=== PATIENT | female | born 1965 | race Caucasian/White ===

== ENCOUNTER 2020-12-20 10:14 | Outpatient (REF) | payer MEDICARE, MEDICAID, SELFPAY ==
[2020-12-20 11:22] LABS: MANUAL DIFF FLAG NO
[2020-12-20 11:32] LABS: Basophils Percent Auto 1.1 % (0-2); Eosinophils Absolute Auto 0.1 X10*3/uL (0.0-0.4); Eosinophils Percent Auto 3.1 % (0-4); Hematocrit 38.9 % (37-47); Hemoglobin 12.5 g/dl (12.0-16.0); Lymphocytes Absolute Auto 1.3 X10*3/uL (1.2-4.9); Lymphocytes Percent Auto 36.6 % (20-40); Mean Corpuscular HGB Conc 32.1 g/dl (31.0-35.0); Mean Corpuscular Hemoglobin 29.9 pg (27.0-33.0); Mean Corpuscular Volume 93.1 fL (80-98); Mean Platelet Volume 9.9 fL (9.4-12.3); Monocytes Absolute Auto 0.2 X10*3/uL (0.1-1.2); Monocytes Percent Auto 6.4 % (2-11); Neutrophils Absolute Auto 1.9 X10*3/uL (2.0-8.3); Neutrophils Percent Auto 52.8 % (45-73); Platelet Count 293 X10*3/uL (160-400); Red Blood Count 4.18 X10*6/uL (4.20-5.50); Red Cell Distribution Width 12.9 % (11.0-16.0); White Blood Count 3.6 X10*3/uL (4.8-10.8)
[2020-12-20 12:03] LABS: Alanine Aminotransferase 13 U/L (0-31); Alkaline Phosphatase 46 U/L (39-117); Anion Gap 10 (12-20); Aspartate Amino Transferase 18 U/L (5-31); Bilirubin Total 0.4 mg/dL (0.0-1.0); Blood Urea Nitrogen 14 mg/dL (9-16); Calcium 9.1 mg/dL (8.4-10.2); Carbon Dioxide 28 mmol/L (22-29); Chloride 108 mmol/L (96-108); Cholesterol 169 mg/dL; Estimated Glomerular Filt Rate > 60; Glucose Fasting 79 mg/dL (60-99); HDL Cholesterol 71 mg/dL; LDL Cholesterol Calculated 89 mg/dl; Magnesium 2.1 mg/dL (1.6-2.6); Potassium 4.4 mmol/L (3.3-5.1); Sodium 142 mmol/L (135-145); Total Protein 6.7 g/dL (6.5-8.0); Triglycerides 45 mg/dL
[2020-12-20 12:11] LABS: Thyroid Stimulating Hormone 2.01 uIU/mL (0.32-4.0)
== END 2020-12-20 10:15 | disposition home or self-care (01) ==
LOC: HO.HMGCLDS 10:14
PROVIDERS: PCP Internal Medicine; Visit Provider Internal Medicine
DX: E03.9 Hypothyroidism, unspecified (principal); G43.111 Migraine with aura, intractable, with status migrainosus; K21.9 Gastro-esophageal reflux disease without esophagitis
CPT/HCPCS: 36415; 80053; 80061; 82306; 83735; 84443; 85025

== ENCOUNTER → 2021-12-13 10:16 | Outpatient (BNVA) | payer MEDICARE, MEDICAID, SELFPAY | PROVIDERS: PCP Internal Medicine; Referring Provider Internal Medicine; Visit Provider Surgery | DX: K64.8 Other hemorrhoids (principal) | CPT/HCPCS: 46600; 99202 ==

== ENCOUNTER 2022-03-23 09:47 | Outpatient (REF) | payer MEDICARE, MEDICAID, SELFPAY ==
[2022-03-23 11:14] LABS: Thyroid Stimulating Hormone 1.79 uIU/mL (0.32-4.0)
== END 2022-03-23 09:48 | disposition home or self-care (01) ==
LOC: HO.LAB 09:47
PROVIDERS: PCP Internal Medicine; Visit Provider Internal Medicine Endocrinology, Diabetes & Metabolism
DX: E03.9 Hypothyroidism, unspecified (principal)
CPT/HCPCS: 36415; 84443

== ENCOUNTER 2023-09-26 09:24 | Outpatient (REF) | payer MEDICARE, MEDICAID, SELFPAY ==
[2023-09-26 09:54] LABS: MANUAL DIFF FLAG NO
[2023-09-26 10:08] LABS: Basophils Percent Auto 1.2 % (0-2); Eosinophils Absolute Auto 0.1 X10*3/uL (0.0-0.4); Eosinophils Percent Auto 2.4 % (0-4); Hematocrit 38.9 % (37.0-47.0); Hemoglobin 12.9 g/dl (12.0-16.0); Imm Gran Abs Auto 0.01 X10*3/uL (0.00-0.03); Imm Gran Pct Auto 0.3 % (0.0-0.4); Lymphocytes Absolute Auto 1.2 X10*3/uL (1.2-4.9); Lymphocytes Percent Auto 36.6 % (20-40); Mean Corpuscular HGB Conc 33.2 g/dl (31.0-35.0); Mean Corpuscular Hemoglobin 29.9 pg (27.0-33.0); Mean Corpuscular Volume 90.3 fL (80.0-98.0); Mean Platelet Volume 9.3 fL (9.4-12.3); Monocytes Absolute Auto 0.3 X10*3/uL (0.1-1.2); Monocytes Percent Auto 7.4 % (2-11); Neutrophils Absolute Auto 1.8 x10*3/uL (2.0-8.3); Neutrophils Percent Auto 52.1 % (45-73); Platelet Count 223 X10*3/uL (160-400); Red Blood Count 4.31 X10*6/uL (4.20-5.50); Red Cell Distribution Width 11.9 % (11.0-16.0); White Blood Count 3.4 X10*3/uL (4.8-10.8)
[2023-09-26 10:46] LABS: Alanine Aminotransferase 18 U/L (0-31); Alkaline Phosphatase 49 U/L (39-117); Anion Gap 11 (12-20); Aspartate Amino Transferase 21 U/L (5-31); Bilirubin Total 0.5 mg/dL (0.0-1.0); Blood Urea Nitrogen 21 mg/dL (9-16); C Reactive Protein < 0.04 mg/dL (< or = 0.50); Calcium 9.5 mg/dL (8.4-10.2); Carbon Dioxide 29 mmol/L (22-29); Chloride 105 mmol/L (96-108); Cholesterol 206 mg/dL (<200); Estimated Glomerular Filt Rate 55; Glucose Fasting 84 mg/dL (60-99); HDL Cholesterol 82 mg/dL (>40); LDL Cholesterol Calculated 116 mg/dL (<100); Potassium 4.3 mmol/L (3.3-5.1); Sodium 141 mmol/L (135-145); Total Protein 7.2 g/dL (6.5-8.0); Triglycerides 41 mg/dL (<150)
[2023-09-26 10:47] LABS: Erythrocyte Sedimentation Rate 10 MM/HR (0-20)
[2023-09-26 11:00] LABS: Thyroid Stimulating Hormone 2.69 uIU/mL (0.32-4.0)
[2023-09-27 13:53] LABS: Thyroid Peroxidase Antibodies 593 IU/mL (<9)
[2023-10-02 15:42] LABS: Anti Nuclear Antibody Screen POSITIVE (NEGATIVE)
[2023-10-02 15:49] LABS: Anti Nuclear Antibody Pattern Nuclear, Homogeneous
== END 2023-09-26 09:25 | disposition home or self-care (01) ==
LOC: HO.LAB 09:24
PROVIDERS: PCP Internal Medicine; Visit Provider Internal Medicine
DX: E03.9 Hypothyroidism, unspecified (principal); K21.9 Gastro-esophageal reflux disease without esophagitis; G44.229 Chronic tension-type headache, not intractable
CPT/HCPCS: 36415; 80053; 80061; 84443; 85025; 85652; 86038; 86039; 86140; 86376

== ENCOUNTER 2024-01-21 10:25 | Outpatient (REF) | payer MEDICARE, MEDICAID, SELFPAY ==
--- NOTE | ~2024-01-21 | US_ITS ---
EXAMINATION: US THYROID CLINICAL INFORMATION: Nontoxic multinodular goiter. COMPARISON: Thyroid ultrasound 10/14/2018. TECHNIQUE: Linear transducer jackson-scale and color Doppler examination with attention to the region of the thyroid. FINDINGS: SIZE: Measurements of the thyroid lobes and nodules are given in sagittal, anteroposterior and transverse dimensions respectively. Right Thyroid Lobe: 5.7 x 2.5 x 2.4 cm, volume 17.9 mL. Previously 4.6 x 1.9 x 1.4 cm, volume 6.4 mL. Parenchyma: The gland echotexture is heterogeneous. Thyroid vascularity is increased. Left Thyroid Lobe: 4.2 x 1.2 x 1.3 cm, volume 3.4 mL. Previously 3.4 x 1.2 x 1.3 cm, volume 2.8 mL. Parenchyma: The gland echotexture is heterogeneous. Thyroid vascularity is increased. Isthmus: 0.2 cm in maximum AP dimension. Previously 0.3 cm. Estimated total number of nodules greater than or equal to 1 cm: 2. Speech And Language Clinician nodules are described as follows: 1. Location: Right mid/inferior. Size: 3.5 x 2.3 x 2.5 cm, volume 10.0 mL. Previously: 2.3 x 1.8 x 1.6 cm, volume 3.46 mL. Nodule characteristics: Composition: Solid (2). Echogenicity: Isoechoic (1). Shape: Not taller than wide (0). Margins: Smooth (0). Echogenic Foci: None (0). ACR TI-RADS total points: 3 ACR TI-RADS category: 3 Significant change in size (>/= 20% in 2 dimensions and minimal increase of 2 mm or 50% or greater increase in volume): Yes Change in features: No Change in ACR TI-RADS risk category: Not applicable 2. Location: Right isthmus. Size: 2.3 x 0.9 x 1.8 cm, volume 1.79 mL. Previously: 1.8 x 0.9 x 1.3 cm, volume 1.10 mL. Nodule characteristics: Composition: Solid (2). Echogenicity: Isoechoic (1). Shape: Not taller than wide (0). Margins: Smooth (0). Echogenic Foci: None (0). ACR TI-RADS total points: 3 ACR TI-RADS category: 3 Significant change in size (>/= 20% in 2 dimensions and minimal increase of 2 mm or 50% or greater increase in volume): Yes Change in features: No Change in ACR TI-RADS risk category: Not applicable 3. Location: Isthmus. Size: 0.3 x 0.6 x 0.4 cm, volume 0.04 mL. Previously: 0.6 x 0.3 x 0.6 cm, volume 0.06 mL. Nodule characteristics: Composition: Cystic(0). ACR TI-RADS total points: 0 ACR TI-RADS category: 1 Significant change in size (>/= 20% in 2 dimensions and minimal increase of 2 mm or 50% or greater increase in volume): No Change in features: No Change in ACR TI-RADS risk category: Not applicable NODES: No lymphadenopathy is seen in the tissue surrounding the thyroid gland. US/US thyroid IMPRESSION: Heterogeneous and hypervascular thyroid gland with at least 2 distinct solid nodules that are increased in size compared to 10/14/2018 classified as TR-3 measuring 3.5 and 2.3 cm. If not previously obtained, further evaluation of the 3.5 cm nodule is recommended. In addition follow-up ultrasound in one year is recommended. ACR TI-RADS RECOMMENDATION REFERENCE: Ultrasound-guided fine-needle aspiration, follow up ultrasound, no further followup. * TR1 (0 point) and TR2 (2 points): No FNA or followup * TR3 (3 points): FNA if more than or equal to 2.5 cm in maximum dimension, follow up ultrasound in 1, 3 and 5 years if 1.5 to 2.4 cm in maximum dimension. * TR4 (4-6 points): FNA if more than or equal to 1.5 cm in maximum dimension, follow up ultrasound in 1, 2, 3 and 5 years if 1 to 1.4 cm in maximum dimension. * TR5 (more than or equal to 7 points): FNA if more than or equal to 1 cm in maximum dimension, follow up ultrasound every year for 5 years if 0.5 to 0.9 cm in maximum dimension. * TR3, TR4 or TR5 nodules that are below the size threshold for follow up receive no followup.
== END 2024-01-21 10:26 | disposition home or self-care (01) ==
LOC: HO.HMGCX 10:25
PROVIDERS: PCP Internal Medicine; Visit Provider Internal Medicine Endocrinology, Diabetes & Metabolism
DX: E04.2 Nontoxic multinodular goiter (principal)
CPT/HCPCS: 76536

== ENCOUNTER 2024-07-15 12:49 | Outpatient (REF) | payer MEDICARE, MEDICAID, SELFPAY | END 2024-07-15 12:50 | disposition home or self-care (01) | LOC: HO.US 12:49 | PROVIDERS: PCP Internal Medicine; Visit Provider Internal Medicine Endocrinology, Diabetes & Metabolism | DX: E04.2 Nontoxic multinodular goiter (principal) | CPT/HCPCS: 76536 ==

== ENCOUNTER 2024-09-02 12:54 | Outpatient (AMB) | payer MEDICARE, MEDICAID, SELFPAY ==
--- NOTE | 2024-09-02 13:12 | A.OFFPC_ITS ---
Vital Signs 09/02/24 13:26 Height 5 ft 7 in Weight 173 lb BMI 27.1 BP 122/62 Blood Pressure Location Rt brachial Pulse 65 Pulse Source Pulse Oximeter Temp 97.3 F Pulse Oximetry (%) 98 Intake Visit Reasons: ER Follow up Intake Note: here for an er follow has burning and feels like something stuck in the throat feels it in her shoulder blades can't eat gets stomach ache. Had fever last night temp of 102 body aches and vomiting Allergies meperidine [Demerol] Allergy (Unknown, Verified 09/02/24 13:23) nausea From [facility] Allergy (Unknown, Uncoded 06/19/23 11:24) NAUSEA & VOMITING Wellbutrin Allergy (Unknown, Uncoded 06/19/23 11:24) nausea PFSH Medical History (System 06/19/23 @ 11:24 by Sophia Pollock) Hemorrhoids with complication Hypertension Depression Thyroid disease Surgical History (System 06/19/23 @ 11:24 by Sophia Pollock) History of excision of tumor of brain meninges History of tonsillectomy Family History Mother Skin cancer Physical exam (Primary Care) Vital Signs: Last Vital Signs Temp 97.3 F 09/02/24 13:26 Pulse 65 09/02/24 13:26 BP 122/62 09/02/24 13:26 Pulse Ox 98 09/02/24 13:26 BMI result Body Mass Index 27.1 Coding Level of Care Code New Pt Level 4 (82969) Complex EM visit Add On G2211 Diagnoses Dysphagia R13.10 Assessment & Plan Assessment & Plan (1) Dysphagia: Code(s): R13.10 - Dysphagia, unspecified Plan: Patient was encouraged to take Sucralfate 4 times a day, Zofran, Pepcid in addition to Pantoprazole twice a day. Also lidocaine/maalox concoction has been added. A stat UGI series has been requested. A call was placed to the GI MD to see if an endoscopic procedure could be arranged quickly. Plan History of Present Illness The patient is a 58-year-old female presenting with gastroesophageal reflux symptoms and esophageal discomfort. In 2017, she experienced an esophageal stricture, which was treated with dilation. Recently, in the past two months, she reports the recurrence of discomfort, particularly between the shoulder blades. Over the last three weeks, the patient has described burning sensations in the upper abdomen with associated pain and difficulties lying flat owing to these symptoms. Despite being on pantoprazole and ondansetron, the symptoms have not improved significantly. In the past, she found these medications beneficial, but currently, they offer minimal relief. About two weeks ago, symptoms intensified, prompting an emergency department visit at [facility], resulting in no new diagnostic tests but a medication review and blood work. Recently, she has symptoms of body aches, chills, fever, and vomiting. No significant resolution of GERD symptoms has occurred since recovering from the virus. . 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 - Alcohol: Does not consume alcohol. - Smoking: Information not provided. - Recreation: Plans to vacation in early September, highlighting a desire for symptom improvement. Review of Systems - Gastrointestinal: Reports nausea. - Musculoskeletal: Reports body aches and chills. Physical Exam General: Appearance normal, both eyes and all related structures Nutritional Appearance: Not well nourished Orientation/consciousness: Patient oriented x3 Limitations: No limitations Head: Normal to inspection Neck: Normal visual inspection Chest: Normal palpation of entire chest wall Respiratory: Normal respiratory effort Neurology: Patient oriented x3 Results - Labs: Blood work completed previously; results within normal range. Plan - Resume pantoprazole 40 mg twice daily. - Engage upper GI series with urgent status to reassess esophageal stricture. - Continue ondansetron as needed for nausea. - Add sucralfate four times daily despite current questionable efficacy. - Introduce viscous lidocaine for symptomatic relief and encourage its use pre- prandially. Patient was informed and verbally consented to the use of an ambient scribe for clinic note documentation during this visit. Discussion Notes I discussed in detail the patient's current symptoms, potential diagnosis of esophageal stricture, and confirmed GERD. We reviewed past treatments, noting the limited efficacy of current medications and reconsidered dose adjustments. I advocated for a prompt upper GI series to evaluate esophageal conditions. The necessity of symptom control in anticipation of the patient's September travel plans was emphasized. We discussed the rationale for reinstating the sucralfate regimen and adding viscous lidocaine for temporary relief pre-meals. The patient consented to these diagnostic evaluations and treatment alterations. Additionally, an alternative gastroenterology follow-up was explored for potential expedited care. Patient Instructions - Continue pantoprazole 40 mg twice daily. - Take ondansetron as needed for nausea. - Increase sucralfate intake to four times daily, despite perceived limited benefit; reassess effectiveness at follow-up. - Use viscous lidocaine prior to meals for symptomatic relief. - Await upper GI series results and adhere to recommended follow-up care. - Seek emergency medical attention if symptoms worsen or new concerning symptoms arise. Orders: Orders Basic Metabolic Panel Today R13.10 - Dysphagia, unspecified Erythrocyte Sedimentation Rate Today R13.10 - Dysphagia, unspecified [place] upper GI series Today R13.10 - Dysphagia, unspecified Complete Blood Count no Diff Today R13.10 - Dysphagia, unspecified Lipid Panel Today R13.10 - Dysphagia, unspecified Liver Panel Today R13.10 - Dysphagia, unspecified Thyroid Stimulating Hormone Today R13.10 - Dysphagia, unspecified Referrals Gastroenterology Referral R13.10 - Dysphagia, unspecified Medications: New Magic Mouthwash Diphen/Lido/Antacid 1:1:1 Lidocaine Viscous 2 % 80mL; diphenhydramine 12.5 mg/5 mL 80mL; aluminum-mag hydrox-simeth [id number]/5mL 80mL 15 mL PO TID 240 mL 0RF
[2024-09-02 13:26] VITALS: BP 122/62; PULSE 65; TEMP 36.3; O2SAT 98; BMI 27.1
== END 2024-09-02 13:50 | disposition home or self-care (01) ==
LOC: HO.HMCSH 12:54
PROVIDERS: PCP Internal Medicine; Visit Provider Internal Medicine
DX: R13.10 Dysphagia, unspecified (principal)

== ENCOUNTER → 2024-09-02 12:54 | Outpatient (BNVA) | payer MEDICARE, MEDICAID, SELFPAY | PROVIDERS: PCP Internal Medicine; Visit Provider Internal Medicine | DX: R13.10 Dysphagia, unspecified (principal) | CPT/HCPCS: 99202 ==

== ENCOUNTER 2024-09-04 11:38 | Outpatient (REF) | payer MEDICARE, MEDICAID, SELFPAY ==
--- NOTE | 2024-09-04 13:08 | ECG_ITS ---
Test Reason : R09.A2 Blood Pressure : */* mmHG Vent. Rate : 57 BPM Atrial Rate : 57 BPM P-R Int : 132 ms QRS Dur : 80 ms QT Int : 426 ms P-R-T Axes : 21 25 49 degrees QTcB Int : 414 ms Sinus bradycardia Otherwise normal ECG When compared with ECG of 15-Aug-2004 13:52, T wave inversion no longer evident in Anterior leads Referred By: Everett Carter Electronically Signed By: JOSE LUIS GUTIERRES MD
[2024-09-04 13:46] LABS: Hematocrit 37.6 % (37.0-47.0); Hemoglobin 12.7 g/dl (12.0-16.0); Mean Corpuscular HGB Conc 33.8 g/dl (31.0-35.0); Mean Corpuscular Hemoglobin 29.8 pg (27.0-33.0); Mean Corpuscular Volume 88.3 fL (80.0-98.0); Mean Platelet Volume 9.6 fL (9.4-12.3); Platelet Count 245 X10*3/uL (160-400); Red Blood Count 4.26 X10*6/uL (4.20-5.50); White Blood Count 4.9 X10*3/uL (4.8-10.8)
[2024-09-04 14:28] LABS: Erythrocyte Sedimentation Rate 10 MM/HR (0-20)
[2024-09-04 14:31] LABS: Alanine Aminotransferase 25 U/L (0-31); Alkaline Phosphatase 41 U/L (39-117); Anion Gap 9 (12-20); Aspartate Amino Transferase 26 U/L (5-31); Bilirubin Direct 0.2 mg/dL (0.0-0.5); Bilirubin Total 0.5 mg/dL (0.0-1.0); Blood Urea Nitrogen 12 mg/dL (9-16); Carbon Dioxide 27 mmol/L (22-29); Chloride 111 mmol/L (96-108); Cholesterol 173 mg/dL (<200); Estimated Glomerular Filt Rate > 60; Glucose Random 80 mg/dL (60-115); HDL Cholesterol 61 mg/dL (>40); LDL Cholesterol Calculated 102 mg/dL (<100); Potassium 4.1 mmol/L (3.3-5.1); Sodium 143 mmol/L (135-145); Total Protein 7.3 g/dL (6.5-8.0); Triglycerides 51 mg/dL (<150)
== END 2024-09-04 11:39 | disposition home or self-care (01) ==
LOC: HO.LAB 11:38
PROVIDERS: PCP Internal Medicine; Referring Provider Internal Medicine; Visit Provider Internal Medicine Gastroenterology
DX: R09.A2 Foreign body sensation, throat (principal); R13.10 Dysphagia, unspecified; R07.89 Other chest pain
CPT/HCPCS: 36415; 80048; 80061; 80076; 84443; 85027; 85652; 93005; 99202

== ENCOUNTER 2024-09-04 11:38 | Outpatient (AMB) | payer MEDICARE, MEDICAID, SELFPAY ==
--- NOTE | 2024-09-04 11:40 | MHC.OFFVIS ---
Vital Signs 09/04/24 11:41 Height 5 ft 7 in Weight 173 lb 4.533 oz BMI 27.1 BP 134/75 Blood Pressure Location Lt brachial Position Sitting Pulse 66 Intake Visit Reasons: Dysphagia Intake Note: New patient in office today for dysphagia. CC: Patient c/o feeling a constriction from her throat and is now feeling it from her chest and back. She had a a balloon procedure to stretch her esophagus on 2016 at [facility]. She also reports epigastric pain after eating, constipation, heartburn, and acid reflux. She was seen in the ER @ [facility] last Saturday for GERD and nausea. 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 Required: No Accompanied by: Self / Same As Patient Allergies meperidine [Demerol] Allergy (Unknown, Verified 09/04/24 11:50) nausea From VISTARIL Allergy (Unknown, Uncoded 06/19/23 11:24) NAUSEA & VOMITING Wellbutrin Allergy (Unknown, Uncoded 06/19/23 11:24) nausea HPI HPI Dysphagia: Details: HPI 58 yr old f with hx of thyroid dz here for assessment She has feeling of something stuck in the esophagus she can swallow fine she has a feeling like something squeezing in the chest, does not go to arm or neck, worse with bending or lifting she has a lot of heartburn, she takes pantoprazole 80 mg and it does not work she tried carafate after going to ER and pepcid, zofran, maybe helping a little she has constipation, normal for her, going on for years small amount of blood in stool she had cologuard and it was negative she had last EGD 2017 and she had stretching for the same sx except she has burning in the stomahc as well now she has migraines and was taking a lot of 400 mg ibuprofen three times a week for years weight loss over 1 week, eating small amounts of food due to stomach irritation ROS: Constitutional : No Weight loss, No Fever, No Chills ENT/Mouth : No sore throat, No Rhinorrhea Eyes: No Swelling, No Redness Cardiovascular : No Chest Pain, No SOB, No Edema Respiratory : No Cough, No Sputum, No Wheezing Gastrointestinal : see HPI Genitourinary : NO Dysuria, No Urinary Frequency, No Hematuria, No Urgency Musculoskeletal : + joint pain, No Myalgias, No Joint Swelling Skin : No Skin Lesions, No rash Neuro : No Weakness, No Numbness, No Dizziness, + Headache Psych : No Anxiety/Panic, No Depression Heme/Lymph: No Bruising, No Lymphadenopathy Endocrine : No Polyuria, No Polydipsia All other systems reviewed and are negative. Medical History Hemorrhoids with complication Hypertension Depression Thyroid disease Surgical History History of excision of tumor of brain meninges History of tonsillectomy Family History Mother Skin cancer Social History non smoker, no alcohol or drug use EXAM: GENERAL: The patient is well developed and nontoxic. VITAL SIGNS:see workflow HEENT: Nonicteric sclerae, PERRLA, EOMI. Oropharynx clear. Moist mucous membranes. Conjunctivae appear well perfused. thyroid nodules on left felt, tender CHEST: Chest wall is nontender. HEART: Regular rate and rhythm without murmurs. LUNGS: Clear to auscultation bilaterally. ABDOMEN: Soft, positive bowel sounds, tender epigastrium, no organomegaly.no flank tenderness SKIN: No rash, no excessive bruising, petechiae, or purpura. NEUROLOGIC: Cranial nerves II-XII intact without motor/sensory deficit. Psych: normal affect A/P: 1/ GLobus sensation, improved previously with dilation, could be dysmotility, GERD, stricture 2/ epigastric pain, ddx: PUD, neoplasia 3/ rectal bleeding, could be hemorrhoidal , but need to r/o low lying rectal lesion PLAN: 1/ labs 2/ ECG--sx not typical of cardiac cause but will check 3/ egd and colo with suprep and zofran, urgent PFSH Medical History Hemorrhoids with complication Hypertension Depression Thyroid disease Surgical History History of esophagogastroduodenoscopy (EGD) History of excision of tumor of brain meninges History of tonsillectomy Family History Mother Skin cancer Social History Alcohol intake: never Patient Tobacco Use Status: Never used Tobacco Use of substances other than those prescribed or required for medical reasons: No Physical Exam Vital Signs: Last Vital Signs Pulse 66 09/04/24 11:41 BP 134/75 09/04/24 11:41 BMI result Body Mass Index 27.1 Assessment & Plan Assessment & Plan (1) Globus sensation: Code(s): R09.A2 - Foreign body sensation, throat Category: Medical Plan: as above (2) Chest discomfort: Code(s): R07.89 - Other chest pain Category: Medical Plan: as above Orders: Orders ECG 12 lead EKG Today R07.89 - Other chest pain, R09.A2 - Foreign body sensation, throat Medications: New ondansetron 4 mg PO Q8H PRN 10 tabs 0RF nausea and vomiting sodium,potassium,mag sulfates 17.5-3.13-1.6 gram (Suprep Bowel Prep Kit) DILUTE; drink 1/2 at 6-8 pm and half at 11 PM- 1AM 354 mL 0RF Coding Level of Care Code New Pt Level 4 (50282) Diagnoses Globus sensation R09.A2 Chest discomfort R07.89
[2024-09-04 11:41] VITALS: BP 134/75; PULSE 66; BMI 27.1
== END 2024-09-04 14:02 | disposition home or self-care (01) ==
PROVIDERS: PCP Internal Medicine; Visit Provider Internal Medicine Gastroenterology
DX: R09.A2 Foreign body sensation, throat (principal); R07.89 Other chest pain
CPT/HCPCS: 99204

== ENCOUNTER → 2024-09-04 13:08 | Outpatient (BNV) | payer MEDICARE, MEDICAID, SELFPAY | PROVIDERS: PCP Internal Medicine; Referring Provider Internal Medicine; Visit Provider Internal Medicine Cardiovascular Disease | DX: R00.1 Bradycardia, unspecified (principal) | CPT/HCPCS: 93010 ==

== ENCOUNTER 2024-09-08 08:53 | Day surgery (SDC) | payer MEDICARE, MEDICAID, SELFPAY ==
--- NOTE | 2024-09-07 09:56 | HO.ANESPROP2 ---
Documented by User: Madeline Zambrano NP 09/07/24 09:56 HPI - Anesthesia Eval Consult details Narrative: 58yo F for Upper Endoscopy and Colonoscopy PMF Active Problems Active Problems: All Active Problems Chest discomfort (Acute) Globus sensation (Acute) Hemorrhoids with complication (Acute) Hypertension (Acute) Depression (Acute) Thyroid disease (Acute) Past Medical History Medical History Hemorrhoids with complication Hypertension Depression Thyroid disease Family History Family History Mother Skin cancer Surgical History Surgical History History of esophagogastroduodenoscopy (EGD) History of excision of tumor of brain meninges History of tonsillectomy Social History Social History Alcohol intake: never Patient Tobacco Use Status: Never used Tobacco Use of substances other than those prescribed or required for medical reasons: No Have you been hit, kicked, punched, or otherwise hurt by someone within the past year? If so, by whom?: No Are you DNR?: No Advance Directives: No Advance Directives Information Provided: Yes Recently lost weight without trying: No Meds Allergies Allergy/AdvReac Type Severity Reaction Status Date / Time meperidine [Demerol] Allergy Unknown nausea Verified 09/04/24 11:50 From VISTARIL Allergy Unknown NAUSEA & Uncoded 06/19/23 11:24 VOMITING Wellbutrin Allergy Unknown nausea Uncoded 06/19/23 11:24 Home Medications ?Medication ?Instructions ?Recorded ?Confirmed ?Last Taken ?Type famotidine 20 mg tablet 20 mg PO BID 09/04/24 Unknown History gabapentin 300 mg capsule 300 mg PO BID 09/04/24 Unknown History levothyroxine 100 mcg capsule 100 mcg PO DAILY 09/04/24 Unknown History ondansetron HCl 4 mg tablet 4 mg PO Q8H 09/04/24 Unknown History pantoprazole 40 mg tablet,delayed 80 mg PO DAILY 09/04/24 Unknown History release rimegepant 75 mg disintegrating 75 mg PO Q OTHER DAY 09/04/24 Unknown History tablet (Nurtec ODT) sucralfate 1 gram tablet 1 g PO QIDACHS 09/04/24 Unknown History zolpidem 10 mg tablet (Ambien) 5 mg PO BEDTIME PRN 09/04/24 Unknown History Assessment and Plan Assessment Anesthesia Assessment: Chart Reviewed Documented by User: Fredrick Patel MD 09/08/24 10:00 PMF Past Medical History Medical History Hemorrhoids with complication Hypertension Depression Thyroid disease Family History Family History Mother Skin cancer Family history of problems with anesthesia: No Surgical History Surgical History History of esophagogastroduodenoscopy (EGD) History of excision of tumor of brain meninges History of tonsillectomy History of Problems with Anesthesia: No Social History Social History Alcohol intake: never Patient Tobacco Use Status: Never used Tobacco Use of substances other than those prescribed or required for medical reasons: No Have you been hit, kicked, punched, or otherwise hurt by someone within the past year? If so, by whom?: No Are you DNR?: No Advance Directives: No Advance Directives Information Provided: Yes Recently lost weight without trying: No Meds Allergies Allergy/AdvReac Type Severity Reaction Status Date / Time meperidine [Demerol] Allergy Unknown nausea Verified 09/04/24 11:50 From [facility] Allergy Unknown NAUSEA & Uncoded 06/19/23 11:24 VOMITING Wellbutrin Allergy Unknown nausea Uncoded 06/19/23 11:24 Home Medications ?Medication ?Instructions ?Recorded ?Confirmed ?Last Taken ?Type famotidine 20 mg tablet 20 mg PO BID 09/04/24 Unknown History gabapentin 300 mg capsule 300 mg PO BID 09/04/24 Unknown History levothyroxine 100 mcg capsule 100 mcg PO DAILY 09/04/24 Unknown History ondansetron HCl 4 mg tablet 4 mg PO Q8H 09/04/24 Unknown History pantoprazole 40 mg tablet,delayed 80 mg PO DAILY 09/04/24 Unknown History release rimegepant 75 mg disintegrating 75 mg PO Q OTHER DAY 09/04/24 Unknown History tablet (Nurtec ODT) sucralfate 1 gram tablet 1 g PO QIDACHS 09/04/24 Unknown History zolpidem 10 mg tablet (Ambien) 5 mg PO BEDTIME PRN 09/04/24 Unknown History Exam Airway Mallampati Class: II TM Dist: <=3cm Neck ROM: Full Heart: ok Lungs: ok Assessment and Plan Assessment Anesthesia Assessment: Anesthesia Plan Discussed Final Anesthetic Review Family History of Problems with Anesthesia: No History of Problems with Anesthesia: No NPO: Yes ASA Class: II Final Preanesthetic Review: No Changes in Pt Med Stat, Meds/Allgs Chart Reviewed, Consent Obtained/Reviewed and Anes Risks/Benef Reviewed Patient Risk: Low Procedure Risk: Intermediate Anesthetic Plan Anesthetic Plan: Agree w/ Assess. and Plan and TIVA Disposition: Standard PACU
[2024-09-08 09:12] VITALS: BP 152/80; PULSE 58; RESP 16; TEMP 36.7; O2SAT 100; BMI 26.6
[2024-09-08] MEDS: Lactated Ringers 1,000 ML 100 ML IVCONT (09:18)
--- NOTE | 2024-09-08 09:35 | MHC.SHP ---
Pre-Procedural Eval Section A - 24 Hr Update-Section A only Date of Service: 09/08/24 The patient is an INPATIENT: No The patient has been examined within 24 hours of the surgical procedure. The History & Physical has been completed within 30 days and I have reviewed it.: Yes Section B - Complete if H&P > 30 days Chief Complaint: Foreign body sensation, throat Allergies: Allergies Allergy/AdvReac Type Severity Reaction Status Date / Time meperidine [Demerol] Allergy Unknown nausea Verified 09/04/24 11:50 From [facility] Allergy Unknown NAUSEA & Uncoded 06/19/23 11:24 VOMITING Wellbutrin Allergy Unknown nausea Uncoded 06/19/23 11:24 Plan Diagnosis/Plan: Unchanged I have reviewed the history and physical and performed a pertinent physical examination on my patient. No changes have occurred unless specified. Time Spent With Patient Time: Total time managing care of this patient today ____ minutes.
--- NOTE | 2024-09-08 10:26 | HO.OPN-COLON ---
Colonoscopy Operative Note Operative Note Date of Service: 09/08/24 Narrative: Operative Information Procedure Description: EGD, Colonoscopy Indication: rectal bleeding and epigastric fullness, globus sensation Anesthesia: MAC FLEXIBLE TRANSORAL UPPER GASTROINTESTINAL ENDOSCOPY AND COLONOSCOPY PROCEDURE NOTE UPPER ENDOSCOPY Consent: Indications for the procedure and potential complications of bleeding, perforation, reaction to medications and missed diagnosis were discussed with the patient and informed consent was obtained. Instrument: Olympus GIF H 190 J mid size upper endoscope Monitoring: Vital signs and clinical assessment, continuous EKG monitoring, Pulse oximetry, Carbon Dioxide monitoring and blood pressure monitoring were done throughout the procedure. Procedure: The patient was placed in the left lateral decubitis position and pre-procedure medications were administered and a bite block was placed. The endoscope was inserted into the mouth and advanced under direct vision to the third part of duodenum. A careful inspection was made as the upper endoscope was withdrawn including a retroflexed examination of the proximal stomach; Findings and interventions are described below. Findings: Larynx:normal Esophagus: GE junction at 39 cm, diaphragm hiatus at 39 cm, mild esophagitis at GEJ, bx taken from here and dital, proximal esophagus. balloon dilation of UES and LES to 20 mm, no tears seen Stomach: Few scattered fundic gland polyps. Biopsies were obtained. Grade 2 flap valve on retroflexed examination of the cardia. Pyloric outlet was dilated with wire guided balloon to 20 mm, no tears seen. minimal gastric movement noted. Duodenum: Normal bulb and descending duodenum, bx taken Intervention: Biopsies as noted above, wire guided balloon dilation COLONOSCOPY Instrument: Olympus variable stiffness pediatric scope 190L Colonoscopy Monitoring: Vital signs and clinical assessment, continuous EKG monitoring, Pulse oximetry, Carbon Dioxide monitoring and blood pressure monitoring were done throughout the procedure. Colon withdrawal time was 12 minutes. Procedure: The patient was placed in the left lateral decubitis position and pre-procedure medications were administered. After a digital rectal examination of the ano-rectum, the video colonoscope was inserted into the rectum and advanced through the colon to the cecum/TI. The colonoscope was slowly withdrawn in a retrograde panoramic fashion and the colon mucosa was carefully examined including a retroflexed view of the rectum. Findings and interventions are described below. Procedure Difficulty:moderate Findings: Terminal Ileum-normal Cecum: 8-9 mm sessile polyp lifted with eleview and removed with cold snare, 2-3 mm sessile polyp removed with cold forceps Right sided retroflexion- normal Ascending Colon: normal Transverse Colon -normal Descending Colon:normal Sigmoid Colon: normal Rectum: Retroflexion with small internal hemorrhoids, grade I Anorectum - normal Colon preparation: Underwood Bowel Preparation Scale Right colon; 2 Transverse colon: 2 Left colon; 2 (0 = Unprepared colon segment with mucosa not seen due to solid stool that cannot be cleared. 1 = Portion of mucosa of the colon segment seen, but other areas of the colon segment not well seen due to staining, residual stool and/or opaque liquid. 2 = Minor amount of residual staining, small fragments of stool and/or opaque liquid, but mucosa of colon segment seen well. 3 = Entire mucosa of colon segment seen well with no residual staining, small fragments of stool or opaque liquid) Impression and Post Procedure Diagnosis: Endoscopy Findings: fundic gland polyps esophagitis Colonoscopy Findings: colon polyps internal hemorrhoids Plan: Await Pathology results Repeat Colonoscopy in 5 years due to polyps or earlier if clinically indicated High fiber diet leaflet avoid straining at stool, epsom salts and sitz bath, anusol supps or cream if ongoing sx then GES Above findings were reviewed with the patient and relevant handouts were provided if indicated.
[2024-09-08 10:32] VITALS: BP 106/72; PULSE 74; RESP 16; TEMP 36.1; O2SAT 98
[2024-09-08 10:47] VITALS: BP 131/78; PULSE 54; RESP 16; O2SAT 98
== END 2024-09-08 11:59 | disposition home or self-care (01) ==
PROVIDERS: PCP Internal Medicine; Visit Provider Internal Medicine Gastroenterology
PROC: (CPT 45380; principal; 2024-09-08 10:40)
DX: D12.0 Benign neoplasm of cecum (principal); K64.0 First degree hemorrhoids; K31.7 Polyp of stomach and duodenum; K20.80 Other esophagitis without bleeding; K29.70 Gastritis, unspecified, without bleeding; R13.10 Dysphagia, unspecified; I10 Essential (primary) hypertension; E07.9 Disorder of thyroid, unspecified; F32.A Depression, unspecified; Z79.899 Other long term (current) drug therapy
CPT/HCPCS: 45380; 43249; 43248; 43239; 88305; 88313; 88342; C1726; J2003; J2704; J3010

== ENCOUNTER → 2024-09-08 08:53 | Outpatient (BNV) | payer MEDICARE, MEDICAID, SELFPAY | PROVIDERS: PCP Internal Medicine; Visit Provider Internal Medicine Gastroenterology | DX: K62.5 Hemorrhage of anus and rectum (principal); D12.0 Benign neoplasm of cecum; K64.0 First degree hemorrhoids; R09.A2 Foreign body sensation, throat; R19.06 Epigastric swelling, mass or lump; K20.90 Esophagitis, unspecified without bleeding; K31.7 Polyp of stomach and duodenum; K31.1 Adult hypertrophic pyloric stenosis | CPT/HCPCS: 43239; 43245; 43249; 45380; 45381; 45385 ==

== ENCOUNTER 2024-10-23 13:00 | Outpatient (REF) | payer MEDICARE, MEDICAID, SELFPAY ==
--- OUTSIDE RECORDS SUMMARY | 2024-10-23 14:41 | XMS_ITS ---
Author Organization [facility] Address [address] [place] [phone] Care Team Providers Care Cut Off Saw Grader Name Role Phone Omero (RETIRED) Chris YANG Primary Care Provid er Unavailable Josiah Engel, Ridge Unavailable [phone] REASON FOR VISIT cancelled her 01-30-2024 appointment Encounters Encounter Location Date Provider Diagnosis [facility] [address] [place] [phone] 12/16/2023 Ridge Rahman Jr Plan Of Treatment No Information Progress Notes * CLEMENTE RASMUSSENOB:1965 ( 58 yo F)Acc No.[id number]:12/16/2023 Patient:?ROSA RASMUSSENNE :1965???Age:58 Y???Sex:Female Address:[address] [place] [address], [address] * true * Date:? Generated for Steven zuñiga/Emigdio/eTransmitting on:?10/23/2024 02:41 PM EST
--- OUTSIDE RECORDS SUMMARY | 2024-10-23 14:41 | XMS_ITS ---
Author Organization [facility] Address [address] [place] [phone] Care Team Providers Care Bottom Scrubber Name Role Phone Omero (RETIRED) Chris YANG Primary Care Provid er Unavailable Josiah Engel, Ridge Hurd [phone] REASON FOR VISIT Patient presents today for CONSTIPATION Encounters Encounter Location Date Provider Diagnosis [facility] [address] [facility] [address] [place] [phone] 01/30/2024 Ridge Rahman Jr Plan Of Treatment No Information Progress Notes * ROSA RASMUSSENSISIOB:1965 ( 58 yo F)Acc No.[id number]:01/30/2024 Progress Notes Patient:?RADHA RASMUSSEN Provider:?Ridge Rahman MD :1965???Age:58 Y???Sex:Female D ate:01/30/2024 Address:[address] [place], [place] [id number] Pcp:Chris Jamil (RETIRE D), DO Subjective: * Chief Complaints: * ???1. Patient presents today for CONSTIPATION. * Medical History:? Objective: * Vitals:? Assessment: Plan: * Treatment: * * The named appointment provid er may or may not be the originator of this progress note, and it is not deemed complete until electronically signed by the appointment provider. Sign off status: Pending * Provider:?Ridge Rahman MD Date:?0 01/30/2024 Generated for Steven zuñiga/Emigdio/Prakashsmitting on:?10/23/2024 02:41 PM EST
--- OUTSIDE RECORDS SUMMARY | 2024-10-23 14:41 | XMS_ITS | Patient Health Record ---
Author Organization [facility] Address [address] [place] [address] Care Team Providers Care Men'S Golf Coach Name Role Phone Omero (RETIRED) Chris YANG Primary Care Provid er Unavailable Josiah Engel, Ridge Unavailable Reason For Referral No Information Encounters Encounter Location Date Provider Diagnosis [facility] [address] [place] [address] 12/16/2023 Ridge Rahman Jr Plan Of Treatment No Information Insurance Providers Payer Name Payer Address Payer Phone Subscriber Number Group Number Insured Name Patient Relationship to Insured Coverage Start Date Coverage End Date MED[place]ARE OF [place] [address] [place] [id number] RADHA RASMUSSEN Self - patient is the insured MEDICAID OF [facility] [address] [place] [phone] [id number] RADHA RASMUSSEN Self - patient is the insured
--- OUTSIDE RECORDS SUMMARY | 2024-10-23 14:42 | XMS_ITS | Patient Health Record ---
[facility] Address [address] [place] [address] Care Team Providers Care Graphics Artist Name Role Phone Chris Jamil MD Primary Care Provider Unavail able Oanhanabel Annette Unavailable [phone] Allergies Allergen (clinical drug ingredient) Drug/Non Drug Allergy documented on EMR Reaction Allergy Type Onset Date Status meperidine Demerol nausea Drug Allergy Active hydroxyzine Vistaril nausea Drug Allergy Activ e Wellbutrin nausea, headache Drug Allergy Active topiramate Topiramate depression Drug Allergy Acti ve Reason For Referral No Information Medications Medication SIG (Take, Route, Frequency, Duration) Notes Start Date End Date Status Vitamin D Active Zolpidem Tartrate 10 MG 1 tablet at bedt carlos as needed Orally Once a day Ambien Active Pantoprazole Sodium 40 MG 1 tablet Orally Once a day for 30 day(s) Active Euthyrox 75 MCG 1 tablet in the morning on an empty stomach Orally Once a day for 30 day(s) Levothyroxine Active Propranolol HCl 20 MG 1 tablet Orally On ce a day for 30 day(s) Active Gabapentin 300 MG 1 capsule Orally Once a day for 30 day(s) Active Nortriptyline HCl 75 MG 1 capsule Orally Once a day for 30 day(s) Active Immunizations Vaccine Route Administration Date Status Comme nts COVID-19 Pfizer BioNTech Vaccine Unknown 10/02/2021 Administered 1st 09/09/20 2nd 04/01/21 3rd Moderna 10/02/21 Social History Tobacco Use: Social History Observation Description Date Details (start date - stop date) Never Smoker NA - NA Tobacco Use/Smoking Question Answer Notes Are you a: nonsmoker Additional Findings: Tobacco Non-User Current no n-smoker Alcohol Screen Question Answer Notes Did you have a drink containing alcohol in the p ast year? No Points 0 Interpretation Negative Tobacco use other than smoking: Question Answer Notes Are you an other tobacco user? 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 Plan Of Treatment Pending Test Test Name Order Date X ray : Foot, left 3V 02/13/2022 X ray : Foot, right 3V 02/13/2022 Insurance Providers Payer Name Payer Address Payer Phone Subscriber Number Group Number Insured Name Patient Relationship to Insured Coverage Start Date Coverage End Date Medicare National [employer]t [employer] [address] [place] [address] [id number] Rosalinda Cornejo Self - patient is the insured Medical (General) History Medical History History ICD Code Gastritis Dermatitis Headaches/Migraines Neck pain Hypothyroidism Gastroesophageal reflux disease (GERD) Meningioma Anxiety Depression Restless leg syndrome Back,Hip,and Knee pain Numbness Hashimotos thyroiditis Surgical History Surgery Date(Month/Year) tonsillectomy tubal ligation meningioma resection 11/2017
--- OUTSIDE RECORDS SUMMARY | 2024-10-23 14:42 | XMS_ITS | Clinical Summary ---
Author Organization [facility] Address [address] [place] [address] Care Team Providers Care Night Cleaner Name Role Phone Chris Jamil DO Primary Care Provider [phone] Social History Tobacco Use Types Packs/Day Years Used Date Smoking Tobacco: Never Assessed Comments Unknown Sex and Gender Information Value Date Recorded Sex Assigned at Not on file Legal Sex Female 9:34 PM EST Gender Identity Not on file Sexual Orientation Not on file Plan of Treatment Health Maintenance Due Date Last Done Comments Breast Cancer Screening 1965 DTaP,Tdap,and Td Vaccines (1 - Tdap) 1985 Hepatitis B Vaccines (1 of 3 - 19+ 3-dose series) 1985 Cervical Cancer Screening: P ap Smear 11/28/1987 Pneumococcal Vaccine: 50+ Ye ars (1 of 1 - PCV) 2016 Zoster Vaccines (1 of 2) 2016 Colorectal Cancer Screening: Colonoscopy 07/21/2022 Depression Screening 07/21/2022 HIV Screening 07/21/2022 Hepatitis C Screening 07/21/2022 Social Influencers of Health Screening 07/21/2022 COVID-19 Vaccine ( - 2023-2 5 season) 2024 Influenza Vaccine (#1) 2024 HIB Vaccines Aged Out No longer eligi ble based on patient's age to complete this topic HPV Vaccines Aged Out No longer eligi ble based on patient's age to complete this topic Hepatitis A Vaccines Aged Out No long er eligible based on patient's age to complete this topic IPV Vaccines Aged Out No longer eligi ble based on patient's age to complete this topic MMR Vaccines Aged Out No longer eligi ble based on patient's age to complete this topic Meningococcal ACWY Vaccine Aged Out N o longer eligible based on patient's age to complete this topic Meningococcal B Vacine Aged Out No lo nger eligible based on patient's age to complete this topic Pneumococcal Vaccine: Pediat rics (0 to 5 Years) and At-Risk Patients (6 to 64 Years) Aged Out No longer eligible b ased on patient's age to complete this topic RSV Immunization Patients Un neptali 20 months Aged Out No longer eligible b ased on patient's age to complete this topic Varicella Vaccines Aged Out No longer eligible based on patient's age to complete this topic Care Teams Night Cleaner Relationship Specialty Start Date End Date Chris Jamil DO [address] [place] [phone] PCP - General Internal Medicine 09/16/17
[2024-10-26 19:04] LABS: Gliadin Deamidated IgA Ab <1.0 U/mL; Gliadin Deamidated IgG Ab <1.0 U/mL; Transglutaminase Ab IgG <1.0 U/mL; Transglutaminase IgA <1.0 U/mL
== END 2024-10-23 13:01 | disposition home or self-care (01) ==
LOC: HO.LAB 13:00
PROVIDERS: PCP Internal Medicine; Visit Provider Internal Medicine Gastroenterology
DX: K29.80 Duodenitis without bleeding (principal); R10.33 Periumbilical pain; G89.29 Other chronic pain
CPT/HCPCS: 36415; 86258; 86364

== ENCOUNTER 2024-11-30 12:40 | Outpatient (AMB) | payer MEDICARE, MEDICAID, SELFPAY ==
--- NOTE | 2024-11-30 12:43 | MHC.OFFVIS ---
Vital Signs 11/30/24 12:46 Height 5 ft 7 in Weight 160 lb 14.999 oz BMI 25.2 BP 132/77 Blood Pressure Location Lt brachial Position Sitting Pulse 82 Intake Visit Reasons: Gastroparesis Intake Note: Rosalinda presents in the office as a follow up for gastroparesis. CC: States that she is continuing the have issues with her constipation. She also has a questions regarding her report stated that her stomach movements are deminished? Possible gastroparesis? Security Sales Consultant Required: No Allergies meperidine [Demerol] Allergy (Unknown, Verified 11/30/24 12:54) nausea From VISTARIL Allergy (Unknown, Uncoded 11/30/24 12:54) NAUSEA & VOMITING Wellbutrin Allergy (Unknown, Uncoded 11/30/24 12:54) nausea HPI HPI Gastroparesis: Details: 59 yr old f with hx of thyroid dz here for f/u RECAP She had feeling of something stuck in the esophagus she can swallow fine she had a feeling like something squeezing in the chest, does not go to arm or neck, worse with bending or lifting she has a lot of heartburn, she takes pantoprazole 80 mg and it does not work she tried carafate after going to ER and pepcid, zofran, maybe helping a little she has constipation, normal for her, going on for years small amount of blood in stool she had cologuard and it was negative she had last EGD 2016 and she had stretching for the same sx except she has burning in the stomahc as well now she has migraines and was taking a lot of 400 mg ibuprofen three times a week for years weight loss over 1 week, eating small amounts of food due to stomach irritation I did a EGD, colo 09/12 with balloon dilation Impression and Post Procedure Diagnosis: Endoscopy Findings: fundic gland polyps esophagitis Colonoscopy Findings: colon polyps internal hemorrhoids bx with increased WC in duodenum, celiac neg tubualr adenomata INTERIM: improvement in globus sensation appetite is not as good she has fullness and satiety she cant eat at night she has constipation, takes fiber ant it helps a little can take up to a week to go some times anxiety, no depression EXAM: GENERAL: The patient is well developed and nontoxic. VITAL SIGNS:see workflow HEENT: Nonicteric sclerae, PERRLA, EOMI. Oropharynx clear. Moist mucous membranes. Conjunctivae appear well perfused. thyroid nodules on left felt, tender CHEST: Chest wall is nontender. HEART: Regular rate and rhythm without murmurs. LUNGS: Clear to auscultation bilaterally. ABDOMEN: Soft, positive bowel sounds, tender epigastrium, no organomegaly.no flank tenderness SKIN: No rash, no excessive bruising, petechiae, or purpura. NEUROLOGIC: Cranial nerves II-XII intact without motor/sensory deficit. Psych: normal affect A/P: 1/ GLobus sensation, improved 2/ satiety? related to constipation, or gastroparesis PLAN: 1/ trial of motegrity, if not covered then linaclotide 2/ if ongoing sx then GES PFSH Medical History Hemorrhoids with complication Hypertension Depression Thyroid disease Surgical History History of colonoscopy with polypectomy (09/08/24) History of esophagogastroduodenoscopy (EGD) History of excision of tumor of brain meninges History of tonsillectomy Family History Mother Skin cancer Social History Alcohol intake: never Patient Tobacco Use Status: Never used Tobacco Physical Exam Vital Signs: Last Vital Signs Pulse 82 11/30/24 12:46 BP 132/77 11/30/24 12:46 BMI result Body Mass Index 25.2 Assessment & Plan Assessment & Plan (1) Globus sensation: Code(s): R09.A2 - Foreign body sensation, throat Category: Medical Plan: as above Medications: New prucalopride (Motegrity) 2 mg (2 x 1 mg) PO DAILY 90 tabs 2RF Coding Level of Care Code Est Pt Level 3 (73307) Diagnoses Globus sensation R09.A2
[2024-11-30 12:46] VITALS: BP 132/77; PULSE 82; BMI 25.2
--- OUTSIDE RECORDS SUMMARY | 2024-11-30 14:33 | XMS_ITS | Clinical Summary ---
Author Organization [facility] Address [address] [place] [address] Care Team Providers Care Exhaust Worker Name Role Phone Chris Jamil DO Primary Care Provider [phone] Encounters Date Type Department Care Team Description 11/19/[address] [place] [address] Jessica Portillo MA from Last 3 Months Social History Tobacco Use Types Packs/Day Years [...] - 2023-2 5 season) 2024 Influenza Vaccine (Season Ended) 2025 HIB Vaccines Aged Out No longer eligi [...] age to complete this topic Meningococcal B Vaccine Aged Out No l onger eligible based on patient's age to complete [...] age to complete this topic Care Teams Exhaust Worker Relationship Specialty Start Date End Date Chris Jamil DO [address] [place] [phone] PCP - General Internal Medicine 09/16/17
--- OUTSIDE RECORDS SUMMARY | 2024-11-30 14:33 | XMS_ITS | Encounter Summary ---
Author Organization [facility] Address [address] [place] [address] Care Team Providers Care Winding Inspector Name Role Phone Chris Jamil DO Primary Care Provider [phone] Encounter Details Date Type Department Care Team (Late st Contact Info) Description 11/19/2024 Telephone Neurosurgery [facility] [address] [facility] [address] [place] [address] Jessica Portillo MA Social History Tobacco Use Types Packs/Day Years Used Date Smoking Tobacco: Never Assessed Comments Unknown Sex and Gender Information Value Date Recorded Sex Assigned at Not on file Legal Sex Female 9:34 PM EST Gender Identity Not on file Sexual Orientation Not on file documented as of this encounter Progress Notes * Jessica Portillo MA - 11/19/2024 9:50 AM EDT Called patient to check in, wanted to verify if her neurologist ordered Brain MRI, per patient the neurologist at [facility] left, she is now seeing Dr. Moreno in [place]. Per patient she thought imaging would be every two years. I will verify with Dr. Powell and get back to patient. documented in this encounter Plan of Treatment Not on file documented as of this encounter Visit Diagnoses Not on filedocumented in this encounter Care Teams Winding Inspector Relationship Specialty Start Date End Date Chris Jamil DO [address] [place] [phone] PCP - General Internal Medicine 09/16/17 documented as of this encounter
== END 2024-11-30 13:22 | disposition home or self-care (01) ==
PROVIDERS: PCP Internal Medicine; Visit Provider Internal Medicine Gastroenterology
DX: R09.A2 Foreign body sensation, throat (principal)
CPT/HCPCS: 99213

== ENCOUNTER → 2024-11-30 12:40 | Outpatient (BNVA) | payer MEDICARE, MEDICAID, SELFPAY | PROVIDERS: PCP Internal Medicine; Visit Provider Internal Medicine Gastroenterology | DX: R09.A2 Foreign body sensation, throat (principal) | CPT/HCPCS: 99212 ==

== ENCOUNTER 2024-12-22 10:39 | Outpatient (AMB) | payer MEDICARE, MEDICAID, SELFPAY ==
[2024-12-22 10:49] VITALS: BP 145/80; PULSE 76; RESP 14; TEMP 36.4; O2SAT 100; BMI 26.0
--- NOTE | 2024-12-22 10:49 | A.OFFPC_ITS ---
Vital Signs 12/22/24 10:49 Height 5 ft 7 in Weight 166 lb BMI 26.0 BP 145/80 H Respiration 14 Pulse 76 Pulse Source Pulse Oximeter Temp 97.6 F Temp Source Temporal Artery Scan Pulse Oximetry (%) 100 Oxygen Delivery Method Room Air Intake Visit Reasons: 3 month follow up Ditch Digger Required: No Accompanied by: Self / Same As Patient Allergies meperidine [Demerol] Allergy (Unknown, Verified 12/22/24 10:50) nausea From VISTARIL Allergy (Unknown, Uncoded 12/22/24 10:50) NAUSEA & VOMITING Wellbutrin Allergy (Unknown, Uncoded 12/22/24 10:50) nausea Tobacco use date assessed: 12/22/24 Dental Screening Dental Screen Date: 12/22/24 Did you have a dental visit in the last 12 months?: Yes Did you have a dental problem in the last 6 months where you did not have access to dental care?: No Was dental information given to patient?: Patient has dentist [facility] Medical History (Updated 12/22/24 @ 11:45 by Scot Buchanan MD) Irritable bowel syndrome Moses thyroiditis Hemorrhoids with complication Hypertension Depression Thyroid disease Surgical History History of colonoscopy with polypectomy (09/08/24) History of esophagogastroduodenoscopy (EGD) History of excision of tumor of brain meninges History of tonsillectomy Family History Mother Skin cancer Social History Housing: House Alcohol intake: never Patient Tobacco Use Status: Never used Tobacco service: No Current occupational status: employed 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 1. Little interest or pleasure in doing things: not at all 2. Feeling down, depressed, or hopeless: not at all 3. Trouble falling or staying asleep, or sleeping too much: not at all 4. Feeling tired or having little energy: not at all 5. Poor appetite or overeating: not at all 6. Feeling bad about yourself - or that you are a failure or have let yourself or your family down: not at all 7. Trouble concentrating on things, such as reading the newspaper or watching television: not at all 8. Moving or speaking so slowly that other people could have noticed. Or the opposite - being so fidgety or restless that you have been moving around a lot more than usual: not at all 9. Thoughts that you would be better off or of hurting yourself in some way: not at all Total score: 0 Source: Developed by Drs. Chris Hathaway, Janeth June, Lencho Soriano and colleagues, with an educational kelly from [employer] (P). Thrive Questionnaire Date Thrive assessed: 12/22/24 I am a: Patient What is your living situation today?: I have a steady place to live Within the past 12 months, did the food you bought not last and you didn't have the money to get more?: Never true Within the past 12 months, did you worry whether your food would run out before you got money to buy more?: Never true Do you have trouble paying for medicines?: No Do you have trouble getting transportation to medical appointments?: No Do you have trouble paying your heating and electricity bill?: No Do you have trouble taking care of your child, family member or friend?: No Do you have trouble with day-to-day activities such as bathing, preparing meals, shopping, managing finances, etc.?: No Are you currently unemployed and looking for a job?: No Are you interested in more education?: No Please select the resources that you would like help with: None THRIVE Score: 0 AUDIT C Alcohol Use Questionnaire (AUDIT-C) 1. How often do you have a drink containing alcohol?: Never 3. How often do you have six or more drinks on one occasion?: Never Total Score: 0 HOMER-7 AMB Questionnaire HOMER-7 Date HOMER - 7 assessed: 12/22/24 Feeling nervous, anxious, or on edge: 1 = Several days Not being able to stop or control worryin = More than half the days Worrying too much about different things: 2 = More than half the days Trouble relaxin = More than half the days Being so restless that it is hard to sit still: 1 = Several days Becoming easily annoyed or irritable: 1 = Several days Feeling afraid as if something awful might happen: 0 = Not at all Total HOMER-7 score (0-4 normal; 5-9 mild; 10-14 moderate; 15-21 severe): 9 Source: Developed by Drs. Chris Hathaway, Janeth June, Lencho Soriano and colleagues, with an educational kelly from [employer] (P). Physical exam (Primary Care) Vital Signs: Last Vital Signs Temp 97.6 F 12/22/24 10:49 Pulse 76 12/22/24 10:49 Resp 14 12/22/24 10:49 BP 145/80 H 12/22/24 10:49 Pulse Ox 100 12/22/24 10:49 Oxygen Delivery Method Room Air 12/22/24 10:49 BMI result Body Mass Index 26.0 Tobacco/Smoking Status: Tobacco use Status Tobacco use date assessed 12/22/24 12/22/24 10:57 Patient Tobacco Use Status Never used Tobacco 12/22/24 10:57 PHQ-9: PHQ-9 Score PHQ-9: Total score 0 12/22/24 10:57 Thrive Assessment: Date of Thrive Assessment Date Thrive assessed 12/22/24 12/22/24 10:57 Coding Level of Care Code Est Pt Level 4 (20807) Complex EM visit Add On G2211 Diagnoses Depression F32.A Moses thyroiditis E06.3 Irritable bowel syndrome K58.9 Assessment & Plan Assessment & Plan (1) Depression: Code(s): F32.A - Depression, unspecified Category: Medical Plan: Condition is stable. Sees a psychiatrist. All medications including Lorazepam and Ambien thru them. 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 She will follow up with the GI MD Plan History of Present Illness The patient is a 59-year-old female presenting with a follow-up for medication and symptom management. She has been on pantoprazole for Gastroesophageal Reflux Disease (GERD), effectively resolving her symptoms. Sucralfate was discontinued due to symptomatic improvement. The patient reports issues with constipation, which were exacerbated by Motegri, leading to the discontinuation of its use. Ongoing discussions with Dr. Carter are in place to explore further management options. She experiences persistent headaches and has arranged for a specialist evaluation scheduled for May. Despite these conditions, she functions adequately in daily activities, maintaining part-time employment and leisure activities. 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 She follows up with an director of parks and recreation for the management of her condition. Concerns regarding lipid levels have prompted a request for reevaluation of her cholesterol. She is advised to obtain fasting blood work to guide potential statin therapy. Social History - Employment: Part-time work for 9 hours. - Level of activity: Engages in gardening. - Functional status: Maintains daily activities despite headaches. Review of Systems - Gastrointestinal: Reports resolution of stomach burning; Reports constipation. - Neurological: Reports headaches. - Endocrine: Reports history of Moses's Thyroiditis. - General: Reports functional ability to perform daily activities. Physical Exam General: Cooperative and healthy appearing Nutritional Appearance: Well nourished Orientation/consciousness: Patient oriented x3 Limitations: No limitations Head: Normal to inspection General: Appearance normal, both eyes and all related structures Neck: Normal visual inspection Chest: Normal palpation of entire chest wall Respiratory: N ormal respiratory effort Neurology: Patient oriented x3, reports frequent headaches but is functional and able to work part-time. Results - Labs: Positive KARRIE; thyroid peroxidase antibodies for Moses's Thyroiditis discussed. Plan 1. Gastroesophageal Reflux Disease - Continue use of pantoprazole; monitor and adjust as needed. 2. Constipation - Discontinued Motegri; awaiting further management options with Dr. Carter. 3. Headaches - Monitoring and upcoming specialist consultation. 4. Moses's Thyroiditis - Ongoing endocrinology follow-up; routine thyroid function tests. 5. Hypercholesterolemia - Fasting blood work planned; discussion of statin therapy pending results. Discussion Notes I discussed with the patient her ongoing treatment for Gastroesophageal Reflux Disease with pantoprazole, which has currently resolved her symptoms. We reviewed her challenges with constipation and the discontinuation of Motegri, advising further discussions with Dr. Carter to pursue alternative management. I addressed her concerns regarding frequent headaches and confirmed her upcoming consultation with a specialist. The management of Moses's Thyroiditis was reviewed, noting continued endocrinology follow-up and stability on current treatment. I acknowledged her request for reevaluation of her cholesterol levels and the possibility of statin therapy, advising her to undergo fasting blood tests. We agreed on a follow-up in six months to review her progress and any adjustments needed in her treatment plan. Patient Instructions - Continue taking pantoprazole as directed. - Await further instructions from Dr. Carter regarding constipation management. - Keep track of headache occurrences and follow up with the specialist as scheduled. - Follow the director of parks and recreation's guidance for Moses's Thyroiditis management. - Undergo fasting blood work for cholesterol evaluation. - Return for follow-up in six months or sooner if symptoms worsen.
--- OUTSIDE RECORDS SUMMARY | 2024-12-22 12:15 | XMS_ITS | Clinical Summary ---
Author Organization [facility] Address [address] [place] [address] Care Team Providers Care Social Media Director Name Role Phone Chris Jamil DO Primary Care Provider [phone] Encounters Date Type Department Care Team Description 11/19/[address] [place] [address] Jessica Portillo MA Results (MRI 10/2023, [facility]) from Last 3 Months Social History Tobacco [...] age to complete this topic Care Teams Social Media Director Relationship Specialty Start Date End Date Chris Jamil DO [address] [place] [phone] PCP - General Internal Medicine 09/16/17
== END 2024-12-22 11:38 | disposition home or self-care (01) ==
LOC: HO.HMCSH 10:39
PROVIDERS: PCP Internal Medicine; Visit Provider Internal Medicine
DX: F32.A Depression, unspecified (principal); E06.3 Autoimmune thyroiditis; K58.9 Irritable bowel syndrome, unspecified

== ENCOUNTER → 2024-12-22 10:39 | Outpatient (BNVA) | payer MEDICARE, MEDICAID, SELFPAY | PROVIDERS: PCP Internal Medicine; Visit Provider Internal Medicine | DX: F32.A Depression, unspecified (principal); E06.3 Autoimmune thyroiditis; K58.9 Irritable bowel syndrome, unspecified | CPT/HCPCS: 99212 ==

== ENCOUNTER 2024-12-28 09:01 | Outpatient (REF) | payer MEDICARE, MEDICAID, SELFPAY ==
--- OUTSIDE RECORDS SUMMARY | 2024-12-28 09:07 | XMS_ITS | Clinical Summary ---
Author Organization [facility] Address [address] [place] [address] Care Team Providers Care Channel Executive Name Role Phone Chris Jamil DO Primary Care Provider [phone] Encounters Date Type Department Care Team Description 11/19/[address] [place] [address] Jessica Portillo MA Results (MRI [...] age to complete this topic Care Teams Channel Executive Relationship Specialty Start Date End Date Chris Jamil DO [address] [place] [phone] PCP - General Internal Medicine 09/16/17
[2024-12-28 10:55] LABS: Cholesterol 197 mg/dL (<200); HDL Cholesterol 84 mg/dL (>40); LDL Cholesterol Calculated 106 mg/dL (<100); Triglycerides 36 mg/dL (<150)
[2024-12-29 18:08] LABS: Thyroid Peroxidase Antibodies 510 IU/mL (<9)
[2024-12-30 13:39] LABS: Anti Nuclear Antibody Pattern Nuclear, Homogeneous; Anti Nuclear Antibody Screen POSITIVE (NEGATIVE)
== END 2024-12-28 09:02 | disposition home or self-care (01) ==
LOC: HO.HMGCLDS 09:01
PROVIDERS: PCP Internal Medicine; Visit Provider Internal Medicine
DX: E06.3 Autoimmune thyroiditis (principal)
CPT/HCPCS: 36415; 80061; 86038; 86039; 86376

== ENCOUNTER 2025-01-20 09:50 | Outpatient (REF) | payer MEDICARE, MEDICAID, SELFPAY ==
--- NOTE | ~2025-01-20 | US_ITS ---
EXAMINATION: US THYROID HISTORY: MULTINODULAR GOITER TECHNIQUE: Real-time grayscale ultrasound imaging was performed and images were reviewed. COMPARISON: Comparison is made with the prior examination dated 07/15/2024. FINDINGS: SIZE: The right thyroid lobe measures 5.0 x 2.6 x 2.5 cm. The left thyroid lobe measures 3.3 x 1.2 x 1.0 cm. The isthmus measures 6 mm. FLOW: Flow to the gland is increased. ECHOGENICITY: The echotexture of the gland is heterogeneous. NODULES: There is a 6 x 4 x 6 mm cyst at the upper pole of the right thyroid lobe. Additional solid nodules are identified as described below: Nodule #: 1 Location: Right isthmus measuring 2.2 x 0.8 x 1.8 cm (previously 2.2 x 0.9 x 1.3 cm). Shape: Wider than tall (0 points) Margins: Smooth (0 points) Echotexture: Isoechoic (1 point) Composition: Solid (2 points) Calcifications: None (0 points) Total points: 3 TIRADS: TR3: Mildly suspicious. Nodule #: 2 Location: Mid to lower pole of the right thyroid lobe measuring 3.5 x 2.4 x 3.3 cm (previously 3.4 x 2.3 x 2.3 cm). Shape: Wider than tall (0 points) Margins: Extrathyroidal extension (3 points) Echotexture: Isoechoic (1 point) Composition: Solid (2 points) Calcifications: None (0 points) Total points: 6 TIRADS: TR4: Moderately suspicious. US/US thyroid IMPRESSION: Right thyroid nodules as described. Nodule #2 above is moderately suspicious and according to ACR Ti RADS guidelines below, ultrasound-guided fine-needle aspiration is recommended if this has not already been performed. ACR TI-RADS Guidelines TR1 (0 points): Benign, No follow-up or biopsy required TR2 (2 points): Not Suspicious, No biopsy or follow up indicated TR3 (3 points): Mildly Suspicious, FNA if >= 2.5 cm, Follow if >= 1.5 cm TR4 (4-6 points): Moderately Suspicious, FNA if >= 1.5 cm, Follow if >= 1.0 cm TR5 (>=7 points): Highly Suspicious, FNA if >= 1.0 cm, Follow if >= 0.5 cm Electronically signed by: Chris Dickens MD 01/20/2025 01:51 PM EDT
--- OUTSIDE RECORDS SUMMARY | 2025-01-20 10:22 | XMS_ITS | Clinical Summary ---
Author Organization [facility] Address [address] [place] [address] Care Team Providers Care Assembly Mechanic Name Role Phone Chris Jamil DO Primary Care Provider [phone] Encounters Date Type Department Care Team Description 11/19/[address] [place] [address] Jessica Portillo MA Results (MRI [...] age to complete this topic Care Teams Assembly Mechanic Relationship Specialty Start Date End Date Chris Jamil DO [address] [place] [phone] PCP - General Internal Medicine 09/16/17
== END 2025-01-20 09:51 | disposition home or self-care (01) ==
LOC: HO.HMGCX 09:50
PROVIDERS: PCP Internal Medicine; Visit Provider Internal Medicine Endocrinology, Diabetes & Metabolism
DX: E04.2 Nontoxic multinodular goiter (principal)
CPT/HCPCS: 76536

== ENCOUNTER → 2025-01-20 09:51 | Outpatient (BNV) | payer MEDICARE, MEDICAID, SELFPAY | PROVIDERS: PCP Internal Medicine; Visit Provider Radiology Diagnostic Radiology | DX: E04.1 Nontoxic single thyroid nodule (principal) | CPT/HCPCS: 76536 ==

== ENCOUNTER → 2025-02-08 08:41 | Outpatient (BNVA) | payer MEDICARE, MEDICAID, SELFPAY | PROVIDERS: PCP Internal Medicine; Visit Provider Internal Medicine Gastroenterology | DX: Z13.89 Encounter for screening for other disorder (principal) ==

== ENCOUNTER 2025-04-07 10:03 | Outpatient (AMB) | payer MEDICARE, MEDICAID, SELFPAY ==
--- NOTE | 2025-04-07 10:05 | MHC.OFFVIS ---
Vital Signs 04/07/25 10:07 Height 5 ft 7 in Weight 162 lb BMI 25.4 BP 142/82 H Blood Pressure Location Lt brachial Position Sitting Respiration 16 Pulse 83 Pulse Source Pulse Oximeter Pulse Oximetry (%) 100 Oxygen Delivery Method Room Air Intake Visit Reasons: Neuralgic Head Pain Jewel Diameter Gauger Required: No Commercial Finance Analyst: Commercial Finance Analyst Present Accompanied by: Justin T Allergies meperidine (Demerol) Allergy (Unknown, Verified 04/07/25 10:08) nausea From VISTARIL Allergy (Unknown, Uncoded 04/07/25 10:08) NAUSEA & VOMITING Wellbutrin Allergy (Unknown, Uncoded 04/07/25 10:08) nausea Medication List - Last Reconciled 04/07/25 by Lisa Adhikari LPN gabapentin 300 mg PO .AM gabapentin 600 mg PO BID levothyroxine 100 mcg PO DAILY lorazepam mg PO meloxicam 15 mg PO DAILY pantoprazole 40 mg PO DAILY plecanatide (Trulance) 3 mg PO DAILY zolpidem (Ambien) 5 mg PO BEDTIME PRN HPI HPI Neuralgic Head Pain: Details: History of Present Illness The patient is a 59-year-old female presenting with trigeminal neuralgia and migraine. The trigeminal neuralgia began in 2021, characterized by stinging and burning pain radiating to the face, particularly affecting the oral and scalp areas on the right side. The pain intensity increases with work-related activities, reaching a severity of 10 out of 10. She is currently managing the condition with gabapentin at a dosage of 3.6 mg per day and meloxicam. The patient has a history of migraines since 2016, which were initially managed by her neurologist with unspecified treatments. She underwent a craniotomy in 2017 for meningioma removal, which she hoped would alleviate her symptoms, but the migraines persisted. The migraines are described as causing stinging and burning sensations, similar to the neuralgia, and occur frequently throughout the day. Pain Description - Onset: Pain began in 2021, post-craniotomy. - Quality: Stinging and burning sensation. - Location: Right side of the face, oral and scalp areas. - Radiation: Pain radiates to the face. - Exacerbating factors: Increases with work-related activities. - Frequency: Occurs many times a day. Physical Exam Results Pain Management - Affect: Pain impacts daily activities and work performance. - Analgesia: Currently using gabapentin 3.6 mg per day and meloxicam. - Adverse Effects: No specific adverse effects discussed. - Activities of Daily Living: Pain interferes with work and daily activities. - Aberrant Drug Related Behaviors: No aberrant behaviors reported. - Goal: To reduce pain intensity and improve daily functioning. Procedure - Informed consent was obtained for the procedure. Patient in sitting position. Chloraprep applied to cleanse skin. - A 27-inch needle was used for the procedure. - 1mL bupivacaine 0.5% injected at the supra-orbital nerve and auriculotemporal nerve - 0.5mL bupivacaine 0.5% injected in tender spots along the length of the scar. - No blood loss - Procedure tolerated well [facility] Medical History (Updated 03/23/25 @ 11:36 by Lisa Adhikari LPN) GERD (gastroesophageal reflux disease) Anxiety Chronic back pain Chronic neck pain Hypothyroidism Restless leg Headache Meningioma Irritable bowel syndrome Moses thyroiditis Hemorrhoids with complication Hypertension Depression Thyroid disease Surgical History History of colonoscopy with polypectomy (09/08/24) History of esophagogastroduodenoscopy (EGD) History of excision of tumor of brain meninges History of tonsillectomy Family History Mother Skin cancer Social History Housing: House Alcohol intake: never Patient Tobacco Use Status: Never used Tobacco service: No Current occupational status: employed 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 - If nerve block is ineffective, consider repeating with steroid along scar. - Continue current medication regimen with gabapentin and meloxicam. - Monitor for any adverse effects or changes in pain intensity. Patient was informed and verbally consented to the use of an ambient scribe for clinic note documentation during this visit. Discussion Notes I discussed with the patient the potential benefits and risks of a nerve block as an initial intervention for her pain management. If the nerve block does not provide sufficient relief, we considered the option of infiltration along the scar. We also reviewed her current medication regimen and the importance of monitoring for any adverse effects or changes in pain intensity. Patient Instructions - Continue taking gabapentin and meloxicam as prescribed. - Monitor for any changes in pain or side effects from medications. - Follow up if pain persists or worsens despite treatment. Coding Level of Care Code New Pt Level 4 (57350) Diagnoses Headache R51.9
[2025-04-07 10:07] VITALS: BP 142/82; PULSE 83; RESP 16; O2SAT 100; BMI 25.4
--- OUTSIDE RECORDS SUMMARY | 2025-04-07 11:09 | XMS_ITS | Clinical Summary ---
Author Organization [facility] it Address [address] [place] [address] Care Team Providers Care Enterostomal Nurse Name Role Phone Chris Jamil DO Primary Care Provider Social History Tobacco Use Types Packs/Day Years [...] 2) 2016 Colorectal Cancer Screening: Colonoscopy 07/21/2022 HIV Screening 07/21/2022 Hepatitis C Screening 07/21/2022 Social Influencers of Health Screening 07/21/2022 COVID-19 Vaccine (1 - 2023-2 5 season) 2024 Depression Screening 08/19/2024 Influenza Vaccine (#1) 2025 HIB Vaccines Aged Out No longer [...] age to complete this topic Care Teams Enterostomal Nurse Relationship Specialty Start Date End Date Chris Jamil DO [address] [place] [address] [phone] PCP - General Internal Medicine 09/16/17
--- OUTSIDE RECORDS SUMMARY | 2025-04-07 11:09 | XMS_ITS | Encounter Summary ---
Author Organization [facility] Address [address] [place] [address] Phone Care Team Providers Care Refinery Technician Name Role Phone Chris Jamil DO Primary Care Provider Pcp, Unknown Primary Care Provider Scot Newton MD Primary Care Provid er Encounter Details Date Type Department Care Team (Late Contact Info) Description 05/02/2018 Procedure Pass [facility] General Imaging [address] [place] [address] Social History Tobacco Use Types Packs/Day Years Used Date Smoking Tobacco: Never Smokeless Tobacco: Never Alcohol Use Standard Drinks/Week Comments Yes 0 (1 standard drink = 0.6 oz pur e alcohol) Comments Unknown Sex and Gender Information Value Date Recorded Sex Assigned at Female 11/09/2019 9:52 AM EDT Legal Sex Female 2:35 PM EDT Gender Identity Female 11/09/2019 9:52 AM EDT Sexual Orientation Straight 11/09/2019 9: 52 AM EDT documented as of this encounter Plan of Treatment Upcoming Encounters Date Type Department Care Team (Late st Contact Info) Description 06/10/2025 3:00 PM EDT Telemedicine [facility] Neurology [place] [address] [facility] [address] [place] [address] Bairon Zamorano MD [address] [place] [address], [place] [address] [email or web address] 06/17/2025 10:50 AM EDT Office [place] [address] [place] [address] [email or web address] documented as of this encounter Visit Diagnoses Not on filedocumented in this encounter Care Teams Refinery Technician Relationship Specialty Start Date End Date Chris Jamil DO [address] [place] [phone] PCP - General Internal Medicine 10/03/17 08/24/24 Pcp, Unknown PCP - General 08/25/24 02/28/25 Scot Buchanan MD [address] [place] [phone] PCP - General Internal Medicine 03/01/25 documented as of this encounter Additional Source Comments The information contained in this document represents components of the legal health record. It is not the complete legal health record.[facility]
== END 2025-04-07 10:49 | disposition home or self-care (01) ==
LOC: HO.PMC 10:04
PROVIDERS: PCP Internal Medicine; Referring Provider Internal Medicine; Visit Provider Internal Medicine
DX: G50.0 Trigeminal neuralgia (principal); R51.9 Headache, unspecified
CPT/HCPCS: 64400; 99204

== ENCOUNTER → 2025-04-07 10:03 | Outpatient (BNVA) | payer MEDICARE, MEDICAID, SELFPAY | PROVIDERS: PCP Internal Medicine; Referring Provider Internal Medicine; Visit Provider Internal Medicine | DX: G50.0 Trigeminal neuralgia (principal); G43.709 Chronic migraine without aura, not intractable, without status migrainosus; Z86.011 Personal history of benign neoplasm of the brain; Z98.890 Other specified postprocedural states | CPT/HCPCS: 64400; 99202; J0665 ==

== ENCOUNTER 2025-05-03 13:14 | Outpatient (AMB) | payer MEDICARE, MEDICAID, SELFPAY ==
--- OUTSIDE RECORDS SUMMARY | 2010-12-01 | XMS_ITS | Encounter Summary ---
Author Organization [facility] Address [address] [place] [phone] Phone Care Team Providers Care Break Out Worker Name Role Phone Unavailable Primary Care Provider Unavailabl e Reason for Visit * MRI/CAT Scan - Closed Specialty Diagnoses / Procedures Referred By Contcristóbal t Referred To Contact Procedures MRI Brain Outside (No Interpretation) Carol Akins MD, PhD [address] [place] [address] Phone: tel: fax: mailto:[email or web address] Referral ID Status Reason Start Date Expiration Date Visits Re quested Visits Authorized [id number] Closed 12/08/2018 12/08/2019 1 1 Encounter Details Date Type Department Care Team (Late st Contact Info) Description 12/01/2010 Hospital Encounter [facility] [address] [place] [address] Carol Akins MD, PhD [address] [place] [phone] [email or web address] Social History Tobacco Use Types Packs/Day Years Used Date Smoking Tobacco: Never Smokeless Tobacco: Never Alcohol Use Standard [...] 08/25/2024 11:33 AM Faye Kumari RN * [place] Suicide Severity Rating Scale (Screener/Recent Self-Report) Question Answer Date of Assessment Author 1. Wish to be (Past 1 Month) No 025 11:33 AM Faye Shetty, BAO 2. Non-Specific Active Suici dominick Thoughts (Past 1 Month) No 08/25/2024 11:33 AM Jayy Shetty RN 6. Suicidal Behavior (Lifetime) No 11:33 AM Faye Shetty, BAO documented as of this encounter Plan of Treatment Upcoming Encounters Date Type Department Care Team (Late st Contact Info) Description 06/10/2025 3:00 PM EDT Telemedicine [facility] [place] [address] [place] [address] Bairon Zamorano MD [address] [place] [address], [address] [place] [address] [email or web address] 06/17/2025 10:50 AM EDT Office Visit [facility] [address] [place] [address] Artemio Canales DO [address] [place] [address] [email or web address] documented as of this encounter Procedures Procedure Name Priority Date/Time Associated Diagnosis Comments MRI BRAIN OUTSIDE (NO INTERPRETATION) Routine 12/01/2010 12:00 AM EDT documented in this encounter Results * MRI Brain Outside (No Interpretation) (12/01/2010 12:00 AM EDT) Narrative [facility] [place] IMG INTERFACES - 12/08/2018 11:47 AM EDT This study is for PACS storage only and not for interpretation. us Carol Akins MD, PhD IMG OUTSIDE IMAGING W/ OUT INTERPRETATION Final Result [facility] [place] IMG INTERFACES documented in this encounter Visit Diagnoses Not on filedocumented in this encounter Additional Source Comments The information contained in this document represents components of the legal health record. It is not the complete legal health record.[facility]
--- NOTE | 2025-05-03 13:16 | A.OFFVIS_ITS ---
Vital Signs 05/03/25 13:17 Height 5 ft 7 in Weight 166 lb BMI 26.0 BP 124/84 Blood Pressure Location Lt brachial Position Sitting Respiration 16 Pulse 84 Pulse Source Pulse Oximeter Pulse Oximetry (%) 99 Oxygen Delivery Method Room Air Intake Visit Reasons: Increased Neuralgic Head Pain Since NB on 04/07/25 Equipment Hire Manager Required: No Allergies meperidine (Demerol) Allergy (Unknown, Verified 05/03/25 13:18) nausea From VISTARIL Allergy (Unknown, Uncoded 05/03/25 13:18) NAUSEA & VOMITING Wellbutrin Allergy (Unknown, Uncoded 05/03/25 13:18) nausea Medication List - Last Reconciled 05/03/25 by Lisa Adhikari LPN gabapentin 600 mg PO TID levothyroxine 100 mcg PO DAILY lorazepam mg PO meloxicam 15 mg PO DAILY pantoprazole 40 mg PO DAILY zolpidem (Ambien) 5 mg PO BEDTIME PRN HPI HPI Increased Neuralgic Head Pain Since NB on 04/07/25: Details: History of Present Illness The patient is a 59-year-old female presenting with post-craniofacial nerve block pain. She reports that the initial relief lasted for about three to four hours, after which the pain returned severely for about a week. The pain is primarily located along the surgical scar on her scalp. The patient has been managing the pain with gabapentin, which provides some relief, although she is concerned about the quantity she is taking. She also uses ice to alleviate severe pain episodes. She has not tried topical lidocaine or diclofenac gel but is open to trying these options. The patient is aware that ketamine-containing creams are available from compounding pharmacies, although they may not be covered by insurance. Pain Description - Onset: Pain returned severely about a week after initial relief from nerve blocks. - Quality: Neuropathic pain along the surgical scar. - Location: Primarily along the surgical scar on the scalp. - Exacerbating factors: Massaging the area worsens the pain. - Relieving factors: Gabapentin and ice application provide relief. Pain Management - Affect: The patient is concerned about the amount of gabapentin she is taking. - Analgesia: Currently using gabapentin and ice for pain relief. - Adverse Effects: No specific adverse effects from gabapentin mentioned. - Activities of Daily Living: Pain management with gabapentin and ice allows for some relief. - Aberrant Drug Related Behaviors: No aberrant behaviors reported. [facility] Medical History (Updated 03/23/25 @ 11:36 by Lisa Adhikari LPN) GERD (gastroesophageal reflux disease) Anxiety Chronic back pain Chronic neck pain Hypothyroidism Restless leg Headache Meningioma Irritable bowel syndrome Moses thyroiditis Hemorrhoids with complication Hypertension Depression Thyroid disease Surgical History (Updated 05/11/25 @ 09:00 by Ralph Mckinney MD) History of colonoscopy with polypectomy (09/08/24) History of esophagogastroduodenoscopy (EGD) History of excision of tumor of brain meninges History of tonsillectomy Family History Mother Skin cancer Social History Housing: House Alcohol intake: never Patient Tobacco Use Status: Never used Tobacco service: No Current occupational status: employed 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 Cognitive needs: No Hearing needs: No Vision needs: Yes (reading glasses) Physical Exam Vital Signs: Last Vital Signs Pulse 84 05/03/25 13:17 Resp 16 05/03/25 13:17 BP 124/84 05/03/25 13:17 Pulse Ox 99 05/03/25 13:17 Oxygen Delivery Method Room Air 05/03/25 13:17 BMI result Body Mass Index 26.0 Assessment & Plan Assessment & Plan (1) Status post craniotomy: Code(s): Z98.890 - Other specified postprocedural states Category: Surgical (2) Headache: Code(s): R51.9 - Headache, unspecified Category: Medical Plan Plan Patient was informed and verbally consented to the use of an ambient scribe for clinic note documentation during this visit. 1. Post-Craniofacial Nerve Block Pain - Consider topical lidocaine or diclofenac gel for pain relief. - Explore ketamine-containing creams from compounding pharmacies if other treatments are ineffective. - Avoid frequent cortisone injections due to potential skin thinning. Discussion Notes I discussed with the patient the use of topical treatments such as lidocaine and diclofenac gel for managing her pain. We also considered the potential use of ketamine-containing creams from compounding pharmacies, noting that these may n ot be covered by insurance. I advised against frequent cortisone injections due to the risk of skin thinning. Patient Instructions - Try using topical lidocaine or diclofenac gel for pain relief. - Consider ketamine-containing creams if other treatments do not work, but be aware of potential costs. - Avoid frequent cortisone injections to prevent skin thinning. - Contact the clinic if pain management strategies are ineffective. Medications: New lidocaine 4% (AsperFlex (lidocaine)) 1 appl topical BID 30 grams 0RF Coding Level of Care Code Est Pt Level 3 (02217) Diagnoses Status post craniotomy Z98.890 Headache R51.9
[2025-05-03 13:17] VITALS: BP 124/84; PULSE 84; RESP 16; O2SAT 99; BMI 26.0
--- OUTSIDE RECORDS SUMMARY | 2025-05-03 18:22 | XMS_ITS | Encounter Summary ---
Author Organization [facility] Address [address] [place] [address] Phone Care Team Providers Care Battery Filler Name Role Phone Chris Jamil DO Primary Care Provider [phone] Pcp, Unknown Primary Care Provider Scot Newton MD Primary Care Provid er Encounter Details Date Type Department Care Team (Late st Contact Info) Description 12/09/2018 Procedure Pass [facility] - MRI [address], 6th [place] [address] Social History Tobacco Use Types Packs/Day Years [...] Info) Description 06/10/2025 3:00 PM EDT Telemedicine [facility] Neurology at [place] [address] [facility] [address] [place] [address] Bairon Zamorano MD [address] [facility] [place] [address] [email or web address] 06/17/2025 10:50 AM EDT Office [place] [address] [place] [address] [email or web address] documented as of this encounter Visit Diagnoses Not on filedocumented in this encounter Care Teams Battery Filler Relationship Specialty Start Date End Date Chris Jamil DO [address] [place] [phone] PCP - General Internal Medicine 10/03/17 08/24/24 Pcp, Unknown PCP - General 08/25/24 02/28/25 Scot Buchanan MD [address] [place] [address] PCP - General Internal Medicine 03/01/25 documented as of this encounter Additional Source Comments The information contained in this document represents components of the legal health record. It is not the complete legal health record.[facility]
--- OUTSIDE RECORDS SUMMARY | 2025-05-03 18:22 | XMS_ITS | Encounter Summary ---
Author Organization [facility] Address [address] [place] [address] Phone Care Team Providers Care Municipal Engineer Name Role Phone Chris Jamil DO Primary Care Provider Pcp, Unknown Primary Care Provider Scot Newton MD Primary Care Provid er Encounter Details Date Type Department Care Team (Late Contact Info) Description 05/02/2018 Procedure Pass [facility] General Imaging [address] [place] [address] Social History Tobacco Use Types Packs/Day Years [...] Info) Description 06/10/2025 3:[address] [facility] Neurology at [place] [address] [facility] [address] [place] [address] Bairon Zamorano MD [address] [place] [address], Suite [place] [address] [email or web address] 06/17/2025 10:50 AM EDT Office Visit [facility] [address] [place] [address] [email or web address] documented as of this encounter Visit Diagnoses Not on filedocumented in this encounter Care Teams Municipal Engineer Relationship Specialty Start Date End Date Chris Jamil DO [address] [place] [address] PCP - General Internal Medicine 10/03/17 08/24/24 Pcp, Unknown PCP - General 08/25/24 02/28/25 Scot Buchanan MD [address] [place] [address] PCP - General Internal Medicine 03/01/25 documented as of this encounter Additional Source Comments The information contained in this document represents components of the legal health record. It is not the complete legal health record.[facility]
--- OUTSIDE RECORDS SUMMARY | 2025-05-03 18:23 | XMS_ITS | Encounter Summary ---
Author Organization [facility] Address [address] [place] [address] Phone Care Team Providers Care Machine Folder Name Role Phone Chris Jamil DO Primary Care Provider Pcp, Unknown Primary Care Provider Scot Newton MD Primary Care Provid er Encounter Details Date Type Department Care Team (Late st Contact Info) Description 01/01/2018 Procedure Pass [facility], [place] [address] [facility] 2nd [place] [address] Social History Tobacco Use Types Packs/Day Years [...] Info) Description 06/10/2025 3:00 PM EDT Telemedicine [facility] Neurology at [place] [address] [place] [address] Bairon Zamorano MD [address] [facility] [place], [address] [place] [address] [email or web address] 06/17/2025 10:50 AM EDT Office [place] [address] [place] [address] [email or web address] documented as of this encounter Visit Diagnoses Not on filedocumented in this encounter Care Teams Machine Folder Relationship Specialty Start Date End Date Chris Jamil DO [address] [place] [phone] PCP - General Internal Medicine 10/03/17 08/24/24 Pcp, Unknown PCP - General 08/25/24 02/28/25 Scot Buchanan MD [address] [place] [phone] PCP - General Internal Medicine 03/01/25 documented as of this encounter Additional Source Comments The information contained in this document represents components of the legal health record. It is not the complete legal health record.[facility]
--- OUTSIDE RECORDS SUMMARY | 2025-05-03 18:23 | XMS_ITS | Encounter Summary ---
Author Organization [facility] Address [address] [place] [address] Phone Care Team Providers Care Php Lamp Developer Name Role Phone Chris Jamil DO Primary Care Provider Pcp, Unknown Primary Care Provider Scot Newton MD Primary Care Provid er Encounter Details Date Type Department Care Team (Late st Contact Info) Description 12/08/2018 Procedure Pass [facility] General Imaging [address] [place] [address] Social History Tobacco Use Types Packs/Day Years [...] Info) Description 06/10/2025 3:00 PM EDT Telemedicine [facility] Neurology at [place] [address] [facility] [address] [place] [address] Bairon Zamorano MD [address] [place] [address], [place] [address] [email or web address] 06/17/2025 10:50 AM EDT Office [place] [address] [place] [address] [email or web address] documented as of this encounter Visit Diagnoses Not on filedocumented in this encounter Care Teams Php Lamp Developer Relationship Specialty Start Date End Date Chris Jamil DO [address] [place] [address] PCP - General Internal Medicine 10/03/17 08/24/24 Pcp, Unknown PCP - General 08/25/24 02/28/25 Scot Buchanan MD [address] [place] [address] PCP - General Internal Medicine 03/01/25 documented as of this encounter Additional Source Comments The information contained in this document represents components of the legal health record. It is not the complete legal health record.[facility]
--- OUTSIDE RECORDS SUMMARY | 2025-05-03 18:23 | XMS_ITS | Encounter Summary ---
Author Organization [facility] Address [address] [place] [address] Phone Care Team Providers Care Service Line Bus Cleaner Name Role Phone Scot Buchanan MD Primary Care Provid er Encounter Details Date Type Department Care Team (Late st Contact Info) Description 03/09/2025 Procedure Pass [facility] [address] [place] [address] Social History Tobacco Use Types Packs/Day Years [...] Info) Description 06/10/2025 3:00 PM EDT Telemedicine [facility] Neurology at [place] [address] [place] [address] Bairon Zamorano MD [address] [facility], [address] [place] [address] [email or web address] 06/17/2025 10:50 AM EDT Office Visit [facility] [address] [place] [address] Artemio Canales DO 22 [place] [address] documented as of this encounter Visit Diagnoses Not on filedocumented in this encounter Care Teams Service Line Bus Cleaner Relationship Specialty Start Date End Date Scot Buchanan MD [address] [place] [phone] PCP - General Internal Medicine 03/01/25 documented as of this encounter Additional Source Comments The information contained in this document represents components of the legal health record. It is not the complete legal health record.[facility]
--- OUTSIDE RECORDS SUMMARY | 2025-05-03 18:23 | XMS_ITS | Encounter Summary ---
Author Organization [facility] Address [address] [place] [address] Phone Care Team Providers Care Field Radio Technician Name Role Phone Chris Jamil DO Primary Care Provider [phone] Pcp, Unknown Primary Care Provider Scot Newton MD Primary Care Provid er Encounter Details Date Type Department Care Team (Late st Contact Info) Description 11/15/2017 Procedure Pass [facility] General Imaging [address] [place] [address] Social History Tobacco Use Types Packs/Day Years [...] Info) Description 06/10/2025 3:00 PM EDT Telemedicine [facility] Neurology at [place] [address] [place] [address] Bairon Zamorano MD [facility] [facility], Suite Headache [place] [address] [email or web address] 06/17/2025 10:50 AM EDT Office Visit [facility] [address] [place] [address] Artemio Canales DO [address] [place] [address] [email or web address] documented as of this encounter Visit Diagnoses Not on filedocumented in this encounter Care Teams Field Radio Technician Relationship Specialty Start Date End Date Chris Jamil DO [address] [place] [address] PCP - General Internal Medicine 10/03/17 08/24/24 Pcp, Unknown PCP - General 08/25/24 02/28/25 Scot Buchanan MD [address] [place] [address] PCP - General Internal Medicine 03/01/25 documented as of this encounter Additional Source Comments The information contained in this document represents components of the legal health record. It is not the complete legal health record.[facility]
--- OUTSIDE RECORDS SUMMARY | 2025-05-03 18:23 | XMS_ITS | Encounter Summary ---
Author Organization [facility] Address [address] [place] [address] Phone Care Team Providers Care Miniature Train Driver Name Role Phone Chris Jamil DO Primary Care Provider [phone] Pcp, Unknown Primary Care Provider Scot Newton MD Primary Care Provid er Encounter Details Date Type Department Care Team (Late st Contact Info) Description 07/03/2018 Procedure Pass [facility] - MRI [address] [place] [address] Social History Tobacco Use Types Packs/Day Years [...] Info) Description 06/10/2025 3:00 PM EDT Telemedicine [facility] [address] [place] [address] Bairon Zamorano MD [address] [place] [address] [email or web address] 06/17/2025 10:50 AM EDT Office Visit [facility] [address] [place] [address] [email or web address] documented as of this encounter Visit Diagnoses Not on filedocumented in this encounter Care Teams Miniature Train Driver Relationship Specialty Start Date End Date Chris Jamil DO [address] [place] [address] PCP - General Internal Medicine 10/03/17 08/24/24 Pcp, Unknown PCP - General 08/25/24 02/28/25 Scot Buchanan MD [address] [place] [id number] PCP - General Internal Medicine 03/01/25 documented as of this encounter Additional Source Comments The information contained in this document represents components of the legal health record. It is not the complete legal health record.[facility]
--- OUTSIDE RECORDS SUMMARY | 2025-05-03 18:23 | XMS_ITS | Encounter Summary ---
Author Organization [facility] Address [address] [place] [phone] Phone Care Team Providers Care Suction Worker Name Role Phone Chris Jamil DO Primary Care Provider [phone] Pcp, Unknown Primary Care Provider Scot Newton MD Primary Care Provid er Reason for Referral * Consultation (Elective) - Closed Specialty Diagnoses / Procedures Referred By Ginette watson Referred To Contact Neurology Diagnoses Multiple sclerosis Chris Jamil DO [address] [place] [address] Phone: tel: fax: [address] [phone] Phone: tel: Referral ID Status Reason Start Date Expiration Date Visits Re quested Visits Authorized [id number] Closed 10/17/2017 10/17/2018 1 1 Scheduling Instructions Self referral 2nd opinion request for MS clinic Encounter Details Date Type Department Care Team (Latest Contact Info) Description 10/17/2017 Transcribe Orders [facility] Department of Neurology [address] [place] [address], 8[address] Floor, [address] [place] [address] Chris Jamil DO [address] [place] [address] Multiple sclerosis (Primary Dx) Social History Tobacco Use Types Packs/Day Years [...] Info) Description 06/10/2025 3:00 PM EDT Telemedicine [facility] [place] [address] [place] [address] Bairon Zamorano MD [address] [facility], [address] [place] [address] [email or web address] 06/17/2025 10:50 AM EDT Office Visit [facility] [address] [place] [address] Artemio Canales DO [address] [place] [address] [email or web address] Scheduled Referrals Name Type Priority Associated Diagnoses Order Schedule Ambulatory referral to [facility] Neurology Outpatient Referral Routine Multiple sclerosis Ordered: 10/17/2017 documented as of this encounter Visit Diagnoses Diagnosis Multiple sclerosis- Primary documented in this encounter Care Teams Suction Worker Relationship Specialty Start Date End Date Chris Jamil DO [address] [place] [id number] PCP - General Internal Medicine 10/03/17 08/24/24 Pcp, Unknown PCP - General 08/25/24 02/28/25 Scot Buchanan MD [address] [place] [address] [address] PCP - General Internal Medicine 03/01/25 documented as of this encounter Additional Source Comments The information contained in this document represents components of the legal health record. It is not the complete legal health record.[facility]
--- OUTSIDE RECORDS SUMMARY | 2025-05-03 18:23 | XMS_ITS | Clinical Summary ---
Author Organization [facility] Address [address] [place] [address] Phone Care Team Providers Care Painting Instructor Name Role Phone Scot Buchanan MD Primary Care Provid er Allergies Active Allergy Reactions Criticality Noted Date Comments Meperidine Nausea and/or Vomiting 11/15/2017 Medications zolpidem (AMBIEN) 10 mg tablet Take 10 mg by mouth daily. Active pantoprazole (PROTONIX) 40 MG tablet Take 40 mg by mouth daily. Active cholecalciferol (VITAMIN D3) 2,000 unit capsule Take 2,000 Units by mouth daily. Active gabapentin (NEURONTIN) 300 MG capsule Take 300 mg by mouth 3 (three) times a day. Active cyclobenzaprine (FLEXERIL) 10 MG tablet Take 10 mg by mouth nightly at bedtime. Active LORazepam (ATIVAN) 0.5 MG tablet Take 0.5 mg by mouth. 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 90 tablet 3 03/02/2025 Active Active Problems Problem Noted Date Diagnosed Date Nontoxic multinodular goiter 07/30/2024 Assessment & Plan (03/01/2025 10:57 AM EDT): The isthmus nodule grew by 25% but it is not significant has been biopsied twice and both times found to be benign. The right mid lower pole nodule also has been biopsied twice before and found to be benign but it has grown by 54%. Is a TI-RADS 4 nodule and in the description is states extrathyroidal extension which is concerning to me. So I am referring her for repeat biopsy. This will be done at [facility] radiology at [address] I informed the patient that the radiology department will call her. Assessment & Plan (07/30/2024 4:36 PM EST): She has a nontoxic multinodular goiter with benign thyroid nodules which have been biopsied twice. However the right mid inferior nodule did grow significantly at least by 37.8 %/year. So at this point we do have to repeat the ultrasound in a year after the last which was 01/21/2024. So I recommend repeating the ultrasound on 01/20/2025 at [facility]. If there is significant growth of this nodule which would be 30% or more per year then it will require repeat biopsy. If the nodule is stable in size then we will repeat the ultrasound 2 years later. 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 If this is the case maybe she does not require the current dose of levothyroxine which is 100 mcg. TSH at [facility] was 0.6 and this is on the low side of normal. But I do not have a free T4. I asked her to get TSH and free T4 today. Based on that we can see if she should continue on levothyroxine 100 mcg or a lower dose. She is going to return in 3 months and I requested repeat thyroid function studies prior to the follow-up visit in 3 months as well. Addendum: Thyroid functions in the reference range will continue levothyroxine 100 mcg. Assessment & Plan (07/30/2024 4:34 PM EST): The patient is chemically and clinically euthyroid with levothyroxine 100 mcg. She should continue current medications no changes required. I will renew the current medication she should repeat thyroid function studies prior to the follow-up visit. White matter abnormality on MRI of brain 018 Assessment & Plan (12/27/2021 4:09 PM EDT): Assessment This is a 56 year old woman who was incidentally found to have white matter changes on her Brain MRI, but with no history of MS-typical relapse symptoms. We have been following surveillance MRIs that have not shown the development of new lesions concerning for MS. Her Neurosurgeon has agreed to extend the interval for next Brain MRI to 2 years. She has a white matter lesion in the cerebellum that is slightly expansile and the differential includes hamartoma or low-grade glioma along with demyelination. Fortunately, this has been stable since at least 2010. She continues with intermittent brief episodes of diplopia, although these have become less frequent over the years. Dr. Jimenez saw her in 2018 and raised the possibility of ocular neuromyotonia, although she has no clear trigger for this. Fortunately, this appears to be benign since it has been stable to improved. Her most bothersome symptom is her foot pain. An outside EMG/NCS raised c/for bilateral tibial neuropathy when done in 2017. This would be very unusual, and she denies any type of trauma. I would question if this finding could be due to technical factors in the study and not a true finding. I suggested that she follow up with podiatry. If that is unrevealing we can consider repeating a EMG/NCS. Plan 1. Repeat Brain MRI at 2 year interval. 2. Continue Vitamin D. 3. RTC 1 year. Assessment & Plan (12/07/2020 9:28 PM EDT): Assessment This is a 55 year old woman who was incidentally found to have white matter changes on her Brain MRI. At this time she does not have symptoms that we would consider characteristic of multiple sclerosis relapse. In addition, she has no spinal cord lesions and negative CSF for oligoclonal bands. She has elected to continue with interval surveillance MRIs. She does have a white matter lesion in the cerebellar peduncle that is slightly expansile and the differential includes hamartoma or low-grade glioma along with demyelination. Fortunately, this has been stable to possibly mildly increased in size since at least 2010. We will repeat a Brain MRI in 2 years given the stability over the last 3 years. Plan 1. Repeat Brain MRI at 2 year interval. 2. Continue Vitamin D 2000 units daily. 3. RTC 1 year. Assessment & Plan (11/02/2019 10:17 PM EDT): Assessment This is a 53 year old woman who was incidentally found to have white matter changes on her Brain MRI. At this time she does not have symptoms that we would consider characteristic of multiple sclerosis relapse. In addition, she has no spinal cord lesions and negative CSF for oligoclonal bands. She has elected to continue with close interval surveillance MRIs. She does have a white matter lesion in the cerebellar peduncle that is slightly expansile and the differential includes hamartoma or low-grade glioma along with demyelination. Fortunately, this has been stable since at least 2010. We will repeat a Brain MRI in 1 year, and if stable stretch out the interval to every 2 years. The stereotyped episodes of right eye blurry vision and pulling sensation are of unclear etiology. She was evaluated in 01/2018 by Neuro-ophthalmology with no clear etiology identified. They are rare and brief in duration, so we will continue to monitor. Plan 1. Repeat Brain MRI at 1 year interval. 2. Continue Vitamin D 2000 units daily. 3. RTC 1 year. Assessment & Plan (11/04/2018 9:55 AM EDT): Assessment This is a 52 year old woman who was incidentally found to have white matter changes on her Brain MRI. At this time she does not have symptoms that we would consider characteristic of multiple sclerosis relapse. In addition, she has no spinal cord lesions and negative CSF for oligoclonal bands. She has elected to continue with close interval surveillance MRIs. She does have a white matter lesion in the cerebellar peduncle that is slightly expansile. This is less likely demyelinating, and may be a hamartoma or low-grade glioma. This is stable and we will continue to monitor this on interval MRIs. She will try to obtain her MRI disc from 2010 to assess whether it was there at that time. With regards to her headaches, she is now following closely with the headache clinic and just underwent Botox injections. Plan 1. Repeat Brain MRI at 6 month or 1 year interval. Will decide after I review her scan from 2010. 2. Continue Vitamin D 2000 units daily. 3. I recommended that she schedule a follow-up with Neuro-ophthalmology. 4. RTC 1 year. Assessment & Plan (02/17/2018 10:55 AM EDT): Assessment This is a 52 year old woman who was incidentally found to have white matter changes on her Brain MRI during a work up of paroxysmal episodes of right eye pain and visual distortion. Her symptoms have not improved after resection of an enlarging left frontal meningioma. While abnormal eye movements could be caused by her lesion in the cerebellar peduncle, the discreet episodes of diplopia with adduction of the right eye would be very unusual and atypical of relapse symptoms. At this time she does not have symptoms that we would consider characteristic of multiple sclerosis relapse. In addition, she has no spinal cord lesions and negative CSF for oligoclonal bands. 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 We discussed that the treatment of RIS is controversial. While some patients may benefit from disease modifying treatment to delay/prevent the progression to multiple sclerosis, many patients with RIS will never develop clinically definite MS. At this time she would prefer to defer starting DMT, and instead continue with close interval surveillance MRIs. With regards to her headaches, and mouth burning pain, she has not benefited from Gabapentin, but the dose is likely too low to offer efficacy. We will try to optimize the dose of Gabapentin as tolerated by side effects. If it is not beneficial, we will consider alternate treatment such as Lyrica. Plan 1. Repeat Brain MRI at 6 month interval (July 2018). 2. Increase Gabapentin to 600 mg three times daily (I instructed her to increase her total daily dose by 300 mg every few days as tolerated by side effects, until she reaches the goal dose). 3. Provided prescription for physical therapy. 4. Start Vitamin D 2000 units daily. 5. Follow up with Neuro-ophthalmology as planned. 6. RTC 3 months. Assessment & Plan (11/19/2017 1:38 PM EDT): Assessment This is a 51 year old woman who was incidentally found to have white matter changes on her Brain MRI during a work up of paroxysmal episodes of right eye pain and visual distortion. While she does have additional neurological symptoms, with sensory symptoms on the right face, right upper extremity and bilateral feet, she has not had symptoms that we would consider characteristic of a multiple sclerosis relapse. Her symptoms, in particular her visual symptoms, may be related to her enlarging meningioma. She has T2 hyperintense white matter lesions in the Brain in a non-specific pattern. There was one small punctate area of enhancement that is of unclear significance. It is possible that these lesions are demyelinating, but there is not convincing evidence for this at this time. I recommended further evaluation with MRI cervical and thoracic spine. She should have a repeat Brain MRI at a 6 month interval, or sooner if necessary for follow up of her meningioma resection, to assess for new lesions consistent with demyelination. Plan 1. Repeat Brain MRI at 6 month interval. She will notify me if her neurosurgeon recommends a sooner scan so that I can request MS protocol sequences. 2. Obtain MRI cervical and thoracic spine. 3. She will forward me prior laboratory work-up. 4. Neuro-ophthalmology evaluation requested. 5. RTC 3 months. Restless leg syndrome 11/15/2017 Neck pain 11/15/2017 Meningioma 11/15/2017 Encounters Date Type Department Care Team Description 03/12/2025 Telephone [facility] [address] [place] [address] Ester Galvez RN Results (Thyroid biopsy) 03/09/2025 2:00 PM EDT - 03/09/2025 2:56 PM EDT Surgery [facility] Cardiovascular And Interventional Radiology [address] [place] [address] Damaris Escobar PA-C Ultrasound Guided Fine Needle Aspiration 03/09/2025 1:15 PM EDT - 03/09/2025 2:29 PM EDT Hospital Encounter [facility] Cardiovascular And Interventional Radiology [address] [place] [address] Corey Schmidt MD Discharge Disposition: Home or Self Care 03/09/2025 Procedure Pass [facility] Cardiovascular And Interventional Radiology [address] [place] [address] 03/04/2025 Ancillary Orders [facility],Outside Imaging [address] [place] [address] Unknown, Unknown, 03/01/2025 11:08 AM EDT - 03/01/2025 11:59 PM EDT Hospital Encounter [place] [address] Artemio Canales DO Discharge Disposition: Home or Self Care 03/01/2025 10:30 AM EDT Office Visit [facility] [address] [place] [address] Artemio Canales DO Nontoxic multinodular goiter (Primary Dx); 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 from Last 3 Months Family History Medical History Relation Comments Mesothelioma Father Dementia Mother Glaucoma Mother Relation Status Comments Father Mother Social History Tobacco Use Types Packs/Day Years [...] Orientation Straight 11/09/2019 9: 52 AM EDT Last Filed Vital Signs Vital Sign Reading Time Taken Comments Blood Pressure 112/72 03/01/2025 10:16 AM EDT Pulse 86 03/01/2025 10:16 AM EDT Temperature 36.4 C (97.6 F) 03/01/2025 10:16 AM EDT Respiratory Rate 16 08/25/2024 11:33 AM EST Oxygen Saturation 97% 03/01/2025 10:16 AM EDT Inhaled Oxygen Concentration - - Weight 72.7 kg (160 lb 3.2 oz) 03/01/2025 10:16 AM EDT Height 169.3 cm (5' 6.65 ) 03/01/2025 10:16 AM E DT Body Mass Index 25.35 03/01/2025 10:16 AM EDT Plan of Treatment Upcoming Encounters Date Type Department Care Team (Late st Contact Info) Description 06/10/2025 3:00 PM EDT Telemedicine [facility] Neurology at [place] [address] [place] [address] Bairon Zamorano MD [address] [facility] [facility] [place] [address] [email or web address] 06/17/2025 10:50 AM EDT Office Visit [facility] [address] [place] [address] Artemio Canales DO [address] [place] [address] Health Maintenance Due Date Last Done Comments Adult Td,Tdap Booster 1965 DEPRESSION SCREENING 1978 HEPATITIS C SCREENING 1984 HIV ONE-TIME SCREENING (18-65 YEARS) 1984 PAP SMEAR 11/28/1987 MAMMOGRAM 2006 COLONOSCOPY 11/28/2011 FIT TEST 11/28/2011 FOBT 11/28/2011 SIGMOIDOSCOPY 11/28/2011 VIRTUAL COLONOSCOPY 11/28/2011 PNEUMOCOCCAL VACCINES (50+ years) (1 of 1 - PCV) 2016 ZOSTER VACCINES (1 of 2) 2016 INFLUENZA VACCINE (#1) 2025 1, 06/28/2020, 05/25/2019, Additional history exists COVID-19 VACCINE (2 - season) 2025 12/12/2020 LIPID PANEL 12/20/2025 12/20/2020 COLOGUARD 02/07/2026 02/07/2023 COLORECTAL CANCER SCREENING 02/07/2026 TSH LEVEL 03/01/2026 03/01/2025, 06/20, 01/17/2024 SCREENING FOR DIABETES 08/25/2027 08/25/2024 SMOKING STATUS SCREENING (Once After 26 Yrs) Completed 07/30/2024 HEPATITIS A VACCINES Aged Out No long er eligible based on patient's age to complete this topic HIB VACCINES Aged Out No longer eligi ble based on patient's age to complete this topic MENINGOCOCCAL VACCINES (ACWY) Aged Out No longer eligible based on patient's age to complete this topic MENINGOCOCCAL VACCINES (B) Aged Out N o longer eligible based on patient's age to complete this topic Medical Devices Not on file Procedures Procedure Name Priority Date/Time Associated Diagnosis Comments OUTSIDE LAB 03/26/2025 ULTRASOUND GUIDED FINE NEEDLE ASPIRATION (IR) Routine 03/09/2025 2:14 PM EDT Nontoxic multinodular goiter NON-SUBSTANCE ADDICTION COORDINATOR CYTOLOGY, NON CSF, NON URINE Routine 03/09/2025 12:00 AM EDT TSH Routine 03/01/2025 11:11 AM EDT 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 Initial results showed follicular lesion of indeterminate significance but ThyroSeq testing has now returned negative indicating low likelihood of malignancy. Clinical/imaging follow-up recommended. Impression: US guided FNA of right thyroid nodule(s). Cytology pending. History: Patient is a 59 year old female with right thyroid nodule who presents for US guided FNA. Of note, patient has had two prior benign FNAs of this nodule, but referrer requests repeat sampling due to growth. Graining Press Operator: Damaris Escobar PA-C Description of Procedure & Findings: Written and oral informed consent was obtained from the patient (or outside sales representative insurance) after explaining potential risks and benefits of the procedure as well as alternatives and the right to refuse. Pre-procedure ultrasound of the thyroid gland was performed and compared to prior US thyroid confirming thyroid nodule(s) for target. All elements of maximum sterile barrier were used including mask, cap, sterile gown, gloves, drapes, hand hygiene, cutaneous antisepsis with 2% chlorhexadine and sterile preparation of the ultrasound probe. The skin and subcutaneous tissues were anesthetized with buffered 1% lidocaine. Under ultrasound guidance, a 25 gauge needle was placed in the nodule located in the right mid pole of the thyroid gland. 3 aspirate specimens were obtained. Specimens were reviewed by on-site cytology revealing adequate sample. Specimens were submitted for cytologic review. There were no immediate complications. Images were saved in the patient's electronic medical record. The patient tolerated the procedure well and left the radiology department in stable condition. Dr. Corey Schmidt was the attending interventional radiologist for this encounter. Artemio Canales DO [facility] Edited Result - Final * Non-Planning Technician Cytology (03/09/2025 12:00 AM EDT) 03/09/2025 03/09/2025 2: 23 PM EDT Narrative SEE NARRATIVE - 03/23/2025 1:09 PM EDT [address] [address] Lance Crewmember/Mlrs Sergeant: Rodger Coker MD Non Planning Technician Cytology Report FINAL DIAGNOSIS A. RIGHT THYROID NODULE, ULTRASOUND GUIDED FINE NEEDLE ASPIRATION: SPECIMEN ADEQUACY: Satisfactory for evaluation. 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 Note: Because of the abundant colloid and the presence of flat sheets of follicular cells a benign diagnosis is favored, however, there are focal oncocytic cells with nuclear atypia, and therefore molecular studies are pending. Electronically Signed Out By: MD Briana Palafox CT([facility]) By his/her signature above, the pathologist listed as making the Final Diagnosis certifies that he/she has personally reviewed this case and confirmed or corrected the diagnosis. PROCEDURES/ADDENDA Rapid Interpretation Ordered Date: 03/09/2025 A. RIGHT THYROID NODULE, ULTRASOUND GUIDED FINE NEEDLE ASPIRATION: Specimen Adequacy Evaluation Pass 1: Follicular cells present. Remainder to Cytolyt. Pass 2: Follicular cells present. Remainder to Cytolyt. Pass 3: Follicular cells present. Remainder to Thyroseq. ADDENDUM Ordered Date: 03/23/2025 SEE SEPARATE THYROSEQ REPORT (CASE #[id number]) THYROSEQ V3 GC RESULTS SUMMARY RIGHT THYROID, 3.5 CM NODULE, FNA Test Result: NEGATIVE Probability of Cancer or NIFTP: Low (~3%) Potential Management: Observation [place]FORMED [place] [facility] [address] CLINICAL HISTORY Patient presents with nontoxic multinodular goiter. SPECIMEN SOURCE A: RIGHT THYROID NODULE, ULTRASOUND GUIDED FINE NEEDLE ASPIRATION GROSS DESCRIPTION A. RIGHT THYROID NODULE, ULTRASOUND GUIDED FINE NEEDLE ASPIRATION: Received are six (6) direct smears in 95% alcohol and a needle rinse in 30ml CytoLyt preservative labeled with patient name and date of . One (1) ThinPrep slide is prepared. A portion of the specimen was submitted to ThyroSeq media. Patient Name: ROSALINDA RASMUSSEN : 1965 (Age: 59) Sex: F Institution: [facility] Location: [facility] Date of Collection: 03/09/2025 Date of Reported: 03/11/2025 10:14 Results to: Damaris Canales DO us Damaris Escobar PA-Briana CYTOLOGY ORDERABLES Edite d Result - Final SEE NARRATIVE * TSH (03/01/2025 11:11 AM EDT) TSH 1.33 0.27 - 4.20 uIU/mL [facility] Blood 03/01/2025 11:1 1 AM EDT 03/01/2025 11:15 AM EDT us Artemio Canales DO LAB BLOOD ORDERABLES Final Resul t Performing Organization Address City/[facility]/ZIP Co de Phone Number [address] [address] * Free T4 (03/01/2025 11:11 AM EDT) FREE T4 1.6 0.9 - 1.7 ng/dL [facility] Blood 03/01/2025 11:1 1 AM EDT 03/01/2025 11:15 AM EDT us Artemio Canales DO LAB BLOOD ORDERABLES Final Resul t Performing Organization Address [facility] Co de Phone Number [address] [address] from Last 3 Months [place] [id number] [place] [facility] [place] [facility] & [place] MEDICARE PART A & B [facility] Care Teams Painting Instructor Relationship Specialty Start Date End Date Scot Buchanan MD [address] [place] [id number] PCP - General Internal Medicine 03/01/25 Additional Source Comments The information contained in this document represents components of the legal health record. It is not the complete legal health record.[facility]
--- OUTSIDE RECORDS SUMMARY | 2025-05-03 18:23 | XMS_ITS | Encounter Summary ---
Author Organization [facility] Address [address] [place] [address] Phone Care Team Providers Care Client Services Director Name Role Phone Chris Jamil DO Primary Care Provider [phone] Pcp, Unknown Primary Care Provider Scot Newton MD Primary Care Provid er Encounter Details Date Type Department Care Team (Late st Contact Info) Description 01/02/2018 Procedure Pass [facility] [address] [facility] [place] [address] Social History Tobacco Use Types Packs/Day Years [...] Info) Description 06/10/2025 3:00 PM EDT Telemedicine [facility] Neurology at [place] [address] [place] [address] Bairon Zamorano MD [address] [facility] [place] [address] [email or web address] 06/17/2025 10:50 AM EDT Office Visit [place] [address] [place] [address] [email or web address] documented as of this encounter Visit Diagnoses Not on filedocumented in this encounter Care Teams Client Services Director Relationship Specialty Start Date End Date Chris Jamil DO [address] [place] [address] PCP - General Internal Medicine 10/03/17 08/24/24 Pcp, Unknown PCP - General 08/25/24 02/28/25 Scot Buchanan MD [address] [place] [phone] PCP - General Internal Medicine 03/01/25 documented as of this encounter Additional Source Comments The information contained in this document represents components of the legal health record. It is not the complete legal health record.[facility]
--- OUTSIDE RECORDS SUMMARY | 2025-05-03 18:23 | XMS_ITS | Encounter Summary ---
Author Organization [facility] Address [address] [place] [address] Phone Care Team Providers Care Halal Meat Packer Name Role Phone Chris Jamil DO Primary Care Provider Pcp, Unknown Primary Care Provider Scot Newton MD Primary Care Provid er Encounter Details Date Type Department Care Team (Late st Contact Info) Description 09/25/2021 Procedure Pass [address] [place] [address] Social History Tobacco Use Types Packs/Day Years [...] Info) Description 06/10/2025 3:00 PM EDT Telemedicine [facility] Neurology at [place] [address] [place] [address] Bairon Zamorano MD [address] [facility], [address] [place] [address] [email or web address] 06/17/2025 10:50 AM EDT Office Visit [facility] [address] [place] [address] [email or web address] documented as of this encounter Visit Diagnoses Not on filedocumented in this encounter Care Teams Halal Meat Packer Relationship Specialty Start Date End Date Chris Jamil DO [address] [place] [address] PCP - General Internal Medicine 10/03/17 08/24/24 Pcp, Unknown PCP - General 08/25/24 02/28/25 Scot Buchanan MD [address] [place] [address] PCP - General Internal Medicine 03/01/25 documented as of this encounter Additional Source Comments The information contained in this document represents components of the legal health record. It is not the complete legal health record.[facility]
--- OUTSIDE RECORDS SUMMARY | 2025-05-03 18:23 | XMS_ITS | Encounter Summary ---
Author Organization [facility] Address [address] [place] [address] Phone Care Team Providers Care Potato Bucker Name Role Phone Chris Jamil DO Primary Care Provider [phone] Pcp, Unknown Primary Care Provider Scot Newton MD Primary Care Provid er Encounter Details Date Type Department Care Team (Late st Contact Info) Description 10/30/2019 Procedure Pass [facility] - MRI [address] [facility], 6th [place] [address] Social History Tobacco Use Types Packs/Day Years [...] 06/10/2025 3:[address] [facility] Neurology at [place] [address] [facility] [address] [place] [address] Bairon Zamorano MD [address] [facility], [address] [place] [address] [email or web address] 06/17/2025 10:50 AM EDT Office [place] [address] [place] [address] [email or web address] documented as of this encounter Visit Diagnoses Not on filedocumented in this encounter Care Teams Potato Bucker Relationship Specialty Start Date End Date Chris Jamil DO [address] [place] [address] PCP - General Internal Medicine 10/03/17 08/24/24 Pcp, Unknown PCP - General 08/25/24 02/28/25 Scot Buchanan MD [address] [place] [address] PCP - General Internal Medicine 03/01/25 documented as of this encounter Additional Source Comments The information contained in this document represents components of the legal health record. It is not the complete legal health record.[facility]
--- OUTSIDE RECORDS SUMMARY | 2025-05-03 18:23 | XMS_ITS | Encounter Summary ---
Author Organization [facility] Address [address] [place] [address] Phone Care Team Providers Care Sounding Device Operator Name Role Phone Chris Jamil DO Primary Care Provider [phone] Pcp, Unknown Primary Care Provider Scot Newton MD Primary Care Provid er Encounter Details Date Type Department Care Team (Late st Contact Info) Description 01/02/2018 Procedure Pass [facility] [place], [place] [address] [facility], 2nd [place] [address] Social History Tobacco Use Types Packs/Day Years [...] Info) Description 06/10/2025 3:00 PM EDT Telemedicine [facility] Neurology at [place] [address] [place] [address] Bairon Zamorano MD [address] [facility], [address] [place] [address] [email or web address] 06/17/2025 10:50 AM EDT Office [place] [address] [place] [address] [email or web address] documented as of this encounter Visit Diagnoses Not on filedocumented in this encounter Care Teams Sounding Device Operator Relationship Specialty Start Date End Date Chris Jamil DO [address] [place] [address] PCP - General Internal Medicine 10/03/17 08/24/24 Pcp, Unknown PCP - General 08/25/24 02/28/25 Scot Buchanan MD [address] [place] [address] PCP - General Internal Medicine 03/01/25 documented as of this encounter Additional Source Comments The information contained in this document represents components of the legal health record. It is not the complete legal health record.[facility]
--- OUTSIDE RECORDS SUMMARY | 2025-05-03 18:23 | XMS_ITS | Encounter Summary ---
Author Organization [facility] Address [address] [place] [address] Phone Care Team Providers Care Corporate Meeting Planner Name Role Phone Chris Jamil DO Primary Care Provider Pcp, Unknown Primary Care Provider Scot Newton MD Primary Care Provid er Encounter Details Date Type Department Care Team (Late Contact Info) Description 12/27/2017 Procedure Pass [facility] General Imaging [address] [place] [address] Social History Tobacco Use Types Packs/Day Years Used Date Smoking Tobacco: Never Smokeless Tobacco: Never Comments Unknown Sex and Gender Information Value Date Recorded Sex Assigned at Female 11/09/2019 9:52 AM EDT Legal Sex Female 2:35 PM EDT Gender Identity Female 11/09/2019 9:52 AM EDT Sexual Orientation Straight 11/09/2019 9: 52 AM EDT documented as of this encounter Plan of Treatment Upcoming Encounters Date Type Department Care Team (Late Contact Info) Description 06/10/2025 3:00 PM EDT Telemedicine [facility] Neurology at [place] [address] [facility] [address] [place] [address] Bairon Zamorano MD [address] [facility], [address] [place] [address] [email or web address] 06/17/2025 10:50 AM EDT Office Visit [facility] [address] [place] [address] Artemio Canales DO [address] [place] [address] [email or web address] documented as of this encounter Visit Diagnoses Not on filedocumented in this encounter Care Teams Corporate Meeting Planner Relationship Specialty Start Date End Date Chris Jamil DO [address] [place] [address] PCP - General Internal Medicine 10/03/17 08/24/24 Pcp, Unknown PCP - General 08/25/24 02/28/25 Scot Buchanan MD [address] [place] [address] PCP - General Internal Medicine 03/01/25 documented as of this encounter Additional Source Comments The information contained in this document represents components of the legal health record. It is not the complete legal health record.[facility]
--- OUTSIDE RECORDS SUMMARY | 2025-05-03 18:23 | XMS_ITS | Clinical Summary ---
Author Organization [facility] it Address [address] [place] [address] Care Team Providers Care Health Care Specialist Name Role Phone Chris Jamil DO Primary Care Provider [phone] Social History Tobacco Use Types Packs/Day Years [...] 07/21/2022 Social Influencers of Health Screening 07/21/2022 Depression Screening 08/19/2024 COVID-19 Vaccine (1 - 2023-2 5 season) 2025 Influenza Vaccine (#1) 2025 HIB Vaccines Aged [...] age to complete this topic Care Teams Health Care Specialist Relationship Specialty Start Date End Date Chris Jamil DO [address] [place] [phone] PCP - General Internal Medicine 09/16/17
== END 2025-05-03 13:57 | disposition home or self-care (01) ==
LOC: HO.PMC 13:15
PROVIDERS: PCP Internal Medicine; Visit Provider Internal Medicine
DX: Z98.890 Other specified postprocedural states (principal); R51.9 Headache, unspecified
CPT/HCPCS: 99213

== ENCOUNTER → 2025-05-03 13:14 | Outpatient (BNVA) | payer MEDICARE, MEDICAID, SELFPAY | PROVIDERS: PCP Internal Medicine; Visit Provider Internal Medicine | DX: G89.18 Other acute postprocedural pain (principal); R51.9 Headache, unspecified | CPT/HCPCS: 99212 ==

== ENCOUNTER 2025-06-14 11:25 | Outpatient (AMB) | payer MEDICARE, MEDICAID, SELFPAY ==
--- OUTSIDE RECORDS SUMMARY | 2010-12-01 | XMS_ITS | Encounter Summary ---
Author Organization [facility] Address [address] [place] [phone] Phone Care Team Providers Care Executive Director Name Role Phone Unavailable Primary Care Provider Unavailabl e Reason for Visit * MRI/CAT Scan - Closed Specialty Diagnoses / Procedures Referred By Contcristóbal t Referred To Contact Procedures MRI Brain Outside (No Interpretation) Carol Akins MD, PhD [address] [place] [address] Phone: tel: fax: mailto:[email or web address] [email or web address] Referral ID Status Reason Start Date Expiration Date Visits Re quested Visits Authorized [id number] Closed 12/08/2018 12/08/2019 1 1 Encounter Details Date Type Department Care Team (Late st Contact Info) Description 12/01/2010 Hospital Encounter [facility] [address] [place] [address] Carol Akins MD, PhD [address] [place] [address] [email or web address] Social History Tobacco Use Types Packs/Day [...] 08/25/2024 11:33 AM Faye Kumari RN * [place] Suicide Severity Rating Scale (Screener/Recent Self-Report) Question Answer Date of Assessment Author 1. Wish to be (Past 1 Month) No 025 11:33 AM Faye Shetty RN 2. Non-Specific Active Suici dominick Thoughts (Past 1 Month) No 08/25/2024 11:33 AM Jayy Shetty RN 6. Suicidal Behavior (Lifetime) No 11:33 AM Faye Shetty RN documented as of this encounter Plan of Treatment Upcoming Encounters Date Type Department Care Team (Late st Contact Info) Description 06/17/2025 10:50 AM EDT Office Visit [facility] [address] [place] [address] Artemio Canales DO [address] [place] [address] documented as of this encounter Procedures Procedure Name Priority Date/Time Associated Diagnosis Comments MRI BRAIN OUTSIDE (NO INTERPRETATION) Routine 12/01/2010 12:00 AM EDT documented in this encounter Results * MRI Brain Outside (No Interpretation) (12/01/2010 12:00 AM EDT) Narrative [facility] [place] - 12/08/2018 11:47 AM EDT This study is for PACS storage only and not for interpretation. us Carol Akins MD, PhD IMG OUTSIDE IMAGING W/ OUT INTERPRETATION Final Result [facility] [place] [place] documented in this encounter Visit Diagnoses Not on filedocumented in this encounter Additional Source Comments The information contained in this document represents components of the legal health record. It is not the complete legal health record.[facility]
[2025-06-14 12:07] VITALS: BP 160/92; PULSE 64; BMI 26.9
--- NOTE | 2025-06-14 12:07 | MHC.OFFVIS ---
Vital Signs 06/14/25 12:07 Height 5 ft 7 in Weight 171 lb 8.314 oz BMI 26.9 BP 160/92 H Blood Pressure Location Lt brachial Position Sitting Pulse 64 Intake Visit Reasons: 4m Intake Note: Rosalinda presents in office e today in follow up of globus sensation. CC: She c/o constipation, a little bit of bright red blood with BMs, reflux at night. Per patient she tried trulance, linzess, and motegrity and they did not help much with constipation. Seismograph Observer Required: No Accompanied by: Self / Same As Patient Allergies meperidine (Demerol) Allergy (Unknown, Verified 06/14/25 12:17) nausea From VISTARIL Allergy (Unknown, Uncoded 05/03/25 13:18) NAUSEA & VOMITING Wellbutrin Allergy (Unknown, Uncoded 05/03/25 13:18) nausea HPI HPI 4m: Details: 59 yr old f with hx of thyroid dz here for f/u RECAP She had feeling of something stuck in the esophagus she can swallow fine she had a feeling like something squeezing in the chest, does not go to arm or neck, worse with bending or lifting she has a lot of heartburn, she takes pantoprazole 80 mg and it does not work she tried carafate after going to ER and pepcid, zofran, maybe helping a little she has constipation, normal for her, going on for years small amount of blood in stool she had cologuard and it was negative she had last EGD 2016 and she had stretching for the same sx except she has burning in the stomahc as well now she has migraines and was taking a lot of 400 mg ibuprofen three times a week for years weight loss over 1 week, eating small amounts of food due to stomach irritation I did a EGD, colo 09/12 with balloon dilation Impression and Post Procedure Diagnosis: Endoscopy Findings: fundic gland polyps esophagitis Colonoscopy Findings: colon polyps internal hemorrhoids bx with increased WC in duodenum, celiac neg tubualr adenomata INTERIM: improvement in globus sensation she still has bad constipation, going once a week tried trulance, motegrity, and linaclotide she has incomplete feeling with evacuation EXAM: GENERAL: The patient is well developed and nontoxic. VITAL SIGNS:see workflow HEENT: Nonicteric sclerae, PERRLA, EOMI. Oropharynx clear. Moist mucous membranes. Conjunctivae appear well perfused. thyroid nodules on left felt, tender CHEST: Chest wall is nontender. HEART: Regular rate and rhythm without murmurs. LUNGS: Clear to auscultation bilaterally. ABDOMEN: Soft, positive bowel sounds, tender epigastrium, no organomegaly.no flank tenderness SKIN: No rash, no excessive bruising, petechiae, or purpura. NEUROLOGIC: Cranial nerves II-XII intact without motor/sensory deficit. Psych: normal affect A/P: 1/ GLobus sensation, improved 2/ constipation ? due to pelvic floor dyssnergy PLAN: 1/ Mr defecography 2/ maybe PT 3/ rechekc BP--recheck was better but still elevated, she will f/u PCP and buy a machine at home, advised to record numbers if consistently high then will need treatment 4/ trial of lactulose 5/ may need combo of motegrity and trulance [facility] Medical History (Updated 06/14/25 @ 12:43 by Everett Carter MD) GERD (gastroesophageal reflux disease) Anxiety Chronic back pain Chronic neck pain Hypothyroidism Restless leg Headache Meningioma Irritable bowel syndrome Moses thyroiditis Hemorrhoids with complication Hypertension Depression Thyroid disease Surgical History (Updated 05/11/25 @ 09:00 by Ralph Mckinney MD) History of colonoscopy with polypectomy (09/08/24) History of esophagogastroduodenoscopy (EGD) History of excision of tumor of brain meninges History of tonsillectomy Family History Mother Skin cancer Social History Housing: House Alcohol intake: never Patient Tobacco Use Status: Never used Tobacco service: No Current occupational status: employed 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 Cognitive needs: No Hearing needs: No Vision needs: Yes (reading glasses) Physical Exam Vital Signs: Last Vital Signs Pulse 64 06/14/25 12:07 BP 160/92 H 06/14/25 12:07 BMI result Body Mass Index 26.9 Assessment & Plan Assessment & Plan (1) Hemorrhoids with complication: Code(s): K64.8 - Other hemorrhoids Category: Medical Plan: as above (2) Pelvic floor dysfunction: Code(s): M62.89 - Other specified disorders of muscle Category: Medical Plan: as above Orders: Orders MR pelvis wo con 06/14/25 M62.89 - Other specified disorders of muscle Medications: New lactulose 20 grams (30 mL) PO BID 3,000 mL 1RF Coding Level of Care Code Est Pt Level 3 (23851) Diagnoses Hemorrhoids with complication K64.8 Pelvic floor dysfunction M62.89
--- OUTSIDE RECORDS SUMMARY | 2025-06-14 14:40 | XMS_ITS | Encounter Summary ---
Author Organization [facility] Address [address] [place] [address] [place] [address] Phone Care Team Providers Care Pneumatic Hoist Operator Name Role Phone Chris Jamil DO Primary Care Provider Pcp, Unknown Primary Care Provider Scot Newton MD Primary Care Provid er Encounter Details Date Type Department Care Team (Late st Contact Info) Description 12/09/2018 Procedure Pass [facility] - MRI [address] [facility], 6th [place] [address] Social History Tobacco Use Types Packs/Day Years [...] AM EDT Office Visit [facility] [address] [place] [address] Artemio Canales DO [address] [place] [address] [email or web address] documented as of this encounter Visit Diagnoses Not on filedocumented in this encounter Care Teams Pneumatic Hoist Operator Relationship Specialty Start Date End Date Chris Jamil DO [address] [place] [address] PCP - General Internal Medicine 10/03/17 08/24/24 Pcp, Unknown PCP - General 08/25/24 02/28/25 Scot Buchanan MD [address] [place] [address] PCP - General Internal Medicine 03/01/25 documented as of this encounter Additional Source Comments The information contained in this document represents components of the legal health record. It is not the complete legal health record.[facility]
--- OUTSIDE RECORDS SUMMARY | 2025-06-14 14:40 | XMS_ITS | Encounter Summary ---
Author Organization [facility] Address [address] [place] [address] Phone Care Team Providers Care Steel Tier Name Role Phone Chris Jamil DO Primary Care Provider Pcp, Unknown Primary Care Provider Scot Newton MD Primary Care Provid er Encounter Details Date Type Department Care Team (Late st Contact Info) Description 05/02/2018 Procedure Pass [facility] [address] [place] [address] Social History Tobacco Use Types Packs/Day Years [...] 10:50 AM EDT Office Visit [facility] [address] [place] [address] documented as of this encounter Visit Diagnoses Not on filedocumented in this encounter Care Teams Steel Tier Relationship Specialty Start Date End Date Chris Jamil DO [address] [place] [address] PCP - General Internal Medicine 10/03/17 08/24/24 Pcp, Unknown PCP - General 08/25/24 02/28/25 Scot Buchanan MD [address] [place] [address] PCP - General Internal Medicine 03/01/25 documented as of this encounter Additional Source Comments The information contained in this document represents components of the legal health record. It is not the complete legal health record.[facility]
--- OUTSIDE RECORDS SUMMARY | 2025-06-14 14:41 | XMS_ITS | Encounter Summary ---
Author Organization [facility] Address [address] [place] [address] Phone Care Team Providers Care Counsellors Name Role Phone Chris Jamil DO Primary Care Provider [phone] Pcp, Unknown Primary Care Provider Scot Newton MD Primary Care Provid er Encounter Details Date Type Department Care Team (Late st Contact Info) Description 11/15/2017 Procedure Pass [facility] [address] [place] [address] Social History Tobacco Use Types Packs/Day Years [...] 10:50 AM EDT Office Visit [facility] [place] [address] [place] [address] [email or web address] documented as of this encounter Visit Diagnoses Not on filedocumented in this encounter Care Teams Counsellors Relationship Specialty Start Date End Date Chris Jamil DO [address] [place] [address] PCP - General Internal Medicine 10/03/17 08/24/24 Pcp, Unknown PCP - General 08/25/24 02/28/25 Scot Buchanan MD [address] [place] [address] PCP - General Internal Medicine 03/01/25 documented as of this encounter Additional Source Comments The information contained in this document represents components of the legal health record. It is not the complete legal health record.[facility]
--- OUTSIDE RECORDS SUMMARY | 2025-06-14 14:41 | XMS_ITS | Encounter Summary ---
Author Organization [facility] Address [address] [facility] [address] [place] [address] Phone Care Team Providers Care Ventilation Worker Name Role Phone Chris Jamil DO Primary Care Provider [phone] Pcp, Unknown Primary Care Provider Scot [place] MD Primary Care Provid er Reason for Referral * Consultation (Elective) - Closed Specialty Diagnoses / Procedures Referred By Ginette watson Referred To Contact Neurology Diagnoses Multiple sclerosis Chris Jamil DO [address] [place] [address] Phone: tel: fax: [address] [phone] Phone: tel: Referral ID Status Reason Start Date Expiration Date Visits Re quested Visits Authorized [id number] Closed 10/17/2017 10/17/2018 1 1 Scheduling Instructions Self referral 2nd opinion request for MS clinic Encounter Details Date Type Department Care Team (Latest Contact Info) Description 10/17/2017 Transcribe Orders [facility] Department of Neurology [address] [place] [address], 8th Floor, [address] [place] [address] Chris Jamil DO [address] [place] [address] Multiple sclerosis (Primary Dx) Social History Tobacco [...] AM EDT Office Visit [facility] [address] [place] [address] Artemio Canales DO [address] [place] [address] [email or web address] Scheduled Referrals Name Type Priority Associated Diagnoses Order Schedule Ambulatory referral to [facility] Neurology Outpatient Referral Routine Multiple sclerosis Ordered: 10/17/2017 documented as of this encounter Visit Diagnoses Diagnosis Multiple sclerosis- Primary documented in this encounter Care Teams Ventilation Worker Relationship Specialty Start Date End Date Chris Jamil DO [address] [place] [address] PCP - General Internal Medicine 10/03/17 08/24/24 Pcp, Unknown PCP - General 08/25/24 02/28/25 Scot Buhcanan MD [address] [place] [address] PCP - General Internal Medicine 03/01/25 documented as of this encounter Additional Source Comments The information contained in this document represents components of the legal health record. It is not the complete legal health record.[facility]
--- OUTSIDE RECORDS SUMMARY | 2025-06-14 14:41 | XMS_ITS | Clinical Summary ---
Author Organization [facility] Address [address] [place] [address] Phone Care Team Providers Care Activity Therapist Name Role Phone Scot Buchanan MD Primary [...] repeat biopsy. This will be done at [facility] radiology at [address] I informed the patient that the [...] recommend repeating the ultrasound on 01/20/2025 at [facility]. If there is significant growth of this [...] levothyroxine which is 100 mcg. TSH at [facility] was 0.6 and this is on the [...] syndrome 11/15/2017 Neck pain 11/15/2017 Meningioma 11/15/2017 Family History Medical History Relation Comments Mesothelioma [...] 10:50 AM EDT Office Visit [facility] [address] [place] [address] Artemio Canales DO [address] [place] [address] [email or web address] Health Maintenance Due Date Last Done Comments [...] 06/28/2020, 05/25/2019, Additional history exists COVID-19 VACCINE ( - season) 2025 12/12/2020 LIPID PANEL 12/20/2025 12/20/2020 COLOGUARD 02/07/2026 02/07/2023 COLORECTAL CANCER SCREENING 02/07/2026 TSH LEVEL 03/01/2026 03/01/2025, 06/20, 01/17/2024 SCREENING FOR DIABETES 08/25/2027 08/25/2024 RSV VACCINE (1 - 1-dose 75+ series) 2041 SMOKING STATUS SCREENING (Once After 26 Yrs) [...] Date/Time Associated Diagnosis Comments OUTSIDE LAB 03/26/2025 TSH Routine 03/01/2025 11:11 AM EDT 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 from Last 3 Months or Most Recently Relevant to Health Maintenance Results * Outside Lab (03/26/2025) us Scanning Interface Provider LAB BLOOD ORDERABLES Final Result * TSH (03/01/2025 11:11 AM EDT) TSH 1.33 0.27 - 4.20 uIU/mL [facility] Blood 03/01/2025 11:1 1 AM EDT 03/01/2025 11:15 AM EDT us Artemio Canales DO LAB BLOOD ORDERABLES Final Resul t [facility] [address] [place], [place] [phone] from Last 3 Months or Most Recently Relevant to Health Maintenance Insurance MEDICARE PART A & B [facility] & B [facility] PART A & B [place] [facility] MEDIC[facility] PART A & [place] & B [facility] Care Teams Activity Therapist Relationship Specialty Start Date End Date Scot Buchanan MD [address] [place] [address] [phone] PCP - General Internal Medicine 03/01/25 Additional Source Comments The information contained in this document represents components of the legal health record. It is not the complete legal health record.[facility]
--- OUTSIDE RECORDS SUMMARY | 2025-06-14 14:41 | XMS_ITS | Encounter Summary ---
Author Organization [facility] Address [address] [facility] [address] [place] [address] Phone Care Team Providers Care Nursing Aide Name Role Phone Chris Jamil DO Primary Care Provider Pcp, Unknown Primary Care Provider Scot Newton MD Primary Care Provid er Encounter Details Date Type Department Care Team (Late st Contact Info) Description 12/27/2017 Procedure Pass [facility] General Imaging [address] [place] [address] Social History Tobacco Use Types Packs/Day Years [...] Department Care Team (Late Contact Info) Description 06/17/2025 10:50 AM EDT Office Visit [facility] [place] [address] [place] [address] [email or web address] documented as of this encounter Visit Diagnoses Not on filedocumented in this encounter Care Teams Nursing Aide Relationship Specialty Start Date End Date Chris Jamil DO [address] [place] [phone] PCP - General Internal Medicine 10/03/17 08/24/24 Pcp, Unknown PCP - General 08/25/24 02/28/25 Scot Buchanan MD [address] [place] [address] PCP - General Internal Medicine 03/01/25 documented as of this encounter Additional Source Comments The information contained in this document represents components of the legal health record. It is not the complete legal health record.[facility]
--- OUTSIDE RECORDS SUMMARY | 2025-06-14 14:41 | XMS_ITS | Clinical Summary ---
Author Organization [facility] Address [address] [place] [address] Phone Care Team Providers Care Shuttler Car Name Role Phone Chris Jamil DO Primary Care Provider [phone] Medications Qulipta 10 mg tablet Take 1 tablet by mouth 1 (one) time each day. 5 Active cyclobenzaprine (FLEXERIL) 10 mg tablet Take 1 tablet (10 mg total) by mouth. at bedtime 5 Active escitalopram (LEXAPRO) 5 mg tablet Take 1 tablet (5 mg total) by mouth 1 (one) time each day in the morning. 5 Active esomeprazole (NexIUM) [address] capsule Take 1 capsule (40 mg total) by mouth 1 (one) time each day. 5 Active famotidine (PEPCID) 20 mg tablet Take 1 tablet (20 mg total) by mouth 2 (two) times a day. 5 Active gabapentin (NEURONTIN) 300 mg capsule Take 1 capsule (300 mg total) by mouth 1 (one) time each day in the morning. 5 Active levothyroxine (SYNTHROID, LEVOTHROID) 100 mcg tablet Take 1 tablet (100 mcg total) by mouth 1 (one) time each day in the morning. 5 Active Linzess 145 mcg capsule Take 1 capsule (145 mcg total) by mouth 1 (one) time each day. 5 Active LORazepam (ATIVAN) 0.5 mg tablet TAKE 1 TABLET TWICE A DAY NEEDED FOR SEVERE ANXIETY 5 Active meloxicam (MOBIC) 15 mg tablet Take 1 tablet (15 mg total) by mouth 1 (one) time each day. 5 Active Trulance 3 mg tablet Take 1 tablet (3 mg total) by mouth 1 (one) time each day. 5 Active Motegrity 1 mg tablet TAKE 2 MG (2 X 1 MG) ORALLY DAILY 5 Active Nurtec 75 mg dispersible tablet Take 1 tablet (75 mg total) by mouth every other day. 5 Active zolpidem (AMBIEN) 10 mg tablet TAKE 1/2-1 TABLET BY MOUTH NEEDED FOR INSOMNIA 5 Active Encounters Date Type Department Care Team Description 05/19/[address] [place] [address] Angela Powell MD from Last 3 Months Social History Tobacco Use Types Packs/Day Years Used Date Smoking Tobacco: Never Assessed Comments Unknown Sex and Gender Information Value Date Recorded Sex Assigned at Not on file Legal Sex Female 9:34 PM EST Gender Identity Not on file Sexual Orientation Not on file Plan of Treatment Health Maintenance Due Date Last Done Comments Breast Cancer Screening 1966 Colorectal Cancer Screening: Colonoscopy 1966 DTaP,Tdap,and Td Vaccines (1 - Tdap) 1985 Hepatitis B Vaccines (1 of 3 - 19+ 3-dose series) 1985 Cervical Cancer Screening: P ap Smear 11/28/1987 Pneumococcal Vaccine: 50+ Ye ars (1 of 1 - PCV) 2016 Zoster Vaccines (1 of 2) 2016 HIV Screening 07/21/2022 Hepatitis C Screening 07/21/2022 Medicare Annual Wellness Visit 07/21/2022 Social Influencers of Health Screening 07/21/2022 Depression Screening 08/19/2024 COVID-19 Vaccine ( - 2023-2 5 season) 2025 Influenza Vaccine (#1) 2025 RSV Immunization Adult Patie nts (1 - 1-dose 75+ series) 2041 HIB Vaccines Aged Out No longer eligi [...] on patient's age to complete this topic Insurance [place]ID [place]IC[place] Care Teams Shuttler Car Relationship Specialty Start Date End Date Chris Jamil DO [address] [place] [phone] PCP - General Internal Medicine 09/16/17
--- OUTSIDE RECORDS SUMMARY | 2025-06-14 14:42 | XMS_ITS | Encounter Summary ---
Author Organization [facility] Address [address] [place] [address] Phone Care Team Providers Care Landscape Architecture Teacher Name Role Phone Scot Buchanan MD Primary Care Provid er Encounter Details Date Type Department Care Team (Late st Contact Info) Description 03/09/2025 Procedure Pass [facility] [address] [place] [address] Social History Tobacco Use Types Packs/Day Years [...] AM EDT Office Visit [facility] [address] [place] [address] Artemio Canales DO [address] [place] [address] [email or web address] documented as of this encounter Visit Diagnoses Not on filedocumented in this encounter Care Teams Landscape Architecture Teacher Relationship Specialty Start Date End Date Scot Buchanan MD [address] [place] [address] PCP - General Internal Medicine 03/01/25 documented as of this encounter Additional Source Comments The information contained in this document represents components of the legal health record. It is not the complete legal health record.[facility]
--- OUTSIDE RECORDS SUMMARY | 2025-06-14 14:42 | XMS_ITS | Encounter Summary ---
Author Organization [facility] Address [address] [place] [address] [place] [address] Phone Care Team Providers Care Physician'S Aide Name Role Phone Chris Jamil DO Primary Care Provider Pcp, Unknown Primary Care Provider Scot Newton MD Primary Care Provid er Encounter Details Date Type Department Care Team (Late st Contact Info) Description 01/02/2018 Procedure Pass [facility] [address] [facility], 2nd [place] [address] Social History Tobacco Use Types Packs/Day Years [...] AM EDT Office Visit [facility] [address] [place] [address] Artemio Canales DO [address] [place] [address] documented as of this encounter Visit Diagnoses Not on filedocumented in this encounter Care Teams Physician'S Aide Relationship Specialty Start Date End Date Chris Jamil DO [address] [place] [address] PCP - General Internal Medicine 10/03/17 08/24/24 Pcp, Unknown PCP - General 08/25/24 02/28/25 Scot Buchanan MD [address] [place] [address] PCP - General Internal Medicine 03/01/25 documented as of this encounter Additional Source Comments The information contained in this document represents components of the legal health record. It is not the complete legal health record.[facility]
--- OUTSIDE RECORDS SUMMARY | 2025-06-14 14:42 | XMS_ITS | Encounter Summary ---
Author Organization [facility] Address [address] [place] [address] [place] [address] Phone Care Team Providers Care Drywall Hanger Helper Name Role Phone Chris Jamil DO Primary Care Provider Pcp, Unknown Primary Care Provider Scot Newton MD Primary Care Provid er Encounter Details Date Type Department Care Team (Late st Contact Info) Description 01/01/2018 Procedure Pass [facility] [place] [address] [facility], 2nd [place] [address] Social History Tobacco Use Types Packs/Day Years [...] AM EDT Office Visit [facility] [address] [place] [address] Artemio Canales DO 22 [place] [address] documented as of this encounter Visit Diagnoses Not on filedocumented in this encounter Care Teams Drywall Hanger Helper Relationship Specialty Start Date End Date Chris Jamil DO [address] [place] [address] PCP - General Internal Medicine 10/03/17 08/24/24 Pcp, Unknown PCP - General 08/25/24 02/28/25 Scot Buchanan MD [address] [place] [address] PCP - General Internal Medicine 03/01/25 documented as of this encounter Additional Source Comments The information contained in this document represents components of the legal health record. It is not the complete legal health record.[facility]
--- OUTSIDE RECORDS SUMMARY | 2025-06-14 14:42 | XMS_ITS | Encounter Summary ---
Author Organization [facility] Address [address] [place] [address] [place] [address] Phone Care Team Providers Care Gunner'S Mate M Name Role Phone Chris Jamil DO Primary Care Provider [phone] Pcp, Unknown Primary Care Provider Scot Newton MD Primary Care Provid er Encounter Details Date Type Department Care Team (Late st Contact Info) Description 01/02/2018 Procedure Pass [facility] [place] [place], [place] [address] [facility], 2nd [place] [address] Social History Tobacco Use Types Packs/Day Years [...] AM EDT Office Visit [facility] [address] [place] [address] Artemio Canales DO 22 [place] [address] documented as of this encounter Visit Diagnoses Not on filedocumented in this encounter Care Teams Gunner'S Mate M Relationship Specialty Start Date End Date Chris Jamil DO [address] [place] [address] PCP - General Internal Medicine 10/03/17 08/24/24 Pcp, Unknown PCP - General 08/25/24 02/28/25 Scot Buchanan MD [address] [place] [address] PCP - General Internal Medicine 03/01/25 documented as of this encounter Additional Source Comments The information contained in this document represents components of the legal health record. It is not the complete legal health record.[facility]
--- OUTSIDE RECORDS SUMMARY | 2025-06-14 14:43 | XMS_ITS | Encounter Summary ---
Author Organization [facility] Address [address] [place] [address] [place] [address] Phone Care Team Providers Care Data Warehousing Architect Name Role Phone Chris Jamil DO Primary Care Provider [phone] Pcp, Unknown Primary Care Provider Scot Newton MD Primary Care Provid er Encounter Details Date Type Department Care Team (Late st Contact Info) Description 09/25/2021 Procedure Pass [facility], [address] [place] [address] Social History Tobacco Use Types Packs/Day Years [...] 10:50 AM EDT Office Visit [facility] [place] [address] Artemio Canales DO 22 [place] [address] documented as of this encounter Visit Diagnoses Not on filedocumented in this encounter Care Teams Data Warehousing Architect Relationship Specialty Start Date End Date Chris Jamil DO [address] [place] [address] PCP - General Internal Medicine 10/03/17 08/24/24 Pcp, Unknown PCP - General 08/25/24 02/28/25 Scot Buchanan MD [address] [place] [phone] PCP - General Internal Medicine 03/01/25 documented as of this encounter Additional Source Comments The information contained in this document represents components of the legal health record. It is not the complete legal health record.[facility]
--- OUTSIDE RECORDS SUMMARY | 2025-06-14 14:43 | XMS_ITS | Encounter Summary ---
Author Organization [facility] Address [address] [place] [address] [place] [address] Phone Care Team Providers Care Corn Cutter Name Role Phone Chris Jamil DO Primary Care Provider Pcp, Unknown Primary Care Provider Scot Newton MD Primary Care Provid er Encounter Details Date Type Department Care Team (Late st Contact Info) Description 07/03/[address] [facility] - MRI [address] [facility], 6th [place] [address] Social History Tobacco Use Types Packs/Day Years [...] AM EDT Office Visit [facility] [address] [place] [address] Artemio Canales DO 22 [place] [address] [email or web address] documented as of this encounter Visit Diagnoses Not on filedocumented in this encounter Care Teams Corn Cutter Relationship Specialty Start Date End Date Chris Jamil DO [address] [place] [address] PCP - General Internal Medicine 10/03/17 08/24/24 Pcp, Unknown PCP - General 08/25/24 02/28/25 Scot Buchanan MD [address] [place] [address] PCP - General Internal Medicine 03/01/25 documented as of this encounter Additional Source Comments The information contained in this document represents components of the legal health record. It is not the complete legal health record.[facility]
--- OUTSIDE RECORDS SUMMARY | 2025-06-14 14:43 | XMS_ITS | Encounter Summary ---
Author Organization [facility] Address [address] [place] [address] [place] [address] Phone Care Team Providers Care Community Pharmacist Name Role Phone Chris Jamil DO Primary Care Provider Pcp, Unknown Primary Care Provider Scot Newton MD Primary Care Provid er Encounter Details Date Type Department Care Team (Late st Contact Info) Description 10/30/2019 Procedure Pass [facility] - MRI [address] [facility], 6th [place] [address] Social History Tobacco Use Types Packs/Day Years [...] AM EDT Office Visit [facility] [address] [place] [address] Artemio Canales DO 22 [place] [address] [email or web address] documented as of this encounter Visit Diagnoses Not on filedocumented in this encounter Care Teams Community Pharmacist Relationship Specialty Start Date End Date Chris Jamil DO [address] [place] [address] PCP - General Internal Medicine 10/03/17 08/24/24 Pcp, Unknown PCP - General 08/25/24 02/28/25 Scot Buchanan MD [address] [place] [address] PCP - General Internal Medicine 03/01/25 documented as of this encounter Additional Source Comments The information contained in this document represents components of the legal health record. It is not the complete legal health record.[facility]
--- OUTSIDE RECORDS SUMMARY | 2025-06-14 14:43 | XMS_ITS | Encounter Summary ---
Author Organization [facility] Address [address] [place] [address] Phone Care Team Providers Care Hook Up Name Role Phone Chris Jamil DO Primary Care Provider Pcp, Unknown Primary Care Provider Scot Newton MD Primary Care Provid er Encounter Details Date Type Department Care Team (Late st Contact Info) Description 12/08/2018 Procedure Pass [facility] [address] [place] [address] Social History Tobacco Use Types Packs/Day Years [...] 10:50 AM EDT Office Visit [facility] [place] [address] [place] [address] documented as of this encounter Visit Diagnoses Not on filedocumented in this encounter Care Teams Hook Up Relationship Specialty Start Date End Date Chris Jamil DO [address] [place] [address] PCP - General Internal Medicine 10/03/17 08/24/24 Pcp, Unknown PCP - General 08/25/24 02/28/25 Scot Buchanan MD [address] [place] [address] PCP - General Internal Medicine 03/01/25 documented as of this encounter Additional Source Comments The information contained in this document represents components of the legal health record. It is not the complete legal health record.[facility]
== END 2025-06-14 13:02 | disposition home or self-care (01) ==
LOC: HO.HGI 11:25
PROVIDERS: PCP Internal Medicine; Visit Provider Internal Medicine Gastroenterology
DX: K64.8 Other hemorrhoids (principal); M62.89 Other specified disorders of muscle
CPT/HCPCS: 99213

== ENCOUNTER → 2025-06-14 11:25 | Outpatient (BNVA) | payer MEDICARE, MEDICAID, SELFPAY | PROVIDERS: PCP Internal Medicine; Visit Provider Internal Medicine Gastroenterology | DX: K59.00 Constipation, unspecified (principal); K64.8 Other hemorrhoids; K21.00 Gastro-esophageal reflux disease with esophagitis, without bleeding; M62.89 Other specified disorders of muscle; I10 Essential (primary) hypertension | CPT/HCPCS: 99212 ==

== ENCOUNTER 2025-06-29 11:21 | Outpatient (AMB) | payer MEDICARE, MEDICAID, SELFPAY ==
--- OUTSIDE RECORDS SUMMARY | 2010-11-30 23:00 | XMS_ITS | Encounter Summary ---
Author Organization [facility] Address [address] [place] [phone] Phone Care Team Providers Care Instructional Assistant Name Role Phone Unavailable Primary Care Provider Unavailabl e Reason for Visit * MRI/CAT Scan - Closed Specialty Diagnoses / Procedures Referred By Contcristóbal t Referred To Contact Procedures MRI Brain Outside (No Interpretation) Carol Akins MD, PhD [address] [place] [address] Phone: tel: fax: mailto:[email or web address] Referral ID Status Reason Start Date Expiration Date Visits Re quested Visits Authorized [id number] Closed 12/08/2018 12/08/2019 1 1 Encounter Details Date Type Department Care Team ([facility] st Contact Info) Description 12/01/2010 Hospital Encounter [facility] [address] [place] [address] Carol Akins MD, PhD [address] [place] [phone] [email or web address] Social History Tobacco Use Types Packs/Day Years [...] 08/25/2024 11:33 AM Faye Kumari RN * [place] Suicide Severity Rating Scale (Screener/Recent Self-Report) Question [...] 11:10 AM EDT Office Visit [facility] [address] [place] [address] Artemio Canales DO [address] [place] [address] [email or web address] documented as of this encounter Procedures Procedure Name Priority Date/Time Associated Diagnosis Comments MRI BRAIN OUTSIDE (NO INTERPRETATION) Routine 12/01/2010 12:00 AM EDT documented in this encounter Results * MRI Brain Outside (No Interpretation) (12/01/2010 12:00 AM EDT) Narrative [facility] [place] [place] - 12/08/2018 11:47 AM EDT This study is for PACS storage only and not for interpretation. us Carol Akins MD, PhD IMG OUTSIDE IMAGING W/ OUT INTERPRETATION Final Result [facility] documented in this encounter Visit Diagnoses Not on filedocumented in this encounter Additional Source Comments The information contained in this document represents components of the legal health record. It is not the complete legal health record.[facility]
[2025-06-29 11:24] VITALS: BP 143/83; PULSE 80; RESP 14; TEMP 36.4; O2SAT 99; BMI 27.2
--- NOTE | 2025-06-29 11:24 | MHC.PC.OV ---
Vital Signs 06/29/25 11:24 Height 5 ft 7 in Weight 174 lb BMI 27.2 BP 143/83 H Blood Pressure Location Rt brachial Position Sitting Respiration 14 Pulse 80 Pulse Source Pulse Oximeter Temp 97.6 F Temp Source Temporal Artery Scan Pulse Oximetry (%) 99 Oxygen Delivery Method Room Air Intake Visit Reasons: follow up Fish Technologist Required: No Accompanied by: Self / Same As Patient Allergies meperidine (Demerol) Allergy (Unknown, Verified 06/29/25 11:) nausea From VISTARIL Allergy (Unknown, Uncoded 06/29/25 11:) NAUSEA & VOMITING Wellbutrin Allergy (Unknown, Uncoded 06/29/25 11:) nausea Tobacco use date assessed: 12/22/24 Dental Screening Dental Screen Date: 12/22/24 [facility] Medical History (Reviewed 06/29/25 @ 11: by VAIBHAV Rose) GERD (gastroesophageal reflux disease) Anxiety Chronic back pain Chronic neck pain Hypothyroidism Restless leg Headache Meningioma Irritable bowel syndrome Moses thyroiditis Hemorrhoids with complication Hypertension Depression Thyroid disease Surgical History (Reviewed 06/29/25 @ 11: by VAIBHAV Rose) History of colonoscopy with polypectomy (09/08/24) History of esophagogastroduodenoscopy (EGD) History of excision of tumor of brain meninges History of tonsillectomy Family History Mother Skin cancer Social History Housing: House Alcohol intake: never Patient Tobacco Use Status: Never used Tobacco service: No Current occupational status: employed 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 1. Little interest or pleasure in doing things: not at all 2. Feeling down, depressed, or hopeless: not at all 3. Trouble falling or staying asleep, or sleeping too much: not at all 4. Feeling tired or having little energy: not at all 5. Poor appetite or overeating: not at all 6. Feeling bad about yourself - or that you are a failure or have let yourself or your family down: not at all 7. Trouble concentrating on things, such as reading the newspaper or watching television: not at all 8. Moving or speaking so slowly that other people could have noticed. Or the opposite - being so fidgety or restless that you have been moving around a lot more than usual: not at all 9. Thoughts that you would be better off or of hurting yourself in some way: not at all Total score: 0 Source: Developed by Drs. Chris Hathaway, Janeth June, Lencho Soriano and colleagues, with an educational kelly from [employer]. Thrive Questionnaire Date Thrive assessed: 12/22/24 I am a: Patient What is your living situation today?: I have a steady place to live Within the past 12 months, did the food you bought not last and you didn't have the money to get more?: Never true Within the past 12 months, did you worry whether your food would run out before you got money to buy more?: Never true Do you have trouble paying for medicines?: No Do you have trouble getting transportation to medical appointments?: No Do you have trouble paying your heating and electricity bill?: No Do you have trouble taking care of your child, family member or friend?: No Do you have trouble with day-to-day activities such as bathing, preparing meals, shopping, managing finances, etc.?: No Are you currently unemployed and looking for a job?: No Are you interested in more education?: No Please select the resources that you would like help with: None THRIVE Score: 0 AUDIT C Alcohol Use Questionnaire (AUDIT-C) 1. How often do you have a drink containing alcohol?: Never 3. How often do you have six or more drinks on one occasion?: Never Total Score: 0 HOMER-7 AMB Questionnaire HOMER-7 Date HOMER - 7 assessed: 12/22/24 Feeling nervous, anxious, or on edge: 1 = Several days Not being able to stop or control worryin = More than half the days Worrying too much about different things: 2 = More than half the days Trouble relaxin = More than half the days Being so restless that it is hard to sit still: 1 = Several days Becoming easily annoyed or irritable: 1 = Several days Feeling afraid as if something awful might happen: 0 = Not at all Total HOMER-7 score (0-4 normal; 5-9 mild; 10-14 moderate; 15-21 severe): 9 Source: Developed by Drs. Chris Hathaway, Janeth June, Lencho Soriano and colleagues, with an educational kelly from [employer]. Physical exam (Primary Care) Vital Signs: Last Vital Signs Temp 97.6 F 06/29/25 11:24 Pulse 80 06/29/25 11:24 Resp 14 06/29/25 11:24 BP 143/83 H 06/29/25 11:24 Pulse Ox 99 06/29/25 11:24 Oxygen Delivery Method Room Air 06/29/25 11:24 BMI result Body Mass Index 27.2 Tobacco/Smoking Status: Tobacco use Status Tobacco use date assessed 12/22/24 06/29/25 11:26 Patient Tobacco Use Status Never used Tobacco 06/29/25 11:26 PHQ-9: PHQ-9 Score PHQ-9: Total score 0 06/29/25 11:46 Thrive Assessment: Date of Thrive Assessment Date Thrive assessed 12/22/24 06/29/25 11:26 Office Procedures Flu Questionnaire Does the patient have a severe egg allergy?: No Does the patient have severe life threatening allergies?: No Does the patient have a fever or illness today?: No Has the patient ever had Guillain-Spencer Syndrome?: No Has the patient ever had any past reaction to a flu shot?: No Immunizations Fluarix [id number] (PF) 45 mcg (15 mcg x 3)/0.5 mL IM syringe Performing Provider: Scot Buchanan MD [facility] Documented (not given) by: VAIBHAV Rose on 06/29/25 11:46 Reason Not Given: Received Previously Coding Assessment & Plan Assessment & Plan Orders: Orders Influenza [id number] Immunization Today Z23 - Encounter for immunization
--- OUTSIDE RECORDS SUMMARY | 2025-06-29 13:32 | XMS_ITS | Encounter Summary ---
Author Organization [facility] Address [address] [place] [address] Phone Care Team Providers Care Bankruptcy Assistant Name Role Phone Chris Jamil DO Primary Care Provider Pcp, Unknown Primary Care Provider Scot Newton MD Primary Care Provid er Encounter Details Date Type Department Care Team (Late Contact Info) Description 12/08/2018 Procedure Pass [facility] [address] [place] [address] Social History Tobacco Use Types Packs/Day Years [...] Department Care Team (Late Contact Info) Description 03/17/2026 11:10 AM EDT Office Visit [facility] [address] [place] [address] Artemio Canales DO 22 [place] [address] documented as of this encounter Visit Diagnoses Not on filedocumented in this encounter Care Teams Bankruptcy Assistant Relationship Specialty Start Date End Date Chris Jamil DO [address] [place] [address] PCP - General Internal Medicine 10/03/17 08/24/24 Pcp, Unknown PCP - General 08/25/24 02/28/25 Scot Buchanan MD [address] [place] [address] PCP - General Internal Medicine 03/01/25 documented as of this encounter Additional Source Comments The information contained in this document represents components of the legal health record. It is not the complete legal health record.[facility]
--- OUTSIDE RECORDS SUMMARY | 2025-06-29 13:32 | XMS_ITS | Encounter Summary ---
Author Organization [facility] Address [address] [facility] [address] [place] [address] Phone Care Team Providers Care Dumping Machine Operator Name Role Phone Chris Jamil DO Primary Care Provider Pcp, Unknown Primary Care Provider Scot Newton MD Primary Care Provid er Encounter Details Date Type Department Care Team (Late st Contact Info) Description 12/27/2017 Procedure Pass [facility] [address] [place] [address] Social History Tobacco Use Types Packs/Day Years [...] 11:10 AM EDT Office Visit [facility] [place] [address] [place] [address] [email or web address] documented as of this encounter Visit Diagnoses Not on filedocumented in this encounter Care Teams Dumping Machine Operator Relationship Specialty Start Date End Date Chris Jamil DO [address] [place] [address] PCP - General Internal Medicine 10/03/17 08/24/24 Pcp, Unknown PCP - General 08/25/24 02/28/25 Scot Buchanan MD [address] [place] [phone] PCP - General Internal Medicine 03/01/25 documented as of this encounter Additional Source Comments The information contained in this document represents components of the legal health record. It is not the complete legal health record.[facility]
--- OUTSIDE RECORDS SUMMARY | 2025-06-29 13:32 | XMS_ITS | Encounter Summary ---
Author Organization [facility] Address [address] [place] [address] Phone Care Team Providers Care Vocational Psychologist Name Role Phone Chris Jamil DO Primary Care Provider Pcp, Unknown Primary Care Provider Scot Newton MD Primary Care Provid er Encounter Details Date Type Department Care Team (Late st Contact Info) Description 11/15/2017 Procedure Pass [facility] [address] [place] [address] Social History Tobacco Use Types Packs/Day Years [...] 11:10 AM EDT Office Visit [facility] [place] [address] [place] [address] [email or web address] documented as of this encounter Visit Diagnoses Not on filedocumented in this encounter Care Teams Vocational Psychologist Relationship Specialty Start Date End Date Chris Jamil DO [address] [place] [address] PCP - General Internal Medicine 10/03/17 08/24/24 Pcp, Unknown PCP - General 08/25/24 02/28/25 Scot Buchanan MD [address] [place] [address] PCP - General Internal Medicine 03/01/25 documented as of this encounter Additional Source Comments The information contained in this document represents components of the legal health record. It is not the complete legal health record.[facility]
--- OUTSIDE RECORDS SUMMARY | 2025-06-29 13:32 | XMS_ITS | Encounter Summary ---
Author Organization [facility] Address [address] [facility] [address] [place] [address] Phone Care Team Providers Care Teletray Operator Name Role Phone Chris Jamil DO Primary Care Provider [phone] Pcp, Unknown Primary Care Provider Scot Newton MD Primary Care Provid er Reason for Referral * Consultation (Elective) - Closed Specialty Diagnoses / Procedures Referred By Ginette watson Referred To Contact Neurology Diagnoses Multiple sclerosis Chris Jamil DO [address] [place] [address] Phone: tel: fax: [address] [phone] Phone: tel: Referral ID Status Reason Start Date Expiration Date Visits Re quested Visits Authorized [id number] Closed 10/17/2017 10/17/2018 1 1 Scheduling Instructions Self referral 2nd opinion request for MS clinic Encounter Details Date Type Department Care Team (Latest Contact Info) Description 10/17/2017 Transcribe Orders [facility] Department of Neurology [address] [place] [address], 8th Floor, [address] [place] [address] Chris Jamil DO [address] [place] [address] Multiple sclerosis (Primary Dx) Social History Tobacco [...] AM EDT Office Visit [facility] [address] [place] [address] Artemio Canales DO [address] [place] [address] [email or web address] Scheduled Referrals Name Type Priority Associated Diagnoses Order Schedule Ambulatory referral to [facility] Outpatient Referral Routine Multiple sclerosis Ordered: 10/17/2017 documented as of this encounter Visit Diagnoses Diagnosis Multiple sclerosis- Primary documented in this encounter Care Teams Teletray Operator Relationship Specialty Start Date End Date Chris Jamil DO [address] [place] [address] PCP - General Internal Medicine 10/03/17 08/24/24 Pcp, Unknown PCP - General 08/25/24 02/28/25 Scot Buchanan MD [address] [place] [address] PCP - General Internal Medicine 03/01/25 documented as of this encounter Additional Source Comments The information contained in this document represents components of the legal health record. It is not the complete legal health record.[facility]
--- OUTSIDE RECORDS SUMMARY | 2025-06-29 13:32 | XMS_ITS | Encounter Summary ---
Author Organization [facility] Address [address] [place] [address] Phone Care Team Providers Care Community Case Manager Name Role Phone Chris Jamil DO Primary Care Provider [phone] Pcp, Unknown Primary Care Provider Scot Newton MD Primary Care Provid er Encounter Details Date Type Department Care Team (Late st Contact Info) Description 05/02/2018 Procedure [facility] [address] [place] [address] Social History Tobacco Use Types Packs/Day Years [...] AM EDT Office Visit [facility] [address] [place] [address] [place] [address] documented as of this encounter Visit Diagnoses Not on filedocumented in this encounter Care Teams Community Case Manager Relationship Specialty Start Date End Date Chris Jamil DO [address] [place] [address] PCP - General Internal Medicine 10/03/17 08/24/24 Pcp, Unknown PCP - General 08/25/24 02/28/25 Scot Buchanan MD [address] [place] [address] PCP - General Internal Medicine 03/01/25 documented as of this encounter Additional Source Comments The information contained in this document represents components of the legal health record. It is not the complete legal health record.[facility]
--- OUTSIDE RECORDS SUMMARY | 2025-06-29 13:32 | XMS_ITS | Encounter Summary ---
Author Organization [facility] Address [address] [place] [address] [place] [address] Phone Care Team Providers Care Etiquette Coach Name Role Phone Chris Jamil DO Primary Care Provider Pcp, Unknown Primary Care Provider Scot Newton MD Primary Care Provid er Encounter Details Date Type Department Care Team (Late st Contact Info) Description 07/03/2018 Procedure Pass [facility] - MRI [address] [facility], 6th [place] [address] Social History Tobacco Use Types Packs/Day Years [...] AM EDT Office Visit [facility] [address] [place] [address] Artemio Canales DO [address] [place] [address] [email or web address] documented as of this encounter Visit Diagnoses Not on filedocumented in this encounter Care Teams Etiquette Coach Relationship Specialty Start Date End Date Chris Jamil DO [address] [place] [address] PCP - General Internal Medicine 10/03/17 08/24/24 Pcp, Unknown PCP - General 08/25/24 02/28/25 Scot Buchanan MD [address] [place] [address] PCP - General Internal Medicine 03/01/25 documented as of this encounter Additional Source Comments The information contained in this document represents components of the legal health record. It is not the complete legal health record.[facility]
--- OUTSIDE RECORDS SUMMARY | 2025-06-29 13:32 | XMS_ITS | Encounter Summary ---
Author Organization [facility] Address [address] [facility] [address] [place] [address] Phone Care Team Providers Care Plsql Developer Name Role Phone Chris Jamil DO Primary Care Provider Pcp, Unknown Primary Care Provider Scot Newton MD Primary Care Provid er Encounter Details Date Type Department Care Team (Late st Contact Info) Description 01/02/2018 Procedure Pass [facility], [place] [address] [facility], 2nd [place] [address] Social History Tobacco Use Types Packs/Day Years [...] AM EDT Office Visit [facility] [address] [place] [address] Artemio Canales DO [address] [place] [address] documented as of this encounter Visit Diagnoses Not on filedocumented in this encounter Care Teams Plsql Developer Relationship Specialty Start Date End Date Chris Jamil DO [address] [place] [address] PCP - General Internal Medicine 10/03/17 08/24/24 Pcp, Unknown PCP - General 08/25/24 02/28/25 Scot Buchanan MD [address] [place] [address] PCP - General Internal Medicine 03/01/25 documented as of this encounter Additional Source Comments The information contained in this document represents components of the legal health record. It is not the complete legal health record.[facility]
--- OUTSIDE RECORDS SUMMARY | 2025-06-29 13:32 | XMS_ITS | Encounter Summary ---
Author Organization [facility] Address [address] [place] [address] [place] [address] Phone Care Team Providers Care Manager Plumbing Name Role Phone Chris Jamil DO Primary Care Provider Pcp, Unknown Primary Care Provider Scot Newton MD Primary Care Provid er Encounter Details Date Type Department Care Team (Late st Contact Info) Description 10/30/2019 Procedure Pass [facility] - MRI [address] [facility], 6th [place] [address] Social History Tobacco Use Types Packs/Day Years [...] AM EDT Office Visit [facility] [address] [place] [address] Artemio Canales DO [address] [place] [address] [email or web address] documented as of this encounter Visit Diagnoses Not on filedocumented in this encounter Care Teams Manager Plumbing Relationship Specialty Start Date End Date Chris Jamil DO [address] [place] [address] PCP - General Internal Medicine 10/03/17 08/24/24 Pcp, Unknown PCP - General 08/25/24 02/28/25 Scot Buchanan MD [address] [place] [address] PCP - General Internal Medicine 03/01/25 documented as of this encounter Additional Source Comments The information contained in this document represents components of the legal health record. It is not the complete legal health record.[facility]
--- OUTSIDE RECORDS SUMMARY | 2025-06-29 13:32 | XMS_ITS | Clinical Summary ---
Author Organization [facility] Address [address] [place] [address] Phone Care Team Providers Care Biological Engineer Name Role Phone Scot Buchanan MD Primary [...] MG tablet Take 0.5 mg by mouth. 5 Active lactulose (CONSTULOSE) 10 gram/15 mL solution Take 30 g by mouth 2 (two) times a day. 5 Active meloxicam (MOBIC) 15 MG tablet Take 1 tablet by mouth as needed for pain (specific location in comments). 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 She should follow approximately a month later. Assessment & Plan (03/01/2025 10:57 AM EDT): [...] repeat biopsy. This will be done at [facility] radiology at [address] I informed the patient that the [...] recommend repeating the ultrasound on 01/20/2025 at [facility]. If there is significant growth of this nodule which would be 30% or more per year then it will require repeat biopsy. If the nodule is stable in size then we will repeat the ultrasound 2 years later. 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 She was losing weight at the time. Since then she has gained weight. Thyroid function studies done on March 01, 2025 shows that the TSH was 1.33 and the free T4 was in the normal reference range so she should continue with the current dose of levothyroxine at 100 mcg daily. She should repeat thyroid function studies prior to the follow-up visit. Assessment & Plan (03/02/2025 8:22 AM EDT): She has had significant weight loss 19 pounds that probably was due to acid reflux and decreased intake of food. If this is the case maybe she does not require the current dose of levothyroxine which is 100 mcg. 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 from Last 3 Months Family History Medical History Relation Comments Mesothelioma Father Dementia Mother Glaucoma Mother Relation Status Comments Father Mother Social History Tobacco Use Types Packs/Day Years Used Date Smoking Tobacco: Never Passive Smoke Exposure: Never Smokeless Tobacco: Never Tobacco Cessation:Counseling Given: Not Answered Alcohol Use Standard Drinks/Week Comments Yes 0 [...] Sign Reading Time Taken Comments Blood Pressure 140/80 06/17/2025 10:50 AM EDT Pulse 85 06/17/2025 10:50 AM EDT Temperature 36.4 C (97.6 F) 03/01/2025 10:16 AM EDT Respiratory Rate 20 06/17/2025 10:50 AM EDT Oxygen Saturation 98% 06/17/2025 10:50 AM EDT Inhaled Oxygen Concentration - - Weight 77.3 kg (170 lb 6.4 oz) 06/17/2025 10:50 AM EDT Height 169.2 cm (5' 6.6 ) 06/17/2025 10:50 AM ED T Body Mass Index 27.01 06/17/2025 10:50 AM EDT Plan of Treatment Upcoming Encounters Date Type Department Care Team (Late st Contact Info) Description 03/17/2026 11:10 AM EDT Office Visit [facility] [address] [place] [address] Artemio Canales DO [address] [place] [address] Health Maintenance Due Date Last Done Comments Adult Td,Tdap Booster 1966 DEPRESSION SCREENING 1978 HEPATITIS C SCREENING 1984 HIV ONE-TIME SCREENING (18-65 YEARS) 1984 PAP SMEAR 11/28/1987 MAMMOGRAM 2006 COLONOSCOPY 11/28/2011 FIT TEST 11/28/2011 FOBT 11/28/2011 SIGMOIDOSCOPY 11/28/2011 VIRTUAL COLONOSCOPY 11/28/2011 PNEUMOCOCCAL VACCINES (50+ years) (1 of 1 - PCV) 2016 ZOSTER VACCINES (1 of 2) 2016 INFLUENZA VACCINE (#1) 2025 , 06/28/2020, 05/25/2019, Additional history exists COVID-19 VACCINE (2 - season) 2025 12/12/2020 LIPID PANEL 12/20/2025 12/20/2020 COLOGUARD 02/07/2026 02/07/2023 COLORECTAL CANCER SCREENING 02/07/2026 TSH LEVEL 03/01/2026 03/01/2025, 06/20, 01/17/2024 SCREENING FOR DIABETES 08/25/2027 08/25/2024 RSV VACCINE (1 - 1-dose 75+ series) 2041 SMOKING STATUS SCREENING (Once After 26 Yrs) Completed 06/17/2025 HEPATITIS A VACCINES Aged Out No long [...] Procedure Name Priority Date/Time Associated Diagnosis Comments THYROID STIMULATING HORMONE (TSH) Routine 03/01/2025 11:11 AM EDT 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 from Last 3 Months or Most Recently Relevant to Health Maintenance Results * TSH (03/01/2025 11:11 AM EDT) TSH 1.33 0.27 - 4.20 uIU/mL [facility] Blood 03/01/2025 11:1 1 AM EDT 03/01/2025 11:15 AM EDT Artemio Canales DO LAB BLOOD BKR ORDERABLES Final R esult [address] [address] from Last 3 Months or Most Recently Relevant to Health Maintenance Insurance MEDICARE PART A & [id number] [id number] MEDICARE PART [place] & [place] & B HEALTH MEDICARE PART A & [place] & B HEALTH MEDICARE PART A & B [facility] Care Teams Biological Engineer Relationship Specialty Start Date End Date Scot Buchanan MD [address] [place] [address] PCP - General Internal Medicine 03/01/25 Additional Source Comments The information contained in this document represents components of the legal health record. It is not the complete legal health record.[facility]
--- OUTSIDE RECORDS SUMMARY | 2025-06-29 13:32 | XMS_ITS | Encounter Summary ---
Author Organization [facility] Address [address] [facility] [address] [place] [address] Phone Care Team Providers Care Mental Health Case Manager Name Role Phone Chris Jamil DO Primary Care Provider [phone] Pcp, Unknown Primary Care Provider Scot Newton MD Primary Care Provid er Encounter Details Date Type Department Care Team (Late st Contact Info) Description 01/01/2018 Procedure Pass [facility], [place] [address] [facility], 2nd [place] [address] Social History Tobacco Use Types Packs/Day Years [...] AM EDT Office Visit [facility] [address] [place] [address] Artemio Canales DO 22 [place] [address] documented as of this encounter Visit Diagnoses Not on filedocumented in this encounter Care Teams Mental Health Case Manager Relationship Specialty Start Date End Date Chris Jamil DO [address] [place] [address] PCP - General Internal Medicine 10/03/17 08/24/24 Pcp, Unknown PCP - General 08/25/24 02/28/25 Scot Buchanan MD [address] [place] [address] PCP - General Internal Medicine 03/01/25 documented as of this encounter Additional Source Comments The information contained in this document represents components of the legal health record. It is not the complete legal health record.[facility]
--- OUTSIDE RECORDS SUMMARY | 2025-06-29 13:32 | XMS_ITS | Encounter Summary ---
Author Organization [facility] Address [address] [place] [address] [place] [address] Phone Care Team Providers Care Elementary Teacher Name Role Phone Chris Jamil DO Primary Care Provider Pcp, Unknown Primary Care Provider Scot Newton MD Primary Care Provid er Encounter Details Date Type Department Care Team (Late st Contact Info) Description 09/25/2021 Procedure Pass [facility], [address] [place] [address] Social History Tobacco Use Types Packs/Day Years [...] 11:10 AM EDT Office Visit [facility] [address] Artemio Canales DO [address] [place] [address] documented as of this encounter Visit Diagnoses Not on filedocumented in this encounter Care Teams Elementary Teacher Relationship Specialty Start Date End Date Chris Jamil DO [address] [place] [address] PCP - General Internal Medicine 10/03/17 08/24/24 Pcp, Unknown PCP - General 08/25/24 02/28/25 Scot Buchanan MD [address] [place] [address] PCP - General Internal Medicine 03/01/25 documented as of this encounter Additional Source Comments The information contained in this document represents components of the legal health record. It is not the complete legal health record.[facility]
--- OUTSIDE RECORDS SUMMARY | 2025-06-29 13:32 | XMS_ITS | Clinical Summary ---
Author Organization [facility] Address [address] [place] [address] Phone Care Team Providers Care Boat Cleaner Name Role Phone Chris Jamil DO Primary Care Provider [phone] Medications Qulipta 10 mg tablet Take 1 [...] Type Department Care Team Description 05/19/[address] [place] [address] nAgela Powell MD from Last 3 Months Social [...] Depression Screening 08/19/2024 COVID-19 Vaccine (1 - 2024-2 6 season) 2025 Influenza Vaccine (#1) 2025 RSV [...] Insurance [place]ICAID [place] Care Teams Boat Cleaner Relationship Specialty Start Date End Date Chris Jamil DO [address] [place] [phone] PCP - General Internal Medicine 09/16/17
--- OUTSIDE RECORDS SUMMARY | 2025-06-29 13:32 | XMS_ITS | Encounter Summary ---
Author Organization [facility] Address [address] [place] [address] Phone Care Team Providers Care Textile Bag Sewer Name Role Phone Scot Buchanan MD Primary Care Provid er Encounter Details Date Type Department Care Team (Late st Contact Info) Description 03/09/2025 Procedure Pass [facility] [address] [place] [address] Social History Tobacco Use Types Packs/Day Years [...] AM EDT Office Visit [facility] [address] [place] [address] Artemio Canales DO [address] [place] [address] [email or web address] documented as of this encounter Visit Diagnoses Not on filedocumented in this encounter Care Teams Textile Bag Sewer Relationship Specialty Start Date End Date Scot Buchanan MD [address] [place] [address] PCP - General Internal Medicine 03/01/25 documented as of this encounter Additional Source Comments The information contained in this document represents components of the legal health record. It is not the complete legal health record.[facility]
--- OUTSIDE RECORDS SUMMARY | 2025-06-29 13:32 | XMS_ITS | Encounter Summary ---
Author Organization [facility] Address [address] [facility] [address] [place] [address] Phone Care Team Providers Care Senior Planning Manager Name Role Phone Chris Jamil DO Primary Care Provider Pcp, Unknown Primary Care Provider Scot Newton MD Primary Care Provid er Encounter Details Date Type Department Care Team (Late st Contact Info) Description 01/02/2018 Procedure Pass [facility] [place], [place] [address] [facility], 2nd [place] [address] Social History Tobacco Use Types Packs/Day Years [...] AM EDT Office Visit [facility] [address] [place] [address] Artemio Canales DO [address] [place] [address] documented as of this encounter Visit Diagnoses Not on filedocumented in this encounter Care Teams Senior Planning Manager Relationship Specialty Start Date End Date Chris Jamil DO [address] [place] [address] PCP - General Internal Medicine 10/03/17 08/24/24 Pcp, Unknown PCP - General 08/25/24 02/28/25 Scot Buchanan MD [address] [place] [address] PCP - General Internal Medicine 03/01/25 documented as of this encounter Additional Source Comments The information contained in this document represents components of the legal health record. It is not the complete legal health record.[facility]
--- OUTSIDE RECORDS SUMMARY | 2025-06-29 13:32 | XMS_ITS | Encounter Summary ---
Author Organization [facility] Address [address] [place] [address] [place] [address] Phone Care Team Providers Care Insurance Claims Processor Name Role Phone Chris Jamil DO Primary Care Provider Pcp, Unknown Primary Care Provider Scot Newton MD Primary Care Provid er Encounter Details Date Type Department Care Team (Late st Contact Info) Description 12/09/[address] [facility] - MRI [address] [facility], 6th [place] [address] Social History Tobacco Use Types Packs/Day Years [...] AM EDT Office Visit [facility] [address] [place] [address] Artemio Canales DO [address] [place] [address] [email or web address] documented as of this encounter Visit Diagnoses Not on filedocumented in this encounter Care Teams Insurance Claims Processor Relationship Specialty Start Date End Date Chris Jamil DO [address] [place] [address] PCP - General Internal Medicine 10/03/17 08/24/24 Pcp, Unknown PCP - General 08/25/24 02/28/25 Scot Buchanan MD [address] [place] [address] PCP - General Internal Medicine 03/01/25 documented as of this encounter Additional Source Comments The information contained in this document represents components of the legal health record. It is not the complete legal health record.[facility]
== END 2025-06-29 12:02 | disposition home or self-care (01) ==
LOC: HO.HMCSH 11:21
PROVIDERS: PCP Internal Medicine; Visit Provider Internal Medicine
DX: Z23 Encounter for immunization (principal)

== ENCOUNTER → 2025-06-29 11:21 | Outpatient (BNVA) | payer MEDICARE, MEDICAID, SELFPAY | PROVIDERS: PCP Internal Medicine; Visit Provider Internal Medicine | DX: D32.9 Benign neoplasm of meninges, unspecified (principal) | CPT/HCPCS: 90471; 99212 ==

== ENCOUNTER 2025-08-03 10:52 | Outpatient (AMB) | payer MEDICARE, MEDICAID, SELFPAY ==
--- OUTSIDE RECORDS SUMMARY | 2010-11-30 23:00 | XMS_ITS | Encounter Summary ---
Author Organization [facility] Address [address] [place] [phone] Phone Care Team Providers Care Horticultural Therapist Name Role Phone Unavailable Primary Care Provider Unavailabl e Reason for Visit * MRI/CAT Scan - Closed Specialty Diagnoses / Procedures Referred By Contcristóbal t Referred To Contact Procedures MRI Brain Outside (No Interpretation) Carol Akins MD, PhD [address] [place] [address] Phone: tel: fax: mailto:[email or web address] Referral ID Status Reason Start Date Expiration Date Visits Re quested Visits Authorized [id number] Closed 12/08/2018 12/08/2019 1 1 Encounter Details Date Type Department Care Team ([facility] st Contact Info) Description 12/01/2010 Hospital Encounter [facility] [address] [place] [address] Carol Akins MD, PhD [address] [place] [phone] [email or web address] Social History Tobacco Use Types Packs/Day Years Used Date Smoking Tobacco: Never Passive Smoke Exposure: Never Smokeless Tobacco: Never Alcohol Use Standard Drinks/Week Comments Yes 0 (1 standard drink = 0.6 oz pur e alcohol) Education Answer Date Recorded Are you interested in more education? Not on manolo e 12/14/2022 Are you concerned about learning? Not on file 12/14/2022 No 12/14/2022 No 12/14/2022 Digital Access Answer Date Recorded No 01/12/2023 No 01/12/2023 Reliable internet access at home? Not on file 01/12/2023 Device with a working camera? Not on file Intimate Partner Violence Answer Date R ecorded Are you denied basic needs s uch as food, clothing, or medical care? No 03/09/2025 In the past 12 months have y ou been in a relationship with a person who hurts, threatens, or tries to control you? No 03/09/2025 Are you denied basic needs s uch as food, clothing, or medical care? No 03/09/2025 In the past 12 months have y ou been in a relationship with a person who hurts, threatens, or tries to control you? No 03/09/2025 Comments Unknown Sex and Gender Information Value Date Recorded Sex Assigned at Female 11/09/2019 9:52 AM EDT Legal Sex Female 2:35 PM EDT Gender Identity Female 11/09/2019 9:52 AM EDT Sexual Orientation Straight 11/09/2019 9: 52 AM EDT documented as of this encounter Functional Status * Calculated C-SSRS Risk Score (Lifetime/Recent) Answer Date of Assessment Author No Risk Indicated 08/25/2024 11:33 AM Faye Kumari RN * [place] Suicide Severity Rating Scale (Screener/Recent Self-Report) Question Answer Date of Assessment Author 1. Wish to be (Past 1 Month) No 025 11:33 AM Faye Shetty RN 2. Non-Specific Active Suici dominick Thoughts (Past 1 Month) No 08/25/2024 11:33 AM Jayy Shetty RN 6. Suicidal Behavior (Lifetime) No 11:33 AM Faye Shetty, BAO documented as of this encounter Plan of Treatment Upcoming Encounters Date Type Department Care Team (Late st Contact Info) Description 03/17/2026 11:10 AM EDT Office Visit [facility] [address] [place] [address] Artemio Canales DO [address] [place] [address] [email or web address] documented as of this encounter Procedures Procedure Name Priority Date/Time Associated Diagnosis Comments MRI BRAIN OUTSIDE (NO INTERPRETATION) Routine 12/01/2010 12:00 AM EDT documented in this encounter Results * MRI Brain Outside (No Interpretation) (12/01/2010 12:00 AM EDT) Narrative [facility] - 12/08/2018 11:47 AM EDT This study is for PACS storage only and not for interpretation. us Carol Akins MD, PhD IMG OUTSIDE IMAGING W/ OUT INTERPRETATION Final Result [facility] documented in this encounter Visit Diagnoses Not on filedocumented in this encounter Additional Source Comments The information contained in this document represents components of the legal health record. It is not the complete legal health record.[facility]
[2025-08-03 11:03] VITALS: BP 128/78; PULSE 80; RESP 16; TEMP 36.7; O2SAT 100; BMI 27.2
--- NOTE | 2025-08-03 11:03 | A.OFFPC_ITS ---
Vital Signs 08/03/25 11:03 Height 5 ft 7 in Weight 174 lb BMI 27.2 BP 128/78 Blood Pressure Location Rt brachial Position Sitting Respiration 16 Pulse 80 Pulse Source Pulse Oximeter Temp 98.0 F Temp Source Temporal Artery Scan Pulse Oximetry (%) 100 Oxygen Delivery Method Room Air Intake Visit Reasons: 1 month follow up Spar Machine Operator Helper Required: No Accompanied by: Self / Same As Patient Allergies meperidine (Demerol) Allergy (Unknown, Verified 08/03/25 11:04) nausea From VISTARIL Allergy (Unknown, Uncoded 08/03/25 11:04) NAUSEA & VOMITING Wellbutrin Allergy (Unknown, Uncoded 08/03/25 11:04) nausea Tobacco use date assessed: 12/22/24 Dental Screening Dental Screen Date: 12/22/24 HPI HPI Comments History of Present Illness Details History of Present Illness - The patient is a 59 year old female pr esenting for follow-up for blood pressure management and discussion of palpitations. - Regarding her hypertension, the patien t has been monitoring her blood pressure at home and brought a log of recent readings. - She reports taking enalapril 10 mg onc e daily regularly. - Recent readings include 139/87 mmHg, 1 31/77 mmHg, and 124/77 mmHg. - The patient reports experiencing palpi tations, describing them as extra beats and pounding, which occurred two nights ago while trying to sleep on her left side, causing nervousness. - She had a prior evaluation for this at [facility] with Dr. Rodriguez. - The patient reports having a lot of an xiety but is dealing with it. - She uses Ambien for sleep and takes cy clobenzaprine, gabapentin, lactulose, levothyroxine, and meloxicam as needed. - Her mammogram and colonoscopy are up t o date. Social History - Employment: The patient works a [employer] job at [employer] in the evenings, three times a week. - Family/Social: She sometimes watches h er [id number] granddaughter and has dogs. 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 Results - At-home blood pressure monitoring: Viv andinos were 139/87 mmHg, 131/77 mmHg, and 124/77 mmHg. [facility] Medical History GERD (gastroesophageal reflux disease) Anxiety Chronic back pain Chronic neck pain Hypothyroidism Restless leg Headache Meningioma Irritable bowel syndrome Moses thyroiditis Hemorrhoids with complication Hypertension Depression Thyroid disease Surgical History History of colonoscopy with polypectomy (09/08/24) History of esophagogastroduodenoscopy (EGD) History of excision of tumor of brain meninges History of tonsillectomy Family History Mother Skin cancer Social History Housing: House Alcohol intake: never Patient Tobacco Use Status: Never used Tobacco service: No Current occupational status: employed 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 1. Little interest or pleasure in doing things: not at all 2. Feeling down, depressed, or hopeless: not at all 3. Trouble falling or staying asleep, or sleeping too much: not at all 4. Feeling tired or having little energy: not at all 5. Poor appetite or overeating: not at all 6. Feeling bad about yourself - or that you are a failure or have let yourself or your family down: not at all 7. Trouble concentrating on things, such as reading the newspaper or watching television: not at all 8. Moving or speaking so slowly that other people could have noticed. Or the opposite - being so fidgety or restless that you have been moving around a lot more than usual: not at all 9. Thoughts that you would be better off or of hurting yourself in some way: not at all Total score: 0 Source: Developed by Drs. Chris Hathaway, Janeth June, Lencho Soriano and colleagues, with an educational kelly from [employer]. Thrive Questionnaire Date Thrive assessed: 12/22/24 I am a: Patient What is your living situation today?: I have a steady place to live Within the past 12 months, did the food you bought not last and you didn't have the money to get more?: Never true Within the past 12 months, did you worry whether your food would run out before you got money to buy more?: Never true Do you have trouble paying for medicines?: No Do you have trouble getting transportation to medical appointments?: No Do you have trouble paying your heating and electricity bill?: No Do you have trouble taking care of your child, family member or friend?: No Do you have trouble with day-to-day activities such as bathing, preparing meals, shopping, managing finances, etc.?: No Are you currently unemployed and looking for a job?: No Are you interested in more education?: No Please select the resources that you would like help with: None THRIVE Score: 0 AUDIT C Alcohol Use Questionnaire (AUDIT-C) 1. How often do you have a drink containing alcohol?: Never 3. How often do you have six or more drinks on one occasion?: Never Total Score: 0 HOMER-7 AMB Questionnaire HOMRE-7 Date HOMER - 7 assessed: 12/22/24 Feeling nervous, anxious, or on edge: 1 = Several days Not being able to stop or control worryin = More than half the days Worrying too much about different things: 2 = More than half the days Trouble relaxin = More than half the days Being so restless that it is hard to sit still: 1 = Several days Becoming easily annoyed or irritable: 1 = Several days Feeling afraid as if something awful might happen: 0 = Not at all Total HOMER-7 score (0-4 normal; 5-9 mild; 10-14 moderate; 15-21 severe): 9 Source: Developed by Drs. Chris Hathaway, Janeth June, Lencho Soriano and colleagues, with an educational kelly from [employer]. Review of Systems Narrative Review of Systems - Cardiovascular: Reports palpitations, described as extra beats and pounding, particularly two nights ago. - Psychiatric: Reports experiencing a lot of anxiety that can keep her awake at night. - Neurological: Reports difficulty sleeping, for which she takes Ambien. Physical exam (Primary Care) Vital Signs: Last Vital Signs Temp 98.0 F 08/03/25 11:03 Pulse 80 08/03/25 11:03 Resp 16 08/03/25 11:03 BP 128/78 08/03/25 11:03 Pulse Ox 100 08/03/25 11:03 Oxygen Delivery Method Room Air 08/03/25 11:03 BMI result Body Mass Index 27.2 Tobacco/Smoking Status: Tobacco use Status Tobacco use date assessed 12/22/24 08/03/25 11:05 Patient Tobacco Use Status Never used Tobacco 08/03/25 11:05 PHQ-9: PHQ-9 Score PHQ-9: Total score 0 08/03/25 11:05 Thrive Assessment: Date of Thrive Assessment Date Thrive assessed 12/22/24 08/03/25 11:05 Narrative Physical Exam General: Cooperative and healthy appearing Nutritional Appearance: Well nourished Orientation/consciousness: Patient oriented x3 Limitations: No limitations Head: Normal to inspection General: Appearance normal, both eyes and all related structures Neck: Normal visual inspection Chest: Normal palpation of entire chest wall Respiratory: Normal respiratory effort Neurology: Patient oriented x3 Coding Level of Care Code Est Pt Level 4 (91602) Add On Problem Visit Only Diagnoses Hypertension I10 Assessment & Plan Assessment & Plan (1) Hypertension: Code(s): I10 - Essential (primary) hypertension Category: Medical Plan Plan - The patient will continue taking enalapril 10 mg once daily for blood pressure control. - The patient was reassured that the palpitations are not concerning and are not related to her medication. - The patient's palpitations may be related to anxiety. - Ordered fasting blood work. Discussion Notes I reviewed the patient's home blood pressure log, and the readings are reasonably good. I advised her to continue her current medications at the same dosages, including enalapril 10 mg daily. We discussed her episodes of palpitations; I explained that these are likely related to anxiety and are not concerning or a side effect of her medication. I have ordered fasting blood work to be done, as her last labs were some time ago. Patient Instructions - Continue taking your medications as prescribed, including the enalapril for your blood pressure. - Your blood pressure readings at home are good, so keep up with your current routine. - The heart palpitations you are experiencing are not dangerous and may be related to anxiety. - Please go to the lab to get fasting blood work done. Orders: Orders Thyroid Stimulating Hormone Today I10 - Essential (primary) hypertension UA and rflx microscopic Today I10 - Essential (primary) hypertension Basic Metabolic Panel Today I10 - Essential (primary) hypertension Complete Blood Count no Diff Today I10 - Essential (primary) hypertension Lipid Panel Today I10 - Essential (primary) hypertension Liver Panel Today I10 - Essential (primary) hypertension
--- OUTSIDE RECORDS SUMMARY | 2025-08-03 14:05 | XMS_ITS | Encounter Summary ---
Author Organization [facility] Address [address] [place] [address] Phone Care Team Providers Care Community Outreach Advocate Name Role Phone Scot Buchanan MD Primary Care Provid er Encounter Details Date Type Department Care Team (Late st Contact Info) Description 03/09/2025 Procedure Pass [facility] [address] [place] [address] Social History Tobacco Use Types Packs/Day Years [...] AM EDT Office Visit [facility] [address] [place] [address] Artemio Canales DO [address] [place] [address] [email or web address] documented as of this encounter Visit Diagnoses Not on filedocumented in this encounter Care Teams Community Outreach Advocate Relationship Specialty Start Date End Date Scot Buchanan MD [address] [place] [phone] PCP - General Internal Medicine 03/01/25 documented as of this encounter Additional Source Comments The information contained in this document represents components of the legal health record. It is not the complete legal health record.[facility]
--- OUTSIDE RECORDS SUMMARY | 2025-08-03 14:05 | XMS_ITS | Encounter Summary ---
Author Organization [facility] Address [address] [place] [address] Phone Care Team Providers Care Sheriff Deputy Name Role Phone Chris Jamil DO Primary Care Provider Pcp, Unknown Primary Care Provider Scot Newton MD Primary Care Provid er Encounter Details Date Type Department Care Team (Late Contact Info) Description 12/08/2018 Procedure Pass [facility] General Imaging [address] [place] [address] Social History Tobacco Use Types Packs/Day Years [...] AM EDT Office Visit [facility] [address] [place] [address] Artemio Canales DO [address] [place] [address] documented as of this encounter Visit Diagnoses Not on filedocumented in this encounter Care Teams Sheriff Deputy Relationship Specialty Start Date End Date Chris Jamil DO [address] [place] [address] PCP - General Internal Medicine 10/03/17 08/24/24 Pcp, Unknown PCP - General 08/25/24 02/28/25 Scot Buchanan MD [address] [place] [address] PCP - General Internal Medicine 03/01/25 documented as of this encounter Additional Source Comments The information contained in this document represents components of the legal health record. It is not the complete legal health record.[facility]
--- OUTSIDE RECORDS SUMMARY | 2025-08-03 14:05 | XMS_ITS | Encounter Summary ---
Author Organization [facility] Address [address] [facility] [address] [place] [address] Phone Care Team Providers Care Internal Medicine Physician Name Role Phone Chris Jamil DO Primary Care Provider Pcp, Unknown Primary Care Provider Scot Newton MD Primary Care Provid er Encounter Details Date Type Department Care Team (Late st Contact Info) Description 12/27/2017 Procedure Pass [facility] General Imaging [address] [place] [address] Social History Tobacco Use Types Packs/Day Years [...] 11:10 AM EDT Office Visit [facility] [place] [address] [place] [address] [email or web address] documented as of this encounter Visit Diagnoses Not on filedocumented in this encounter Care Teams Internal Medicine Physician Relationship Specialty Start Date End Date Chris Jamil DO [address] [place] [address] PCP - General Internal Medicine 10/03/17 08/24/24 Pcp, Unknown PCP - General 08/25/24 02/28/25 Scot Buchanan MD [address] [place] [address] PCP - General Internal Medicine 03/01/25 documented as of this encounter Additional Source Comments The information contained in this document represents components of the legal health record. It is not the complete legal health record.[facility]
--- OUTSIDE RECORDS SUMMARY | 2025-08-03 14:05 | XMS_ITS | Encounter Summary ---
Author Organization [facility] Address [address] [facility] [address] [place] [address] Phone Care Team Providers Care Therapeutic Program Worker Name Role Phone Chris Jamil DO Primary Care Provider [phone] Pcp, Unknown Primary Care Provider Scot Newton MD Primary Care Provid er Encounter Details Date Type Department Care Team (Late st Contact Info) Description 01/02/2018 Procedure Pass [facility] MRI, [place] [address] [facility], 2nd [place] [address] Social History Tobacco Use Types Packs/Day Years [...] AM EDT Office Visit [facility] [address] [place] [address] Artemio Canales DO [address] [place] [address] documented as of this encounter Visit Diagnoses Not on filedocumented in this encounter Care Teams Therapeutic Program Worker Relationship Specialty Start Date End Date Chris Jamil DO [address] [place] [address] PCP - General Internal Medicine 10/03/17 08/24/24 Pcp, Unknown PCP - General 08/25/24 02/28/25 Scot Buchanan MD [address] [place] [address] PCP - General Internal Medicine 03/01/25 documented as of this encounter Additional Source Comments The information contained in this document represents components of the legal health record. It is not the complete legal health record.[facility]
--- OUTSIDE RECORDS SUMMARY | 2025-08-03 14:05 | XMS_ITS | Encounter Summary ---
Author Organization [facility] Address [address] [facility] [address] [place] [address] Phone Care Team Providers Care Chemical Engineer Name Role Phone Chris Jamil DO Primary Care Provider Pcp, Unknown Primary Care Provider Scot Newton MD Primary Care Provid er Encounter Details Date Type Department Care Team (Late st Contact Info) Description 01/02/2018 Procedure Pass [facility] MRI, [place] [address] [facility], 2nd [place] [address] Social History Tobacco Use Types Packs/Day Years [...] AM EDT Office Visit [facility] [address] [address] Artemio Canales DO 22 [place] [address] documented as of this encounter Visit Diagnoses Not on filedocumented in this encounter Care Teams Chemical Engineer Relationship Specialty Start Date End Date Chris Jamil DO [address] [place] [address] PCP - General Internal Medicine 10/03/17 08/24/24 Pcp, Unknown PCP - General 08/25/24 02/28/25 Scot Buchanan MD [address] [place] [address] PCP - General Internal Medicine 03/01/25 documented as of this encounter Additional Source Comments The information contained in this document represents components of the legal health record. It is not the complete legal health record.[facility]
--- OUTSIDE RECORDS SUMMARY | 2025-08-03 14:05 | XMS_ITS | Encounter Summary ---
Author Organization [facility] Address [address] [place] [address] [place] [address] Phone Care Team Providers Care Manager Style Name Role Phone Chris Jamil DO Primary Care Provider Pcp, Unknown Primary Care Provider Scot Newton MD Primary Care Provid er Encounter Details Date Type Department Care Team (Late st Contact Info) Description 10/30/2019 Procedure Pass [facility] - MRI [address] [facility], 6th [place] [address] Social History Tobacco Use Types Packs/Day Years [...] AM EDT Office Visit [facility] [address] [place] [address] Artemio Canales DO [address] [place] [address] [email or web address] documented as of this encounter Visit Diagnoses Not on filedocumented in this encounter Care Teams Manager Style Relationship Specialty Start Date End Date Chris Jamil DO [address] [place] [address] PCP - General Internal Medicine 10/03/17 08/24/24 Pcp, Unknown PCP - General 08/25/24 02/28/25 Scot Buchanan MD [address] [place] [address] PCP - General Internal Medicine 03/01/25 documented as of this encounter Additional Source Comments The information contained in this document represents components of the legal health record. It is not the complete legal health record.[facility]
--- OUTSIDE RECORDS SUMMARY | 2025-08-03 14:05 | XMS_ITS | Encounter Summary ---
Author Organization [facility] Address [address] [place] [address] [place] [address] Phone Care Team Providers Care District Plant Supervisor Name Role Phone Chris Jamil DO Primary Care Provider Pcp, Unknown Primary Care Provider Scot Newton MD Primary Care Provid er Encounter Details Date Type Department Care Team (Late st Contact Info) Description 07/03/2018 Procedure Pass [facility] - MRI [address] [facility], 6th [place] [address] Social History Tobacco Use Types Packs/Day Years [...] AM EDT Office Visit [facility] [address] [place] [address] Artemio Canales DO [address] [place] [address] [email or web address] documented as of this encounter Visit Diagnoses Not on filedocumented in this encounter Care Teams District Plant Supervisor Relationship Specialty Start Date End Date Chris Jamil DO [address] [place] [address] PCP - General Internal Medicine 10/03/17 08/24/24 Pcp, Unknown PCP - General 08/25/24 02/28/25 Scot Buchanan MD [address] [place] [address] PCP - General Internal Medicine 03/01/25 documented as of this encounter Additional Source Comments The information contained in this document represents components of the legal health record. It is not the complete legal health record.[facility]
--- OUTSIDE RECORDS SUMMARY | 2025-08-03 14:05 | XMS_ITS | Encounter Summary ---
Author Organization [facility] Address [address] [facility] [address] [place] [address] Phone Care Team Providers Care Auto Mechanic Supervisor Name Role Phone Chris Jamil DO Primary Care Provider [phone] Pcp, Unknown Primary Care Provider Scot Newton MD Primary Care Provid er Reason for Referral * Consultation (Elective) - Closed Specialty Diagnoses / Procedures Referred By Ginette watson Referred To Contact Neurology Diagnoses Multiple sclerosis Chris Jamil DO [address] [place] [address] Phone: tel: fax: [address] [phone] Phone: tel: Referral ID Status Reason Start Date Expiration Date Visits Re quested Visits Authorized [id number] Closed 10/17/2017 10/17/2018 1 1 Scheduling Instructions Self referral 2nd opinion request for MS clinic Encounter Details Date Type Department Care Team (Latest Contact Info) Description 10/17/2017 Transcribe Orders [facility] [place] [place] Department of Neurology [address] [place] [address], 8th Floor, [address] [place] [address] Chris Jamil DO [address] [place] [address] Multiple sclerosis (Primary Dx) Social History Tobacco [...] AM EDT Office Visit [facility] [address] [place] [address] Artemio Canales DO [address] [place] [address] [email or web address] Scheduled Referrals Name Type Priority Associated Diagnoses Order Schedule Ambulatory referral to [facility] [place] [place] Neurology Outpatient Referral Routine Multiple sclerosis Ordered: 10/17/2017 documented as of this encounter Visit Diagnoses Diagnosis Multiple sclerosis- Primary documented in this encounter Care Teams Auto Mechanic Supervisor Relationship Specialty Start Date End Date Chris Jamil DO [address] [place] [address] PCP - General Internal Medicine 10/03/17 08/24/24 Pcp, Unknown PCP - General 08/25/24 02/28/25 Scot Buchanan MD [address] [place] [address] PCP - General Internal Medicine 03/01/25 documented as of this encounter Additional Source Comments The information contained in this document represents components of the legal health record. It is not the complete legal health record.[facility]
--- OUTSIDE RECORDS SUMMARY | 2025-08-03 14:05 | XMS_ITS | Clinical Summary ---
Author Organization [facility] Address [address] [place] [address] Phone Care Team Providers Care Letter Sorting Machine Operator Name Role Phone Scot Buchanan MD Primary [...] every morning. 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 She should follow approximately [...] repeat biopsy. This will be done at [facility] radiology at [address] [facility]. I informed the patient that the radiology [...] recommend repeating the ultrasound on 01/20/2025 at [facility]. If there is significant growth of [...] levothyroxine which is 100 mcg. TSH at [facility] was 0.6 and this is on [...] AM EDT Office Visit [facility] [address] [place] [address] Artemio Canales DO Nontoxic multinodular goiter (Primary [...] 11:10 AM EDT Office Visit [facility] [address] [place] [phone] Artemio Canales DO [address] [place] [address] [email or web address] Health Maintenance Due Date Last Done Comments [...] EDT) TSH 1.33 0.27 - 4.20 uIU/mL [facility] Blood 03/01/2025 11:1 1 AM EDT 03/01/2025 11:15 AM EDT us Artemio Canales DO LAB BLOOD BKR ORDERABLES Final R esult [facility] [address] [place] [address] from Last 3 Months or Most Recently Relevant to Health Maintenance Insurance MEDICARE PART A & [place] [facility] & [place] [facility] MED[facility] & B [facility] MEDIC[facility] PART A & B [facility] MEDICARE [facility] A & [place] & B HEALTH MEDICARE PART A & B [facility] Care Teams Letter Sorting Machine Operator Relationship Specialty Start Date End Date Scot Buchanan MD [address] [place] [address] [place] [address] PCP - General Internal Medicine 03/01/25 Additional Source Comments The information contained in this document represents components of the legal health record. It is not the complete legal health record.[facility]
--- OUTSIDE RECORDS SUMMARY | 2025-08-03 14:05 | XMS_ITS | Clinical Summary ---
Author Organization [address] [facility] Address [address] [place] [address] Phone Care Team Providers Care Family Centered Specialist Name Role Phone Chris Jamil DO Primary Care Provider [phone] Medications Qulipta 10 mg tablet Take 1 [...] Type Department Care Team Description 05/19/[address] [place] [address] Angela Powell MD from Last [...] Insurance [place] Care Teams Family Centered Specialist Relationship Specialty Start Date End Date Chris Jamil DO [address] [place] [phone] PCP - General Internal Medicine 09/16/17
--- OUTSIDE RECORDS SUMMARY | 2025-08-03 14:05 | XMS_ITS | Encounter Summary ---
Author Organization [facility] Address [address] [facility] [address] [place] [address] Phone Care Team Providers Care Modeler Name Role Phone Chris Jamil DO Primary Care Provider Pcp, Unknown Primary Care Provider Scot Newton MD Primary Care Provid er Encounter Details Date Type Department Care Team (Late st Contact Info) Description 05/02/2018 Procedure Pass [facility] [address] [place] [address] Social History Tobacco Use Types Packs/Day Years [...] 11:10 AM EDT Office Visit [facility] [place] [address] [place] [address] documented as of this encounter Visit Diagnoses Not on filedocumented in this encounter Care Teams Modeler Relationship Specialty Start Date End Date Chris Jamil DO [address] [place] [address] PCP - General Internal Medicine 10/03/17 08/24/24 Pcp, Unknown PCP - General 08/25/24 02/28/25 Scot Buchanan MD [address] [place] [id number] PCP - General Internal Medicine 03/01/25 documented as of this encounter Additional Source Comments The information contained in this document represents components of the legal health record. It is not the complete legal health record.[facility]
--- OUTSIDE RECORDS SUMMARY | 2025-08-03 14:05 | XMS_ITS | Encounter Summary ---
Author Organization [facility] Address [address] [place] [address] [place] [address] Phone Care Team Providers Care Manager Dairy Name Role Phone Chris Jamil DO Primary Care Provider [phone] Pcp, Unknown Primary Care Provider Scot Newton MD Primary Care Provid er Encounter Details Date Type Department Care Team (Late st Contact Info) Description 12/09/2018 Procedure Pass [facility] [address] [facility], 6th [place] [address] Social History Tobacco Use Types Packs/Day Years [...] AM EDT Office Visit [facility] [address] [place] [address] Artemio Canales DO [address] [place] [address] [email or web address] documented as of this encounter Visit Diagnoses Not on filedocumented in this encounter Care Teams Manager Dairy Relationship Specialty Start Date End Date Chris Jamil DO [address] [place] [phone] PCP - General Internal Medicine 10/03/17 08/24/24 Pcp, Unknown PCP - General 08/25/24 02/28/25 Scot Buchanan MD [address] [place] [phone] PCP - General Internal Medicine 03/01/25 documented as of this encounter Additional Source Comments The information contained in this document represents components of the legal health record. It is not the complete legal health record.[facility]
--- OUTSIDE RECORDS SUMMARY | 2025-08-03 14:05 | XMS_ITS | Encounter Summary ---
Author Organization [facility] Address [address] [facility] [address] [place] [phone] Phone Care Team Providers Care License Distributor Name Role Phone Chris Jamil DO Primary Care Provider Pcp, Unknown Primary Care Provider Scot Newton MD Primary Care Provid er Encounter Details Date Type Department Care Team (Late st Contact Info) Description 01/01/2018 Procedure Pass [facility], [place] [address] [facility] 2nd [place] [address] Social History Tobacco Use Types Packs/Day Years [...] AM EDT Office Visit [facility] [address] [place] [address] Artemio Canales DO [address] [place] [address] documented as of this encounter Visit Diagnoses Not on filedocumented in this encounter Care Teams License Distributor Relationship Specialty Start Date End Date Chris Jamil DO [address] [place] [phone] PCP - General Internal Medicine 10/03/17 08/24/24 Pcp, Unknown PCP - General 08/25/24 02/28/25 Scot Buchanan MD [address] [place] [phone] PCP - General Internal Medicine 03/01/25 documented as of this encounter Additional Source Comments The information contained in this document represents components of the legal health record. It is not the complete legal health record.[facility]
--- OUTSIDE RECORDS SUMMARY | 2025-08-03 14:05 | XMS_ITS | Encounter Summary ---
Author Organization [facility] Address [address] [place] [address] [place] [address] Phone Care Team Providers Care Rehabilitation Engineer Name Role Phone Chris Jamil DO Primary Care Provider Pcp, Unknown Primary Care Provider Scot Newton MD Primary Care Provid er Encounter Details Date Type Department Care Team (Late st Contact Info) Description 09/25/2021 Procedure Pass [facility], [address] [place] [address] Social History Tobacco Use Types Packs/Day Years [...] 11:10 AM EDT Office Visit [facility] [address] Artemio Canales DO [address] [place] [address] documented as of this encounter Visit Diagnoses Not on filedocumented in this encounter Care Teams Rehabilitation Engineer Relationship Specialty Start Date End Date Chris Jamil DO [address] [place] [address] PCP - General Internal Medicine 10/03/17 08/24/24 Pcp, Unknown PCP - General 08/25/24 02/28/25 Scot Buchanan MD [address] [place] [phone] PCP - General Internal Medicine 03/01/25 documented as of this encounter Additional Source Comments The information contained in this document represents components of the legal health record. It is not the complete legal health record.[facility]
--- OUTSIDE RECORDS SUMMARY | 2025-08-03 14:05 | XMS_ITS | Encounter Summary ---
Author Organization [facility] Address [address] [place] [phone] Phone Care Team Providers Care Correspondence Specialist Name Role Phone Chris Jamil DO Primary Care Provider Pcp, Unknown Primary Care Provider Scot Newton MD Primary Care Provid er Encounter Details Date Type Department Care Team (Late st Contact Info) Description 11/15/2017 Procedure [facility] [address] [place] [address] Social History Tobacco Use Types Packs/Day Years [...] 11:10 AM EDT Office Visit [facility] [place] [address] [place] [address] [email or web address] documented as of this encounter Visit Diagnoses Not on filedocumented in this encounter Care Teams Correspondence Specialist Relationship Specialty Start Date End Date Chris Jamil DO [address] [place] [phone] PCP - General Internal Medicine 10/03/17 08/24/24 Pcp, Unknown PCP - General 08/25/24 02/28/25 Scot Buchanan MD [address] [place] [phone] PCP - General Internal Medicine 03/01/25 documented as of this encounter Additional Source Comments The information contained in this document represents components of the legal health record. It is not the complete legal health record.[facility]
== END 2025-08-03 11:32 | disposition home or self-care (01) ==
LOC: HO.HMCSH 10:52
PROVIDERS: PCP Internal Medicine; Visit Provider Internal Medicine
DX: I10 Essential (primary) hypertension (principal)

== ENCOUNTER → 2025-08-03 10:52 | Outpatient (BNVA) | payer MEDICARE, MEDICAID, SELFPAY | PROVIDERS: PCP Internal Medicine; Visit Provider Internal Medicine | DX: I10 Essential (primary) hypertension (principal); R00.2 Palpitations; Z13.31 Encounter for screening for depression | CPT/HCPCS: 96127; 99212 ==